=== PATIENT | female | born 1960 | race Caucasian/White ===

== ENCOUNTER 2017-03-04 08:40 | Emergency (ER) | payer BC ==
--- NOTE | 2017-03-04 08:51 | EDM.PDOC ---
ED HPI GI/ABDOMINAL - General Chief Complaint: Gastrointestinal Problem Stated Complaint: cold [id number] Time Seen by Provider: 03/04/17 08:50 Source of Information: Reports: Patient, Old records, RN, RN notes reviewed History Limitations: Reports: No limitations - History of Present Illness INITIAL COMMENTS - FREE TEXT/NARRATIVE: Arrives from home by POV with c/o persistent nausea, vomiting, diarrhea, and headache. Pt states she got sick around the 12 of February and was seen in clinic 02/15 and was Dx'd with a sinus infection and Tx'd with a shot of Rocephin and a Z-Sylvester. She wasn't feeling any better on the 02/17 and was leaving for 5 [place] in the [place], so she returned to clinic and tested positive for strep throat, and was treated with a second Z-Sylvester. While in the [facility] [place] she and most of her traveling republic[place] developed diarrhea. She hasn't felt well since returning home from the trip. Admits to sensations of fever and chills, but has not had a fever measured by thermometer. Denies sore throat, or abdominal pain. Denies bloody stool, dark or black stool, or melena. Symptom Onset Date: 02/12/17 Timing/Duration: Reports: Waxing/waning Location: generalized Quality: Reports: cramping Severity: moderate Improves with: Reports: other (nothing) Worsens with: Reports: other (eating or drinking) Context: Reports: sick contact, out of country travel, other (recent illness) Associated Symptoms (-Female): Reports: denies other symptoms Treatments [employer]: Reports: Other medication(s) - Related Data Allergies/ADRs: Allergies Allergy/AdvReac Type Severity Reaction Status Date / Time No Known Allergies Allergy Verified 03/04/17 08:56 Home Meds: Home Meds Pantoprazole Sodium 40 mg PO DAILY 06/09/14 [History] Multivitamin [Multivitamins] 1 each PO DAILY 03/10/15 [History] Venlafaxine HCl [Venlafaxine ER] 75 mg PO ASDIRECTED 09/18/15 [History] Acetaminophen [Tylenol Extra Strength] 2 tab PO Q4H 03/04/17 [History] Past Medical History Cardiovascular History: Reports: Blood clots/VTE/DVT Psychiatric History: Reports: Addiction (alcohol abuse) Hematologic History: Reports: Anemia Oncologic (Cancer) History: Reports: Breast - Past Surgical History Oncologic Surgical History: Reports: Mastectomy Social & Family History - Family History Family Medical History: Noncontributory - Tobacco Use Smoking Status *Q: Never Smoker Second Hand Smoke Exposure: No - Alcohol Use Alcohol Use History: Yes Days Per Week of Alcohol Use: 7 Number of Drinks Per Day: 4 Total Drinks Per Week: 28 - Recreational Drug Use Recreational Drug Use: No - Living Situation & Occupation Living situation: Reports: (), alone Occupation: employed ED ROS GENERAL - Review of Systems Review Of Systems: ROS reveals no pertinent complaints other than HPI. ED EXAM, GI/ABD - Physical Exam Exam: See Below Exam Limited By: No limitations General Appearance: alert, WD/WN, no apparent distress Eyes: bilateral: normal appearance, EOMI Nose: normal inspection Throat/Mouth: Normal inspection, Normal lips, Normal teeth, Normal gums, Normal oropharynx, Normal voice, No airway compromise Head: atraumatic, normocephalic Neck: normal inspection, supple, non-tender, full range of motion. No: lymphadenopathy (L), lymphadenopathy (R) Respiratory/Chest: no respiratory distress, lungs clear, normal breath sounds, no accessory muscle use, chest non-tender Cardiovascular: normal peripheral pulses, regular rate, rhythm, no edema, no gallop, no JVD, no murmur, no rub, tachycardia GI/Abdominal: soft, non tender, no distention, no abnormal bruit, hyperactive bowel sounds. No: guarding, rebound, rigidity (Female) Exam: Deferred Rectal (Female) Exam: Deferred Back Exam: normal inspection, full range of motion. No: CVA tenderness (L), CVA tenderness (R) Extremities: normal inspection, normal range of motion, non-tender, normal capillary refill, no pedal edema Neurological: alert, oriented, CN II-XII intact, normal cognition, normal gait, no motor/sensory deficits Psychiatric: normal affect, normal mood Skin Exam: Warm, Dry, Intact, Normal color, No rash Course - Vital Signs Last Recorded V/S: Last Vital Signs Temp 36.2 C 03/04/17 11:36 Pulse 96 03/04/17 11:36 Resp 18 03/04/17 11:36 BP 105/51 L 03/04/17 11:36 Pulse Ox 94 L 03/04/17 11:36 - Orders/Labs/Meds Orders: Active Orders 24 hr Category Date Time Status Peripheral IV Care [RC] . DIRECTED Care 03/04/17 09:01 Active CULTURE BLOOD [BC] Stat Lab 03/04/17 09:15 Received CULTURE BLOOD [BC] Stat Lab 03/04/17 09:15 Results CULTURE STREP A CONFIRMATION [] Stat Lab 03/04/17 09:36 Results STREP SCRN A RAPID W CULT CONF [RM] Stat Lab 03/04/17 09:36 Results UA W/MICROSCOPIC [URIN] Stat Lab 03/04/17 11:29 Results Sodium Chloride 0.9% [Saline Flush] Med 03/04/17 09:00 Active 10 ml FLUSH ASDIRECTED PRN Blood Culture x2 Reflex Set [OM.PC] Stat Oth 03/04/17 09:09 Ordered Peripheral IV Insertion Adult [OM.PC] Stat Oth 03/04/17 09:00 Ordered Medication Orders Sodium Chloride (Saline Flush) 10 ml FLUSH ASDIRECTED PRN PRN Reason: Keep Vein Open Last Admin: 03/04/17 09:10 Dose: 10 ml Labs: Laboratory Tests 03/04/17 03/04/17 03/04/17 Range/Units 09:15 09:15 11:29 WBC 3.6 L (5.0-10.0) 10^3/uL RBC 4.46 (4.2-5.4) 10^6/uL Hgb 10.0 L (12.0-16.0) g/dL Hct 32.2 L (37.0-47.0) % MCV 72.2 L (80-100) fL MCH 22.4 L (27.0-34.0) pg MCHC 31.1 L (33.0-35.0) g/dL Plt Count 96 L (150-450) 10^3/uL Neut % (Auto) 68.2 (42.2-75.2) % Lymph % (Auto) 15.5 L (20.5-50.1) % [place] % (Auto) 14.7 H (2-8) % Eos % (Auto) 0.8 L (1.0-3.0) % Baso % (Auto) 0.8 (0.0-1.0) % Sodium 137 (135-145) mmol/L Potassium 3.5 L (3.6-5.0) mmol/L Chloride 100 L (101-111) mmol/L Carbon Dioxide 24.0 (21.0-31.0) mmol/L Anion Gap 16.5 BUN 7 (7-18) mg/dL Creatinine 0.6 (0.6-1.3) mg/dL Est Cr Clr Drug Dosing TNP Estimated GFR (MDRD) > 60 BUN/Creatinine Ratio 11.66 Glucose 113 H (74-105) mg/dL Calcium 8.9 (8.4-10.2) mg/dl Total Bilirubin 1.2 H (0.2-1.0) mg/dL AST 62 H (10-42) IU/L ALT 38 (10-60) IU/L Alkaline Phosphatase 85 (42-121) IU/L Total Protein 6.8 (6.7-8.2) g/dl Albumin 3.7 (3.2-5.5) g/dl Globulin 3.1 Albumin/Globulin Ratio 1.19 Amylase 129 H (28-100) U/L Lipase 112 H (22-51) U/L Urine Color Dark yellow (YELLOW) Urine Appearance Cloudy (CLEAR) Urine pH 7.0 (5.0-9.0) Ur Specific [place] 1.020 (1.005-1.030) Urine Protein 30 H (NEGATIVE) Urine Glucose (UA) Negative (NEGATIVE) Urine Ketones 15 H (NEGATIVE) Urine Occult Blood Trace-intact H (NEGATIVE) Urine Nitrite Negative (NEGATIVE) Urine Bilirubin Moderate H (NEGATIVE) Urine Urobilinogen 1.0 (0.2-1.0) mg/dL Ur Leukocyte Esterase Small H (NEGATIVE) Pt unable to produce a stool specimen for culture during the ER stay. A stool collection container and lab order was sent home with pt. Meds: Medications Generic Name Dose Route Start Last Admin Trade Name Freq PRN Reason Stop Dose Admin Sodium Chloride 10 ml 03/04/17 09:00 03/04/17 09:10 Saline Flush FLUSH 10 ml ASDIRECTED PRN Administration Keep Vein Open Discontinued Medications Generic Name Dose Route Start Last Admin Trade Name Freq PRN Reason Stop Dose Admin Sodium Chloride 1,000 mls @ 999 mls/hr 03/04/17 09:00 03/04/17 09:11 Normal Saline IV 03/04/17 10:00 999 mls/hr .BOLUS ONE Administration Sodium Chloride 1,000 mls @ 999 mls/hr 03/04/17 10:17 03/04/17 10:19 Normal Saline IV 03/04/17 11:17 999 mls/hr .BOLUS ONE Administration Ketorolac Tromethamine 30 mg 03/04/17 10:47 03/04/17 11:23 Toradol IVPUSH 03/04/17 10:48 30 mg ONETIME ONE Administration Ondansetron HCl 4 mg 03/04/17 09:00 03/04/17 09:09 Zofran IV 03/04/17 09:01 4 mg ONETIME ONE Administration Ondansetron HCl 4 mg 03/04/17 10:47 03/04/17 11:21 Zofran IV 03/04/17 10:48 4 mg ONETIME ONE Administration - Re-Assessments/Exams Free Text/Narrative Re-Assessment/Exam: 03/04/17 11:20 I explained the exam findings, results of all diagnostic tests, working diagnosis, and any potential or additionally considered diagnoses, treatment/ disposition plan, self/home care instructions, rational for the diagnosis/ treatment plan/disposition plan, anticipated course of illness, and follow up instructions to the pt and/or pts family or guardian. The pt and/or pts family or guardian acknowledges understanding of the above explanation(s), and of the signs and symptoms which should prompt the return of the pt to the ER should those or any other concerning symptoms develop. Departure - Departure Time of Disposition: 11:20 Disposition: Home, Self-Care 01 Condition: fair Clinical Impression: Gastroenteritis presumed infectious, Pancytopenia Instructions: Diarrhea, Adult, Viral Gastroenteritis, Adult, [id number] Forms: ED Department Discharge Additional Instructions: Clear liquid diet until nausea & vomiting improve, then advance to soft bland diet as tolerated. Rx: Zofran 4mg Follow up for recheck with your doctor next week for recheck, and for review of your lab results (Complete Blood Count with pancytopenia). Return to ER if worse at any time. - My Orders Last 24 Hours: My Active Orders 03/04/17 09:00 Sodium Chloride 0.9% [Saline Flush] 10 ml FLUSH ASDIRECTED PRN Peripheral IV Insertion Adult [OM.PC] Stat 03/04/17 09:01 Peripheral IV Care [RC] . DIRECTED 03/04/17 09:09 Blood Culture x2 Reflex Set [OM.PC] Stat 03/04/17 09:15 CULTURE BLOOD [BC] Stat CULTURE BLOOD [BC] Stat 03/04/17 09:36 CULTURE STREP A CONFIRMATION [RM] Stat STREP SCRN A RAPID W CULT CONF [RM] Stat 03/04/17 11:29 UA W/MICROSCOPIC [URIN] Stat - Assessment/Plan Last 24 Hours: My Active Orders 03/04/17 09:00 Sodium Chloride 0.9% [Saline Flush] 10 ml FLUSH ASDIRECTED PRN Peripheral IV Insertion Adult [OM.PC] Stat 03/04/17 09:01 Peripheral IV Care [RC] . DIRECTED 03/04/17 09:09 Blood Culture x2 Reflex Set [OM.PC] Stat 03/04/17 09:15 CULTURE BLOOD [BC] Stat CULTURE BLOOD [BC] Stat 03/04/17 09:36 CULTURE STREP A CONFIRMATION [RM] Stat STREP SCRN A RAPID W CULT CONF [RM] Stat 03/04/17 11:29 UA W/MICROSCOPIC [URIN] Stat
[2017-03-04] MEDS ORDERED: Ondansetron 4 MG/2 ML SDV IV ONE ×2 (09:00→10:47)
[2017-03-04] MEDS ORDERED: Sodium Chloride 0.9% 1,000 ML IV ONE ×2 (09:00→10:17)
[2017-03-04] MEDS ORDERED: Sodium Chloride 0.9% 10 ML Syringe FLUSH PRN (09:00)
[2017-03-04 09:46] LABS: CHLORIDE,CL 100 mmol/L (101-111); SODIUM,NA 137 mmol/L (135-145)
[2017-03-04] MEDS ORDERED: Ketorolac 30 MG/ML SDV IVPUSH ONE (10:47)
[2017-03-04 11:37] VITALS: BP 105/51
== END 2017-03-04 11:55 | disposition home or self-care (01) ==
LOC: DL.ED 08:40
DX: K52.9 Noninfective gastroenteritis and colitis, unspecified (principal); D61.818 Other pancytopenia; Z86.718 Personal history of other venous thrombosis and embolism; D64.9 Anemia, unspecified; Z85.3 Personal history of malignant neoplasm of breast; F10.10 Alcohol abuse, uncomplicated
CPT/HCPCS: 36415; 80053; 81001; 82150; 82272; 83690; 85025; 87040; 87045; 87081; 87430; 87493; 87899; J1885; J2405; J7030; J7050; 87046; 96365; 96366; 96375; 96376; 99283

== ENCOUNTER 2017-03-11 19:47 | Inpatient (IN) | payer BC ==
--- NOTE | 2017-03-11 20:05 | EDM.PDOC ---
ED HISTORY OF PRESENT ILLNESS - General Chief Complaint: Respiratory Problem Stated Complaint: PROBLEMS BREATHING Time Seen by Provider: 03/11/17 20:03 Source of Information: Reports: Patient History Limitations: Reports: No limitations - History of Present Illness INITIAL COMMENTS - FREE TEXT/NARRATIVE: progressive SOB since , began while walking. no CP, but left shoulder area in the back hurts. - Related Data Allergies/ADRs: Allergies Allergy/AdvReac Type Severity Reaction Status Date / Time No Known Allergies Allergy Verified 03/11/17 19:52 Home Meds: Home Meds Pantoprazole Sodium 40 mg PO DAILY 06/09/14 [History] Multivitamin [Multivitamins] 1 each PO DAILY 03/10/15 [History] Acetaminophen [Tylenol Extra Strength] 2 tab PO Q4H PRN 03/04/17 [History] Past Medical History HEENT History: Reports: Impaired vision Cardiovascular History: Reports: Blood clots/VTE/DVT Respiratory History: Reports: None Gastrointestinal History: Reports: Other (see below) Other Gastrointestinal History: hx ulcers Genitourinary History: Reports: None 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 (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) Other OB/BYN History: hyserectomy Musculoskeletal History: Reports: None Neurological History: Reports: None Psychiatric History: Reports: Addiction, Depression Endocrine/Metabolic History: Reports: None Hematologic History: Reports: Anemia Immunologic History: Reports: None Oncologic (Cancer) History: Reports: Breast Dermatologic History: Reports: None - Infectious Disease History Infectious Disease History: Reports: None - Past Surgical History Head Surgeries/Procedures: Reports: None HEENT Surgical History: Reports: Other (see below) Other HEENT Surgeries/Procedures: nose surgery GI Surgical History: Reports: Bariatric procedure Oncologic Surgical History: Reports: Mastectomy Social & Family History - Family History Family Medical History: Noncontributory - Tobacco Use Smoking Status *Q: Never Smoker Second Hand Smoke Exposure: No - Caffeine Use Caffeine Use: Reports: Coffee, Soda - Alcohol Use Days Per Week of Alcohol Use: 7 Number of Drinks Per Day: 4 Total Drinks Per Week: 28 - Recreational Drug Use Recreational Drug Use: No - Living Situation & Occupation Living situation: Reports: (), alone Occupation: employed ED ROS GENERAL - Review of Systems Review Of Systems: ROS reveals no pertinent complaints other than HPI. ED EXAM, GENERAL - Physical Exam Exam: See Below Exam Limited By: No limitations General Appearance: alert, WD/WN, no apparent distress, anxious Ears: hearing grossly normal Throat/Mouth: Normal voice, No airway compromise Head: atraumatic Neck: non-tender, full range of motion Respiratory/Chest: no respiratory distress, lungs clear, normal breath sounds, no accessory muscle use Cardiovascular: regular rate, rhythm GI/Abdominal: soft, non tender Back Exam: muscle spasm, other (left rhomboid region) Extremities: pedal edema, other (bilat 2+, non tender) Neurological: alert, oriented, normal cognition, normal gait, no motor/sensory deficits Psychiatric: anxious Skin Exam: Warm, Dry Lymphatic: no adenopathy Course - Vital Signs Last Recorded V/S: Last Vital Signs Temp 36.2 C 03/11/17 19:49 Pulse 89 03/11/17 19:49 Resp 18 03/11/17 19:49 BP 151/76 H 03/11/17 19:49 Pulse Ox 97 03/11/17 19:49 - Orders/Labs/Meds Orders: Active Orders 24 hr Category Date Time Status EKG Documentation Completion [RC] STAT Care 03/11/17 20:02 Active CBC WITH AUTO DIFF [HEME] Stat Lab 03/11/17 20:10 Results MANUAL DIFFERENTIAL QA/NC [HEME] Stat Lab 03/11/17 20:10 Results Acetaminophen [Tylenol] Med 03/11/17 20:56 Once 325 mg PO NOW ONE Labs: Laboratory Tests 03/11/17 03/11/17 Range/Units 20:10 20:10 WBC 3.0 L (5.0-10.0) 10^3/uL RBC 3.80 L (4.2-5.4) 10^6/uL Hgb 8.5 L (12.0-16.0) g/dL Hct 28.7 L (37.0-47.0) % MCV 75.5 L (80-100) fL MCH 22.4 L (27.0-34.0) pg MCHC 29.6 L (33.0-35.0) g/dL Plt Count 210 (150-450) 10^3/uL Neut % (Auto) 56.8 (42.2-75.2) % Lymph % (Auto) 23.4 (20.5-50.1) % [place] % (Auto) 17.2 H (2-8) % Eos % (Auto) 1.3 (1.0-3.0) % Baso % (Auto) 1.3 H (0.0-1.0) % Add Manual Diff Yes Sodium 141 (135-145) mmol/L Potassium 3.6 (3.6-5.0) mmol/L Chloride 107 (101-111) mmol/L Carbon Dioxide 24.0 (21.0-31.0) mmol/L Anion Gap 13.6 BUN 8 (7-18) mg/dL Creatinine 0.6 (0.6-1.3) mg/dL Est Cr Clr Drug Dosing TNP Estimated GFR (MDRD) > 60 BUN/Creatinine Ratio 13.33 Glucose 89 (74-105) mg/dL Calcium 8.8 (8.4-10.2) mg/dl Total Bilirubin 0.5 (0.2-1.0) mg/dL AST 84 H (10-42) IU/L ALT 73 H (10-60) IU/L Alkaline Phosphatase 78 (42-121) IU/L Troponin I < 0.02 (0.00-0.02) ng/ml B-Natriuretic Peptide 451 H (0-100) pg/ml Total Protein 6.6 L (6.7-8.2) g/dl Albumin 3.8 (3.2-5.5) g/dl Globulin 2.8 Albumin/Globulin Ratio 1.36 Meds: Medications Discontinued Medications Generic Name Dose Route Start Last Admin Trade Name Freq PRN Reason Stop Dose Admin Acetaminophen 325 mg 03/11/17 20:56 Tylenol PO 03/11/17 20:57 NOW ONE - Re-Assessments/Exams Free Text/Narrative Re-Assessment/Exam: 03/11/17 20:39 results discussed with Pt who states had w/u in [place] 2 years ago for blood problem and had breast cancer with chemo few years back, had no problem till returning from vacation, was here a week ago and eval' denies tarry stools for bleeding anywhere. 03/11/17 20:[address] Hicks who kindly admitted Pt to observation. Departure - Departure Time of Disposition: 20:59 Disposition: Refer to Observation Condition: good Clinical Impression: Shortness of breath Forms: ED Department Discharge - My Orders Last 24 Hours: My Active Orders 03/11/17 20:02 EKG Documentation Completion [RC] STAT 03/11/17 20:10 CBC WITH AUTO DIFF [HEME] Stat MANUAL DIFFERENTIAL QA/NC [HEME] Stat 03/11/17 20:56 Acetaminophen [Tylenol] 325 mg PO NOW ONE - Assessment/Plan Last 24 Hours: My Active Orders 03/11/17 20:02 EKG Documentation Completion [RC] STAT 03/11/17 20:10 CBC WITH AUTO DIFF [HEME] Stat MANUAL DIFFERENTIAL QA/NC [HEME] Stat 03/11/17 20:56 Acetaminophen [Tylenol] 325 mg PO NOW ONE
[2017-03-11 20:36] LABS: CHLORIDE,CL 107 mmol/L (101-111); SODIUM,NA 141 mmol/L (135-145)
[2017-03-11] MEDS ORDERED: Acetaminophen 325 MG Tab PO ONE (20:56)
[2017-03-11] MEDS ORDERED: Zolpidem 5 MG Tab PO PRN (22:03)
[2017-03-11] MEDS ORDERED: Ondansetron 4 MG Tab.DIS PO PRN (22:03)
[2017-03-11] MEDS ORDERED: Docusate Sodium 100 MG Cap PO PRN (22:03)
[2017-03-11] MEDS ORDERED: Sodium Chloride 0.9% 10 ML Syringe FLUSH PRN (22:03)
[2017-03-11] MEDS ORDERED: Ondansetron 4 MG/2 ML SDV IVPUSH PRN (22:03)
--- NOTE | 2017-03-11 22:13 | PCM.HP ---
H&P History of Present Illness - General Date of Service: 03/11/17 Admit Problem/Dx: Admission Diagnosis/Problem Admission Diagnosis/Problem Dyspnea Source of Information: Patient - History of Present Illness Initial Comments - Free Text/Narative: the patient presented with shortness of breath to the emergency room She has a personal history of DVT and pulmonary embolism, has a family history of blood clots in the brother and the mother The patient has a history of anemia, has been evaluated extensively. She was told to take iron but she has been poorly tolerating that because of nausea. She has a history of gastric bypass surgery but not taking a multivitamin supplement. The patient has recently traveled to the [facility]. shortly after this time the patient had nausea vomiting and diarrhea. This has improved. About 4 days prior to this admission she noticed increasing shortness of breath , especially with activity. No chest pain associated with this. She also noted bilateral but especially left lower extremity swelling. She has no fever, no cough. No black or bloody stool, not vomiting and he blood-appearing material. Upper Back Pain Score (Numeric/FACES): 5 - Related Data Allergies/Adverse Reactions: Allergies Allergy/AdvReac Type Severity Reaction Status Date / Time No Known Allergies Allergy Verified 03/11/17 19:52 Home Medications: Home Meds Pantoprazole Sodium 40 mg PO DAILY 06/09/14 [History] Multivitamin [Multivitamins] 1 each PO DAILY 03/10/15 [History] Acetaminophen [Tylenol Extra Strength] 2 tab PO Q4H PRN 03/04/17 [History] Past Medical History HEENT History: Reports: Impaired vision Cardiovascular History: Reports: Blood clots/VTE/DVT Respiratory History: Reports: None Gastrointestinal History: Reports: Other (see below) Other Gastrointestinal History: hx ulcers, gastric bypass Genitourinary History: Reports: None [employer] ASSOCIATE History: Reports: Other (see below) Other OB/BYN History: hysterectomy Musculoskeletal History: Reports: None Neurological History: Reports: None Psychiatric History: Reports: Addiction, Depression Endocrine/Metabolic History: Reports: None Hematologic History: Reports: Anemia, Iron deficiency Immunologic History: Reports: None Oncologic (Cancer) History: Reports: Breast Dermatologic History: Reports: None - Infectious Disease History Infectious Disease History: Reports: None - Past Surgical History Head Surgeries/Procedures: Reports: None HEENT Surgical History: Reports: Other (see below) Other HEENT Surgeries/Procedures: nose surgery GI Surgical History: Reports: Bariatric procedure Female Surgical History: Reports: Mastectomy Oncologic Surgical History: Reports: Mastectomy Social & Family History - Family History Hematologic: Reports: Other (see below) (DVT (mother, brother)) - Tobacco Use Smoking Status *Q: Never Smoker Second Hand Smoke Exposure: No - Caffeine Use Caffeine Use: Reports: Coffee, Soda - Alcohol Use Days Per Week of Alcohol Use: 1 Number of Drinks Per Day: 0 Total Drinks Per Week: 0 - Recreational Drug Use Recreational Drug Use: No - Living Situation & Occupation Living situation: Reports: (), alone Occupation: employed H&P Review of Systems - Review of Systems: Review Of Systems: See Below General: Denies: fever Pulmonary: Reports: Shortness of Breath. Denies: Wheezing, Pleuritic Chest Pain , Hemoptysis Cardiovascular: Reports: dyspnea on exertion, edema. Denies: chest pain, palpitations, syncope Gastrointestinal: Denies: Abdominal pain Psychiatric: Denies: confusion Hematologic/Lymphatic: Reports: anemia Exam - Exam Exam: See Below - Vital Signs Vital Signs: Last Vital Signs Temp 36.2 C 03/11/17 19:49 Pulse 89 03/11/17 19:49 Resp 18 03/11/17 19:49 BP 151/76 H 03/11/17 19:49 Pulse Ox 97 03/11/17 19:49 Weight: 75.75 kg - Exam Quality Assessment: No: supplemental oxygen General: alert, oriented HEENT: EOMI Neck: supple, trachea midline Lungs: Clear to auscultation, Normal respiratory effort Cardiovascular: regular rate, regular rhythm Abdomen: normal bowel sounds, soft Back Exam: normal inspection Extremities: edema (b/l LE) Skin: warm, dry Neuro Extensive - Mental Status: alert, oriented x3, normal mood/affect Psychiatric: alert, normal affect, anxious - Patient Data Result Diagrams: 03/11/17 20:10 03/11/17 20:10 Imaging Impressions last 24 hrs: CXR: per my reading: no CHF *Q Meaningful Use (ADM) - VTE *Q VTE Criteria *Q: - Stroke *Q Stroke Criteria *Q: - AMI *Q AMI Criteria *Q: - Problem List (1) Anemia SNOMED Code(s): 095911327 ICD Code: D64.9 - ANEMIA, UNSPECIFIED Status: Acute Current Visit: Yes (2) Shortness of breath SNOMED Code(s): 320660359 ICD Code: R06.02 - SHORTNESS OF BREATH Status: Acute Current Visit: Yes Problem List Initiated/Reviewed/Updated: Yes Orders Last 24hrs: Active Orders 24 hr Category Date Time Status Patient Status [ADT] Routine ADT 03/11/17 22:03 Ordered Antiembolic Devices [RC] PER UNIT ROUTINE Care 03/11/17 22:05 Ordered Oxygen Therapy [RC] PRN Care 03/11/17 22:03 Ordered Peripheral IV Care [RC] . DIRECTED Care 03/11/17 22:05 Ordered Up With Assistance [RC] ASDIRECTED Care 03/11/17 22:03 Ordered VTE/DVT Education [RC] PER UNIT ROUTINE Care 03/11/17 22:03 Ordered Vital Signs [RC] Q4H Care 03/11/17 22:03 Ordered Regular Diet [DIET] Diet 03/11/17 Breakfast Ordered Chest PE [Ang Chest] [CT] Routine Exams 03/11/17 21:43 Ordered Venous Doppler Lwr Ext Bi [US] Routine Exams 03/11/17 21:56 Ordered B-TYPE NATRIURETIC PEPTIDE,BNP [CHEM] AM Lab 03/13/17 05:11 Ordered BASIC METABOLIC PANEL,BMP [CHEM] AM Lab 03/12/17 05:15 Ordered CBC WITH AUTO DIFF [HEME] AM Lab 03/12/17 05:15 Ordered FOLATE [REF] AM Lab 03/12/17 05:11 Ordered IRON [REF] AM Lab 03/12/17 05:11 Ordered TROPONIN I [CHEM] AM Lab 03/12/17 05:11 Ordered VITAMIN B12 [REF] AM Lab 03/12/17 05:11 Ordered Acetaminophen [Tylenol] Med 03/11/17 22:03 Ordered 650 mg PO Q4H PRN Docusate Sodium [Colace] Med 03/11/17 22:03 Ordered 100 mg PO BID PRN Enoxaparin [Lovenox] Med 03/11/17 22:00 Active 80 mg SUBCUT Q12HR Furosemide [Lasix] Med 03/11/17 22:00 Active 20 mg IVPUSH DAILY Multivitamins,Therapeutic [Thera] Med 03/12/17 09:00 Active 1 each PO DAILY Ondansetron [Zofran ODT] Med 03/11/17 22:03 Ordered 4 mg PO Q6H PRN Ondansetron [Zofran] Med 03/11/17 22:03 Ordered 4 mg IVPUSH Q6H PRN Pantoprazole [ProTONIX] Med 03/12/17 06:00 Active 40 mg PO ACBREAKFAST Potassium Chloride [Klor-Con 10] Med 03/11/17 22:00 Active 20 meq PO WITHBREAKFAST Sodium Chloride 0.9% [Saline Flush] Med 03/11/17 22:03 Ordered 10 ml FLUSH ASDIRECTED PRN Zolpidem [Ambien] Med 03/11/17 22:03 Ordered 5 mg PO BEDTIME PRN Antiembolic Hose [OM.PC] Per Unit Routine Oth 03/11/17 22:04 Ordered Peripheral IV Insertion Adult [OM.PC] Routine Oth 03/11/17 22:03 Ordered Saline Lock Insert [OM.PC] Routine Oth 03/11/17 22:03 Ordered Resuscitation Status Routine Resus Stat 03/11/17 22:03 Ordered Medication Orders Acetaminophen (Tylenol) 650 mg PO Q4H PRN PRN Reason: Pain (Mild 1-3)/fever Docusate Sodium (Colace) 100 mg PO BID PRN PRN Reason: Constipation Enoxaparin Sodium (Lovenox) 80 mg SUBCUT Q12HR MICHAEL Furosemide (Lasix) 20 mg IVPUSH DAILY MICHAEL Multivitamins (Thera) 1 each PO DAILY MICHAEL Ondansetron HCl (Zofran Odt) 4 mg PO Q6H PRN PRN Reason: nausea, able to take PO Ondansetron HCl (Zofran) 4 mg IVPUSH Q6H PRN PRN Reason: Nausea/Vomiting Pantoprazole Sodium (Protonix) 40 mg PO ACBREAKFAST MICHAEL Potassium Chloride (Klor-Con 10) 20 meq PO WITHBREAKFAST MICHAEL Sodium Chloride (Saline Flush) 10 ml FLUSH ASDIRECTED PRN PRN Reason: Keep Vein Open Zolpidem Tartrate (Ambien) 5 mg PO BEDTIME PRN PRN Reason: Sleep Assessment/Plan Comment:: Shortness of breath The patient has a personal history of DVT and pulmonary embolism, recent long distance flight, history of breast cancer, presence of lower extremity edema. All of this make the patient high risk for depressants of pulmonary embolism. We'll start 1 mg per kilogram twice a day weight-based Lovenox empirically We will obtain CT chest rule out pulmonary embolism Obtain lower extremity ultrasound to rule out DVT Other differential diagnosis might include acute CHF With the presence of lower extremity edema, elevated BNP Need echocardiogram for further catheterization - this can be obtained as outpatient For now we'll start Lasix and potassium Follow swelling and Symptoms No apparent pneumonia, or infectious symptoms Doubt cardiac ischemia as the cause is, but we'll recheck troponin in the morning Acute on chronic anemia The patient says she has a history of iron deficiency anemia but has been poorly tolerating oral iron supplement I do not think the patient requires blood transfusion at this time We'll check iron B12 folate levels Recheck hemoglobin in the morning Will start iron supplement subsequently DVT prophylaxis will be with full dose anticoagulation with Lovenox d/w dr. Fiore
[2017-03-11] MEDS ORDERED: Iopamidol 755 Mg/ML 100 ML Bottle IVPUSH ONE (22:22)
[2017-03-11] MEDS: Enoxaparin 80 MG/0.8 ML Syringe SUBCUT SCH (22:47)
[2017-03-11] MEDS: Potassium Chloride 10 MEQ Tab.ER PO SCH (22:48)
[2017-03-11] MEDS: Furosemide 20 MG/2 ML VIAL IVPUSH SCH (23:15)
[2017-03-12] MEDS: Acetaminophen 325 MG Tab PO PRN ×2 (03:58→12:37)
[2017-03-12] MEDS: diphenhydrAMINE 12.5 MG/5 ML Liquid 5 ML UD Cup PO PRN ×2 (05:09→20:03)
[2017-03-12] MEDS: Pantoprazole 40 MG Tab.CR PO SCH (06:15)
[2017-03-12 06:43] LABS: CHLORIDE,CL 102 mmol/L (101-111); SODIUM,NA 136 mmol/L (135-145)
[2017-03-12] MEDS: Potassium Chloride 10 MEQ Tab.ER PO SCH (08:31)
[2017-03-12] MEDS: Furosemide 20 MG/2 ML VIAL IVPUSH SCH (08:31)
[2017-03-12] MEDS: Multivitamins,Therapeutic Tab PO SCH (08:32)
[2017-03-12] MEDS: Enoxaparin 80 MG/0.8 ML Syringe SUBCUT SCH ×2 (08:32→21:03)
[2017-03-12] MEDS ORDERED: Potassium Chloride 10 MEQ Tab.ER PO ONE (09:53)
--- NOTE | 2017-03-12 10:08 | PCM.PN ---
- General Info Date of Service: 03/12/17 Admission Dx/Problem (Free Text): Admission Diagnosis/Problem Admission Diagnosis/Problem Dyspnea Subjective Update: overnight remained stable SOB started days prior to admission, still present, moderate, not associated with CP worse with activity leg swelling is better - Review of Systems General: Denies: Fever, Weakness Pulmonary: Reports: shortness of breath. Denies: cough Cardiovascular: Denies: Chest Pain Gastrointestinal: Denies: Abdominal pain Neurological: Denies: Confusion, Dizziness - Patient Data Vitals - most recent: Last Vital Signs Temp 36.6 C 03/12/17 02:19 Pulse 89 03/12/17 02:19 Resp 16 03/12/17 02:19 BP 103/47 L 03/12/17 02:19 Pulse Ox 95 03/12/17 02:19 Weight - most recent: 75.75 kg I&O - last 24 hours: Intake & Output 03/11/17 03/12/17 03/12/17 22:59 06:59 14:59 Intake Total 1000 Output Total 2300 Balance -1300 Lab Results last 24 hrs: Laboratory Results - last 24 hr 03/12/17 03/12/17 Range/Units 06:12 06:12 WBC 2.9 L (5.0-10.0) 10^3/uL RBC 3.68 L (4.2-5.4) 10^6/uL Hgb 8.2 L (12.0-16.0) g/dL Hct 27.2 L (37.0-47.0) % MCV 73.9 L (80-100) fL MCH 22.3 L (27.0-34.0) pg MCHC 30.1 L (33.0-35.0) g/dL Plt Count 192 (150-450) 10^3/uL Neut % (Auto) 42.7 (42.2-75.2) % Lymph % (Auto) 33.7 (20.5-50.1) % [place] % (Auto) 20.4 H (2-8) % Eos % (Auto) 1.1 (1.0-3.0) % Baso % (Auto) 2.1 H (0.0-1.0) % Sodium 136 (135-145) mmol/L Potassium 3.3 L (3.6-5.0) mmol/L Chloride 102 (101-111) mmol/L Carbon Dioxide 25.0 (21.0-31.0) mmol/L Anion Gap 12.3 BUN 6 L (7-18) mg/dL Creatinine 0.6 (0.6-1.3) mg/dL Est Cr Clr Drug Dosing 81.82 mL/min Estimated GFR (MDRD) > 60 Glucose 93 (74-105) mg/dL Calcium 8.5 (8.4-10.2) mg/dl Troponin I < 0.02 (0.00-0.02) ng/ml Med Orders - Current: Current Medications Acetaminophen (Tylenol) 650 mg PO Q4H PRN PRN Reason: Pain (Mild 1-3)/fever Last Admin: 03/12/17 03:58 Dose: 650 mg Diphenhydramine HCl (Benadryl) 25 mg PO QID PRN PRN Reason: Itching Last Admin: 03/12/17 05:09 Dose: 25 mg Docusate Sodium (Colace) 100 mg PO BID PRN PRN Reason: Constipation Enoxaparin Sodium (Lovenox) 80 mg SUBCUT Q12HR [facility] Last Admin: 03/12/17 08:32 Dose: 80 mg Multivitamins (Thera) 1 each PO DAILY [facility] Last Admin: 03/12/17 08:32 Dose: 1 each Ondansetron HCl (Zofran Odt) 4 mg PO Q6H PRN PRN Reason: nausea, able to take PO Ondansetron HCl (Zofran) 4 mg IVPUSH Q6H PRN PRN Reason: Nausea/Vomiting Pantoprazole Sodium (Protonix) 40 mg PO ACBREAKFAST [facility] Last Admin: 03/12/17 06:15 Dose: 40 mg Potassium Chloride (Klor-Con 10) 40 meq PO ONETIME ONE Stop: 03/12/17 09:54 Sodium Chloride (Saline Flush) 10 ml FLUSH ASDIRECTED PRN PRN Reason: Keep Vein Open Last Admin: 03/12/17 08:32 Dose: 10 ml Warfarin Sodium (Pharmacy To Dose - Warfarin) 1 dose .XX ASDIRECTED [facility] Zolpidem Tartrate (Ambien) 5 mg PO BEDTIME PRN PRN Reason: Sleep Discontinued Medications Acetaminophen (Tylenol) 325 mg PO NOW ONE Stop: 03/11/17 20:57 Last Admin: 03/11/17 22:48 Dose: 325 mg Furosemide (Lasix) 20 mg IVPUSH DAILY [facility] Last Admin: 03/12/17 08:31 Dose: 20 mg Iopamidol (Isovue-370 (76%)) 100 ml IVPUSH ONETIME ONE Stop: 03/11/17 22:23 Last Admin: 03/11/17 22:45 Dose: 100 ml Potassium Chloride (Klor-Con 10) 20 meq PO WITHBREAKFAST [facility] Last Admin: 03/12/17 08:31 Dose: 20 meq - Exam Quality Assessment: No: supplemental oxygen General: alert, oriented HEENT: Other (upper lip with cold sore) Neck: supple Lungs: Clear to auscultation, Normal respiratory effort Cardiovascular: Regular Rate, Regular Rhythm Abdomen: bowel sounds present, soft, no tenderness, no distension Back Exam: normal inspection, full range of motion Extremities: no edema Skin: warm, dry, intact Psy/Mental Status: alert, normal affect, normal mood - Problem List & Annotations (1) Anemia SNOMED Code(s): 476508096 Code(s): D64.9 - ANEMIA, UNSPECIFIED Status: Acute Current Visit: Yes Qualifiers: Anemia type: iron deficiency (2) Shortness of breath SNOMED Code(s): 682952720 Code(s): R06.02 - SHORTNESS OF BREATH Status: Acute Current Visit: Yes (3) Pulmonary embolism SNOMED Code(s): 84484906, 81374137 Code(s): I26.99 - OTHER PULMONARY EMBOLISM WITHOUT ACUTE COR PULMONALE Status: Acute Current Visit: Yes Qualifiers: Pulmonary embolism type: saddle Chronicity: acute Acute cor pulmonale presence: with acute cor pulmonale Qualified Code(s): I26.02 - Saddle embolus of pulmonary artery with acute cor pulmonale - Problem List Review Problem List Initiated/Reviewed/Updated: Yes - My Orders Last 24 Hours: My Active Orders 03/12/17 04:52 diphenhydrAMINE [Benadryl] 25 mg PO QID PRN 03/12/17 09:52 Communication Order [RC] 08,20 03/12/17 09:53 Potassium Chloride [Klor-Con 10] 40 meq PO ONETIME ONE 03/12/17 09:57 Communication Order [RC] ROUTINE 03/12/17 10:00 Warfarin Pharmacy to Dose [Pharmacy to Dose - Warfarin] 1 dose .XX ASDIRECTED 03/13/17 05:15 BASIC METABOLIC PANEL,BMP [CHEM] AM CBC WITH AUTO DIFF [HEME] AM 03/14/17 05:11 INR,PT,PROTHROMBIN TIME [COAG] AM 03/15/17 05:11 INR,PT,PROTHROMBIN TIME [COAG] AM 03/16/17 05:11 INR,PT,PROTHROMBIN TIME [COAG] AM 03/17/17 05:11 INR,PT,PROTHROMBIN TIME [COAG] AM - Plan Plan:: 1. Shortness of breath due to acute pulmonary embolism The patient has a personal history of DVT and pulmonary embolism, recent long distance flight, history of breast cancer, presence of lower extremity edema. CT Chest showed b/l PE Started weight-based Lovenox Obtain lower extremity ultrasound to rule out DVT discussed coumadin and newer anticoagulants eg/ xarelto, eliquis pt. would like to use coumadin - she used that before along with lovenox bridging teach lovenox start coumadin follow INR daily and adjust Coumadin for target INR of 2-3 we discussed to postpone her elective breast surgery 2. Acute on chronic anemia with a history of iron deficiency anemia she has been poorly tolerating oral iron supplement I do not think the patient requires blood transfusion at this time We'll check iron B12 folate levels and supplement them as needed Recheck hemoglobin in the morning 3. hypokalemia We'll replace this and recheck in the morning
--- NOTE | 2017-03-12 10:45 | US ---
CLINICAL HISTORY: 57-year-old female with remote history of surgery and "PE with DVT" complaining no w of shortness of breath. Interpretation: Abnormal. Some intraluminal echogenic thrombus and abnormal (noncompressible) popliteal veins bilaterally with only "trickle" flow demonstrated with augmentation. No sign of intraluminal echogenic thrombus and normal compressibility deep veins of both groins and thighs with satisfactory augmentation and venous waveform in the femoral veins of both lower extremi ties. CONCLUSION: Deep vein thrombosis (DVT) both popliteal veins.
[2017-03-13] MEDS: Pantoprazole 40 MG Tab.CR PO SCH (05:37)
[2017-03-13 06:59] LABS: CHLORIDE,CL 108 mmol/L (101-111); SODIUM,NA 137 mmol/L (135-145)
[2017-03-13] MEDS: Multivitamins,Therapeutic Tab PO SCH (09:38)
[2017-03-13] MEDS: Enoxaparin 80 MG/0.8 ML Syringe SUBCUT SCH (09:39)
--- NOTE | 2017-03-13 10:46 | PCM.DCSUM1 ---
Discharge Summary - Hospital Course Free Text/Narrative:: The patient has a personal history of DVT and pulmonary embolism, recent long distance flight, history of breast cancer, presented with of lower extremity edema and SOB 1. Shortness of breath due to acute pulmonary embolism CT Chest showed b/l PE lower extremity ultrasound showed b/l popliteal DVT Started weight-based Lovenox and coumadin remained hemodynamically stable will discharge with coumadin and Lovenox bridging will follow up as out pt with INR on Sunday then adjust coumadin and decide if Lovenox can be stopped use compression stocking we discussed to postpone her elective breast surgery 2. Acute on chronic anemia with a history of iron deficiency anemia she has been poorly tolerating oral iron supplement in the past iron level was low B12 and folate levels were good follow as out pt - Discharge Data Discharge Date: 03/13/17 Discharge Disposition: Home, Self-Care 01 Condition: Good - Discharge Diagnosis/Problem(s) (1) Anemia SNOMED Code(s): 825795356 ICD Code: D64.9 - ANEMIA, UNSPECIFIED Status: Acute Current Visit: Yes Qualifiers: Anemia type: iron deficiency (2) Shortness of breath SNOMED Code(s): 713961516 ICD Code: R06.02 - SHORTNESS OF BREATH Status: Acute Current Visit: Yes (3) Pulmonary embolism SNOMED Code(s): 86668662, 06257369 ICD Code: I26.99 - OTHER PULMONARY EMBOLISM WITHOUT ACUTE COR PULMONALE Status: Acute Current Visit: Yes Qualifiers: Pulmonary embolism type: saddle Chronicity: acute Acute cor pulmonale presence: with acute cor pulmonale Qualified Code(s): I26.02 - Saddle embolus of pulmonary artery with acute cor pulmonale - Patient Instructions Diet: Heart Healthy Diet Activity: As Tolerated - Discharge Plan Prescriptions/Med Rec: Enoxaparin [Lovenox] 80 mg SUBCUT Q12HR #6 syringe Ferrous Sulfate [Iron] 325 mg PO DAILY #30 capsule.er Warfarin Sodium 5 mg PO DAILY #30 tablet Zolpidem [Ambien] 5 mg PO BEDTIME PRN #10 tablet PRN Reason: Sleep Home Medications: Home Meds Pantoprazole Sodium 40 mg PO DAILY 06/09/14 [History] Acetaminophen [Tylenol Extra Strength] 2 tab PO Q4H PRN 03/04/17 [History] Enoxaparin [Lovenox] 80 mg SUBCUT Q12HR #6 syringe 03/13/17 [Rx] Ferrous Sulfate [Iron] 325 mg PO DAILY #30 capsule.er 03/13/17 [Rx] Warfarin Sodium 5 mg PO DAILY #30 tablet 03/13/17 [Rx] Zolpidem [Ambien] 5 mg PO BEDTIME PRN #10 tablet 03/13/17 [Rx] Other Amb Orders: Antiembolic Hose [OM.PC] Location: Determined By Patient Referrals: PCP,Unobtain [Primary Care Provider] - (Alesia Lerma on Sunday to check INR, adjust coumadin and lovenox) - Discharge Summary/Plan Comment DC Time >30 min.: No - General Info Date of Service: 03/13/17 Admission Dx/Problem (Free Text: Admission Diagnosis/Problem Admission Diagnosis/Problem Dyspnea Subjective Update: overnight remained stable SOB started days prior to admission, still present, mild, not associated with CP worse with activity but able to ambulate leg swelling is gone feeling well - Review of Systems General: Denies: Fever Pulmonary: Reports: shortness of breath. Denies: pleuritic chest pain, cough Cardiovascular: Denies: Chest Pain Gastrointestinal: Denies: Abdominal pain Genitourinary: Denies: dysuria Neurological: Denies: Confusion - Patient Data Vitals - Most Recent: Last Vital Signs Temp 36.7 C 03/13/17 07:00 Pulse 80 03/13/17 07:00 Resp 20 03/13/17 07:00 BP 94/57 L 03/13/17 07:00 Pulse Ox 99 03/13/17 07:00 Weight - Most Recent: 75.75 kg I&O - Last 24 hours: Intake & Output 03/12/17 03/13/17 03/13/17 22:59 06:59 14:59 Intake Total 1390 900 Output Total 1150 1800 Balance 240 -900 Lab Results - Last 24 hrs: Laboratory Results - last 24 hr 03/12/17 03/12/17 03/12/17 Range/Units 06:12 06:12 06:12 WBC (5.0-10.0) 10^3/uL RBC (4.2-5.4) 10^6/uL Hgb (12.0-16.0) g/dL Hct (37.0-47.0) % MCV (80-100) fL MCH (27.0-34.0) pg MCHC (33.0-35.0) g/dL Plt Count (150-450) 10^3/uL Neut % (Auto) (42.2-75.2) % Lymph % (Auto) (20.5-50.1) % [place] % (Auto) (2-8) % Eos % (Auto) (1.0-3.0) % Baso % (Auto) (0.0-1.0) % PT (9.0-12.0) SEC INR (0.9-1.2) Sodium (135-145) mmol/L Potassium (3.6-5.0) mmol/L Chloride (101-111) mmol/L Carbon Dioxide (21.0-31.0) mmol/L Anion Gap BUN (7-18) mg/dL Creatinine (0.6-1.3) mg/dL Est Cr Clr Drug Dosing mL/min Estimated GFR (MDRD) Glucose (74-105) mg/dL Calcium (8.4-10.2) mg/dl Iron 6 L (40-150) ug/dL Vitamin B12 444 (180-914) pg/mL Folate 19.0 ng/mL 03/12/17 03/13/17 03/13/17 Range/Units 06:12 06:20 06:20 WBC 3.6 L (5.0-10.0) 10^3/uL RBC 4.16 L (4.2-5.4) 10^6/uL Hgb 9.3 L (12.0-16.0) g/dL Hct 31.2 L (37.0-47.0) % MCV 75.0 L (80-100) fL MCH 22.4 L (27.0-34.0) pg MCHC 29.8 L (33.0-35.0) g/dL Plt Count 249 (150-450) 10^3/uL Neut % (Auto) 48.6 (42.2-75.2) % Lymph % (Auto) 30.6 (20.5-50.1) % [place] % (Auto) 18.3 H (2-8) % Eos % (Auto) 1.1 (1.0-3.0) % Baso % (Auto) 1.4 H (0.0-1.0) % PT 11.1 (9.0-12.0) SEC INR 1.1 (0.9-1.2) Sodium 137 (135-145) mmol/L Potassium 3.9 (3.6-5.0) mmol/L Chloride 108 (101-111) mmol/L Carbon Dioxide 26.0 (21.0-31.0) mmol/L Anion Gap 6.9 BUN 5 L (7-18) mg/dL Creatinine 0.5 L (0.6-1.3) mg/dL Est Cr Clr Drug Dosing 98.18 mL/min Estimated GFR (MDRD) > 60 Glucose 100 (74-105) mg/dL Calcium 8.7 (8.4-10.2) mg/dl Iron (40-150) ug/dL Vitamin B12 (180-914) pg/mL Folate ng/mL Med Orders - Current: Current Medications Acetaminophen (Tylenol) 650 mg PO Q4H PRN PRN Reason: Pain (Mild 1-3)/fever Last Admin: 03/12/17 12:37 Dose: 650 mg Diphenhydramine HCl (Benadryl) 25 mg PO QID PRN PRN Reason: Itching Last Admin: 03/12/17 20:03 Dose: 25 mg Docusate Sodium (Colace) 100 mg PO BID PRN PRN Reason: Constipation Enoxaparin Sodium (Lovenox) 80 mg SUBCUT Q12HR [facility] Last Admin: 03/13/17 09:39 Dose: 80 mg Multivitamins (Thera) 1 each PO DAILY [facility] Last Admin: 03/13/17 09:38 Dose: 1 each Ondansetron HCl (Zofran Odt) 4 mg PO Q6H PRN PRN Reason: nausea, able to take PO Ondansetron HCl (Zofran) 4 mg IVPUSH Q6H PRN PRN Reason: Nausea/Vomiting Pantoprazole Sodium (Protonix) 40 mg PO ACBREAKFAST [facility] Last Admin: 03/13/17 05:37 Dose: 40 mg Sodium Chloride (Saline Flush) 10 ml FLUSH ASDIRECTED PRN PRN Reason: Keep Vein Open Last Admin: 03/12/17 08:32 Dose: 10 ml Warfarin Sodium (Pharmacy To Dose - Warfarin) 1 dose .XX ASDIRECTED [facility] Zolpidem Tartrate (Ambien) 5 mg PO BEDTIME PRN PRN Reason: Sleep Last Admin: 03/12/17 21:44 Dose: 5 mg Discontinued Medications Acetaminophen (Tylenol) 325 mg PO NOW ONE Stop: 03/11/17 20:57 Last Admin: 03/11/17 22:48 Dose: 325 mg Furosemide (Lasix) 20 mg IVPUSH DAILY [facility] Last Admin: 03/12/17 08:31 Dose: 20 mg Iopamidol (Isovue-370 (76%)) 100 ml IVPUSH ONETIME ONE Stop: 03/11/17 22:23 Last Admin: 03/11/17 22:45 Dose: 100 ml Potassium Chloride (Klor-Con 10) 20 meq PO WITHBREAKFAST [facility] Last Admin: 03/12/17 08:31 Dose: 20 meq Potassium Chloride (Klor-Con 10) 40 meq PO ONETIME ONE Stop: 03/12/17 09:54 Last Admin: 03/12/17 10:53 Dose: 40 meq - Exam Quality Assessment: Denies: supplemental oxygen General: Reports: alert, oriented Neck: Reports: supple Lungs: Reports: Clear to auscultation, Normal respiratory effort Cardiovascular: Reports: Regular Rate, Regular Rhythm Abdomen: Reports: bowel sounds present, soft, no tenderness, no distension Extremities: Reports: no edema, normal pulses Neurological: Reports: no new focal deficit Psy/Mental Status: Reports: alert, normal affect, normal mood *Q Meaningful Use (DIS) - VTE *Q VTE Criteria *Q: - Stroke *Q Stroke Criteria *Q: - AMI *Q AMI Criteria *Q:
[2017-03-13 12:12] VITALS: BP 114/50
--- NOTE | 2017-03-13 13:25 | EKG ---
03/11/2017- APOLLO VAIL - EKG per my reading shows sinus rhythm at a rate of 69. [facility] /[id number]
[2017-03-13] MEDS ORDERED: Warfarin 2.5 MG Tab PO ONE (14:00)
== END 2017-03-13 13:00 | disposition home or self-care (01) | DRG 134 ==
LOC: DL.ED 19:47 → UNDOADMOB 21:15 → DL.MS 21:15 → OBSVTOIN 03-12 00:23
PROVIDERS: ADMIT Internal Medicine; ATTEND Internal Medicine
DX: I26.99 Other pulmonary embolism without acute cor pulmonale (principal); Z86.718 Personal history of other venous thrombosis and embolism; Z79.01 Long term (current) use of anticoagulants; Z85.3 Personal history of malignant neoplasm of breast; D50.9 Iron deficiency anemia, unspecified; E87.6 Hypokalemia
CPT/HCPCS: 36415; 71020; 71260; 80048; 80053; 82607; 82746; 83540; 83880; 84484; 85025; 85610; 93005; 93970; 96372; 99285; A9270-GY; G0378; J1650; J1940; J7050; Q9967

== ENCOUNTER 2017-04-14 13:33 | Emergency (ER) | payer BC ==
[2017-04-14] MEDS ORDERED: Sodium Chloride 0.9% 10 ML Syringe FLUSH PRN (13:50)
[2017-04-14] MEDS ORDERED: Ondansetron 4 MG/2 ML SDV IV ONE (13:51)
[2017-04-14] MEDS ORDERED: diphenhydrAMINE 50 MG/ML SDV IVPUSH ONE (13:51)
[2017-04-14] MEDS ORDERED: Sodium Chloride 0.9% 1,000 ML IV STA (13:59)
[2017-04-14] MEDS ORDERED: LORazepam 2 MG/ML Syringe IVPUSH ONE ×2 (14:00→17:09)
--- NOTE | 2017-04-14 14:10 | EDM.PDOC ---
{null, ED HPI GENERAL MEDICAL PROBLEM - General Chief Complaint: Respiratory Problem Stated Complaint: WEAK, SOB, POST BLOOD CLOTS 03/11 Time Seen by Provider: 04/14/17 13:52 Source of Information: Reports: Patient History Limitations: Reports: No Limitations - History of Present Illness INITIAL COMMENTS - FREE TEXT/NARRATIVE: patient comes emergency Department today with complaints of shortness of breath. This started all of a sudden this morning. She is unable to catch her breath. She denies any fever or chills. Does complain of a congested cough. She denies any pain in her chest. No production with her cough. She was discharged approximately one month ago after being diagnosed with a bilateral DVT as well as pulmonary embolism. She was placed on warfarin and her last INR 2 days ago was 2.5 she reports. She was fine up until this morning without complaints. She denies any abdominal pain. She does complain of some nausea without vomiting. No hematuria dysuria or urinary frequency. No flank pain. She does complain of some numbness and tingling to her lower extremities although this is been going on for quite some time. - Related Data Allergies Allergy/AdvReac Type Severity Reaction Status Date / Time No Known Allergies Allergy Verified 03/11/17 19:52 Home Meds: Home Meds Pantoprazole Sodium 40 mg PO DAILY 06/09/14 [History] Acetaminophen [Tylenol Extra Strength] 2 tab PO Q4H PRN 03/04/17 [History] Enoxaparin [Lovenox] 80 mg SUBCUT Q12HR #6 syringe 03/13/17 [Rx] Ferrous Sulfate [Iron] 325 mg PO DAILY #30 capsule.er 03/13/17 [Rx] Warfarin Sodium 5 mg PO DAILY #30 tablet 03/13/17 [Rx] Zolpidem [Ambien] 5 mg PO BEDTIME PRN #10 tablet 03/13/17 [Rx] Past Medical History HEENT History: Reports: Impaired Vision Cardiovascular History: Reports: Blood Clots/VTE/DVT Respiratory History: Reports: None Gastrointestinal History: Reports: Other (See Below) Other Gastrointestinal History: hx ulcers, gastric bypass Genitourinary History: Reports: None 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: 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 (See Below) Other OB/BYN History: hysterectomy Musculoskeletal History: Reports: None Neurological History: Reports: None Psychiatric History: Reports: Addiction, Depression Endocrine/Metabolic History: Reports: None Hematologic History: Reports: Anemia, Iron Deficiency Immunologic History: Reports: None Oncologic (Cancer) History: Reports: Breast Dermatologic History: Reports: None - Infectious Disease History Infectious Disease History: Reports: None - Past Surgical History HEENT Surgical History: Reports: Other (See Below) GI Surgical History: Reports: Bariatric Procedure Social & Family History - Family History Family Medical History: Noncontributory Hematologic: Reports: Other (See Below) - Tobacco Use Smoking Status *Q: Never Smoker Second Hand Smoke Exposure: No - Caffeine Use Caffeine Use: Reports: Coffee, Soda - Alcohol Use Days Per Week of Alcohol Use: 1 Number of Drinks Per Day: 0 Total Drinks Per Week: 0 - Recreational Drug Use Recreational Drug Use: No - Living Situation & Occupation Living situation: Reports: , Alone Occupation: Employed ED ROS GENERAL - Review of Systems Review Of Systems: See Below Constitutional: Reports: No Symptoms HEENT: Reports: No Symptoms Endocrine: Reports: No Symptoms : Reports: No Symptoms Skin: Reports: No Symptoms Neurological: Reports: No Symptoms Psychiatric: Reports: Anxiety Immunologic: Reports: No Symptoms ED EXAM, GENERAL - Physical Exam Exam: See Below Exam Limited By: No Limitations General Appearance: Alert, WD/WN, No Apparent Distress Ears: Normal External Exam, Normal Canal, Normal TMs Nose: Normal Inspection, Normal Mucosa, No Blood Throat/Mouth: Normal Inspection, Normal Lips, Normal Oropharynx Head: Atraumatic, Normocephalic Neck: Normal Inspection, Supple, Non-Tender, Full Range of Motion Respiratory/Chest: No Respiratory Distress, Lungs Clear, Normal Breath Sounds, No Accessory Muscle Use, Chest Non-Tender Cardiovascular: Normal Peripheral Pulses, Regular Rate, Rhythm, No Gallop, No JVD, No Murmur Peripheral Pulses: 2+: Radial (L), Radial (R), Posterior Tibial (L), Posterior Tibial (R), Dorsalis Pedis (L), Dorsalis Pedis (R) GI/Abdominal: Normal Bowel Sounds, Soft, Non-Tender, No Organomegaly, No Abnormal Bruit, No Mass (Female) Exam: Deferred Rectal (Female) Exam: Deferred Back Exam: Normal Inspection, Full Range of Motion. No: CVA Tenderness (L), CVA Tenderness (R) Extremities: Normal Inspection, Normal Range of Motion, Non-Tender, No Pedal Edema, Normal Capillary Refill Neurological: Alert, Oriented, CN II-XII Intact, Normal Cognition, No Motor/ Sensory Deficits Psychiatric: Anxious Skin Exam: Dry, Intact, No Rash, Pallor Lymphatic: No Adenopathy EKG INTERPRETATION EKG Date: 04/14/17 Time: 13:40 Rhythm: NSR Rate (beats/min): 77 [place]: normal P-wave: present QRS: normal ST-T: normal QT: normal Comparison: no change Course - Vital Signs Last Recorded V/S: Last Vital Signs Temp 36.1 C 04/14/17 15:59 Pulse 110 H 04/14/17 15:59 Resp 24 H 04/14/17 15:59 BP 99/56 L 04/14/17 15:59 Pulse Ox 98 04/14/17 15:03 Vital Signs 04/14/17 04/14/17 04/14/17 14:13 15:03 15:59 Temperature [ 35.5 C 36.1 C Temporal] Pulse, 87 81 110 H Peripheral [ Pulse Oximetry] Respiratory 21 H 24 H Rate Blood Pressure 131/115 H 99/56 L [Right Upper Arm] O2 Sat by Pulse 93 L Oximetry O2 Sat by Pulse 98 Oximetry [Room Air] - Orders/Labs/Meds Orders: Active Orders 24 hr Category Date Time Status EKG 12 Lead [EKG Documentation Completion] [RC] URGENT Care 04/14/17 13:50 Active Peripheral IV Care [RC] . DIRECTED Care 04/14/17 13:50 Active RT Aerosol Therapy [RC] ASDIRECTED Care 04/14/17 15:03 Active Peripheral IV Insertion Adult [OM.PC] Stat Oth 04/14/17 13:50 Ordered Labs: Laboratory Tests 04/14/17 04/14/17 04/14/17 Range/Units 13:48 13:48 13:48 WBC 2.9 L (5.0-10.0) 10^3/uL RBC 3.99 L (4.2-5.4) 10^6/uL Hgb 8.6 L (12.0-16.0) g/dL Hct 28.4 L (37.0-47.0) % MCV 71.2 L (80-100) fL MCH 21.6 L (27.0-34.0) pg MCHC 30.3 L (33.0-35.0) g/dL Plt Count 130 L (150-450) 10^3/uL Neut % (Auto) 63.0 (42.2-75.2) % Lymph % (Auto) 25.5 (20.5-50.1) % [place] % (Auto) 9.4 H (2-8) % Eos % (Auto) 0.7 L (1.0-3.0) % Baso % (Auto) 1.4 H (0.0-1.0) % PT 38.7 H (9.0-12.0) SEC INR 3.8 H (0.9-1.2) Sodium 142 (135-145) mmol/L Potassium 3.4 L (3.6-5.0) mmol/L Chloride 105 (101-111) mmol/L Carbon Dioxide 21.0 (21.0-31.0) mmol/L Anion Gap 19.4 BUN 5 L (7-18) mg/dL Creatinine 0.5 L (0.6-1.3) mg/dL Est Cr Clr Drug Dosing TNP Estimated GFR (MDRD) > 60 BUN/Creatinine Ratio 10.00 Glucose 90 (74-105) mg/dL Calcium 8.9 (8.4-10.2) mg/dl Total Bilirubin 1.0 (0.2-1.0) mg/dL AST 193 H (10-42) IU/L ALT 59 (10-60) IU/L Alkaline Phosphatase 95 (42-121) IU/L Troponin I < 0.02 (0.00-0.02) ng/ml B-Natriuretic Peptide 19 (0-100) pg/ml Total Protein 7.0 (6.7-8.2) g/dl Albumin 3.8 (3.2-5.5) g/dl Globulin 3.2 Albumin/Globulin Ratio 1.19 Ethyl Alcohol 35 mg/dL Meds: Medications Discontinued Medications Generic Name Dose Route Start Last Admin Trade Name Freq PRN Reason Stop Dose Admin Albuterol 2.5 mg 04/14/17 15:03 04/14/17 15:09 Proventil Neb Soln NEB 04/14/17 15:04 2.5 mg ONETIME ONE Administration Diphenhydramine HCl 25 mg 04/14/17 13:51 04/14/17 14:03 Benadryl IVPUSH 05/20/17 13:52 25 mg ONETIME ONE Administration Sodium Chloride 1,000 mls @ 250 mls/hr 04/14/17 13:59 04/14/17 14:05 Normal Saline IV 04/14/17 17:58 250 mls/hr NOW STA Administration Sodium Chloride 1,000 mls @ 999 mls/hr 04/14/17 15:18 04/14/17 15:53 Normal Saline IV 04/14/17 16:18 Not Given .BOLUS ONE Sodium Chloride 1,000 mls @ 999 mls/hr 04/14/17 16:59 04/14/17 17:13 Normal Saline IV 04/14/17 17:59 999 mls/hr .BOLUS ONE Administration Iopamidol 100 ml 04/14/17 15:53 04/14/17 15:54 Isovue-370 (76%) IVPUSH 04/14/17 15:54 100 ml ONETIME ONE Administration Lorazepam 1 mg 04/14/17 14:00 04/14/17 14:05 Ativan IVPUSH 04/14/17 14:01 1 mg ONETIME ONE Administration Lorazepam 1 mg 04/14/17 17:09 04/14/17 17:13 Ativan IVPUSH 04/14/17 17:10 1 mg ONETIME ONE Administration Ondansetron HCl 4 mg 04/14/17 13:51 04/14/17 14:03 Zofran IV 04/14/17 13:52 4 mg ONETIME ONE Administration Sodium Chloride 10 ml 04/14/17 13:50 Saline Flush FLUSH ASDIRECTED PRN Keep Vein Open - Re-Assessments/Exams Free Text/Narrative Re-Assessment/Exam: 04/14/17 IV normal saline 1 L wide open for IV hydration. Benadryl 25 mg IV push. Zofran 4 mg IV push. Ativan 1 mg IV push. The patient did have some improvement of her shortness of breath as well as shaking tremors and anxiety. Her nausea was resolved. Her chest x-ray was unremarkable without any acute findings per radiology and her laboratory evaluation as well as negative. Her son is at the bedside in a verbal disagreement with her over her rather large amount of alcohol intake. She does relate to me that she has only drank once in the last 6 months although the son is here draped multiple times more than that. She still continues to have shortness of breath which was the same symptoms that she had when she was diagnosed with a pulmonary embolus one month ago. To ensure that she does not have worsening pulmonary embolism although she is hypertherapeutic on her Coumadin I think that a CT scan of her chest would be most appropriate at this time. I also wonder if some of her shortness of breath and anxiety is not due to alcohol withdrawal or healing over. She did not disagree with that assumption. CT scan of the chest per radiology no new pulmonary embolism. No aortic aneurysm no aortic dissection. The patient continues to be mildly tachycardic and anxious. Following a liter of normal saline as a second liter as well as one more milligram of Ativan her shortness of breath was completely resolved. I talked to her at length about the importance of not consuming any alcohol during the usage of her Coumadin. This can lead to some very serious side effects. There is no evidence of any pathology that is acute at this time for her shortness of breath and I think that this is most likely due to alcohol withdrawal and anxiety. She does have quite a bit of social stress at this time with her sister who is terminally ill with cancer. Discharge instructions as below her explained to the patient she was comfortable with this plan and her questions were answered. Departure - Departure Time of Disposition: 18:17 Disposition: Home, Self-Care 01 Clinical Impression: Shortness of breath, Anxiety Alcohol withdrawal Qualifiers: Complication of substance-induced condition: with unspecified complication Qualified Code(s): F10.239 - Alcohol dependence with withdrawal, unspecified - Discharge Information Instructions: Panic Attacks, [id number], Shortness of Breath, [id number], Pulmonary Embolism Referrals: PCP,None [Primary Care Provider] - Forms: ED Department Discharge Additional Instructions: Ativan 1 tab three times aday as needed for anxiety and SOB. Hold coumadin tomorrow start back on normal dose on sunday. Have your INR checked with primary care provider on sunday. NO ALCOHOL WHILE TAKING COUMADIN. NONE AT ALL. Return to the ED if new or worsening symptoms. Recheck with primary care provider on sunday. - My Orders Last 24 Hours: My Active Orders 04/14/17 13:50 EKG 12 Lead [EKG Documentation Completion] [RC] URGENT Peripheral IV Care [RC] . DIRECTED Peripheral IV Insertion Adult [OM.PC] Stat 04/14/17 15:03 RT Aerosol Therapy [RC] ASDIRECTED - Assessment/Plan Last 24 Hours: My Active Orders 04/14/17 13:50 EKG 12 Lead [EKG Documentation Completion] [RC] URGENT Peripheral IV Care [RC] . DIRECTED Peripheral IV Insertion Adult [OM.PC] Stat 04/14/17 15:03 RT Aerosol Therapy [RC] ASDIRECTED Assessment:: Shortness of breath, anxiety vs alcohol withdrawal hangover? Anxiety. HX of PE, no new today. Coumadin therapy. Hypertherapeutic coumadin level. Plan: Ativan 1 tab three times aday as needed for anxiety and SOB. Hold coumadin tomorrow start back on normal dose on sunday. Have your INR checked with primary care provider on sunday. NO ALCOHOL WHILE TAKING COUMADIN. NONE AT ALL. Return to the ED if new or worsening symptoms. Recheck with primary care provider on sunday. }
[2017-04-14 14:25] LABS: CHLORIDE,CL 105 mmol/L (101-111); SODIUM,NA 142 mmol/L (135-145)
[2017-04-14] MEDS ORDERED: Albuterol 0.083% 2.5 MG/3 ML Neb Soln NEB ONE (15:03)
[2017-04-14] MEDS ORDERED: Sodium Chloride 0.9% 1,000 ML IV ONE ×2 (15:18→16:59)
[2017-04-14] MEDS ORDERED: Iopamidol 755 Mg/ML 100 ML Bottle IVPUSH ONE (15:53)
[2017-04-14 16:00] VITALS: BP 99/56
--- NOTE | 2017-04-17 13:51 | EKG ---
{null, 04/14/2017- APOLLO VAIL - A 12-lead EKG shows normal sinus rhythm. Noted to have PVCs on this EKG. No significant ST elevation or ST depression noted on this 12-lead EKG. T-wave inversions noted on lead V1 and V2. [facility] /[id number] }
== END 2017-04-14 18:35 | disposition home or self-care (01) ==
LOC: DL.ED 13:33
DX: F10.239 Alcohol dependence with withdrawal, unspecified (principal); F41.9 Anxiety disorder, unspecified; F32.9 Major depressive disorder, single episode, unspecified; D64.9 Anemia, unspecified; Z79.899 Other long term (current) drug therapy; Z90.710 Acquired absence of both cervix and uterus; Z98.84 Bariatric surgery status
CPT/HCPCS: 36415; 71020; 71260; 80053; 83880; 84484; 85025; 85610; 93005; 94640; 96365; 96366; 96375; 99285; G0480; J1200; J2060; J2405; J7030; J7620; Q9967

== ENCOUNTER 2018-07-09 06:18 | Emergency (ER) | payer SELFPAY ==
[2018-07-09 06:36] VITALS: BP 114/73
[2018-07-09] MEDS ORDERED: Ondansetron 4 MG/2 ML SDV IV ONE (06:46)
[2018-07-09] MEDS ORDERED: Famotidine 20 MG/2 ML SDV IVPUSH ONE (06:46)
[2018-07-09] MEDS ORDERED: Acetaminophen 325 MG Tab PO ONE (06:46)
[2018-07-09 07:00] LABS: ANION GAP 14.8; CHLORIDE,CL 98 mmol/L (101-111); SODIUM,NA 137 mmol/L (135-145)
[2018-07-09] MEDS ORDERED: Iopamidol 755 Mg/ML 100 ML Bottle IVPUSH ONE (07:20)
[2018-07-09] MEDS ORDERED: Potassium Chloride 10 MEQ in Premix Bag 1 BAG IV ONE (07:50)
--- NOTE | 2018-07-09 07:51 | EDM.PDOC ---
<Diandra Eng Amadeo - Last Filed: 07/09/18 07:59> ED HPI GENERAL MEDICAL PROBLEM - General Chief Complaint: Chest Pain Stated Complaint: CHEST PAIN Time Seen by Provider: 07/09/18 06:30 Source of Information: Reports: Patient History Limitations: Reports: No Limitations - History of Present Illness INITIAL COMMENTS - FREE TEXT/NARRATIVE: ED with c/o chest pain, noting pain right upper back in shoulder blade area, radiation to right arm, occasional cough, no fever, nausea no emesis starting yesterday Hxs of PE in past and does feel some similar, Also in past 5 days resumed Lexapro, has 3 doses then nausea Headache Pain Score (Numeric/FACES): 3 - Related Data Allergies Allergy/AdvReac Type Severity Reaction Status Date / Time No Known Allergies Allergy Verified 07/09/18 06:33 Home Meds: Home Meds Pantoprazole Sodium 40 mg PO DAILY 06/09/14 [History] Acetaminophen [Tylenol Extra Strength] 2 tab PO Q4H PRN 03/04/17 [History] Zolpidem [Ambien] 5 mg PO BEDTIME PRN #10 tablet 03/13/17 [Rx] Apixaban [Eliquis] 1 tab PO DAILY 07/09/18 [History] Escitalopram [Lexapro] 20 mg PO DAILY 07/09/18 [History] Folic Acid 1 mg PO DAILY 07/09/18 [History] Hydrocodone/Acetaminophen [Hydrocodon-Acetaminophen 5-325] 0.5 each PO ASDIRECTED PRN 07/09/18 [History] Multivitamin [Multivitamins] 1 each PO DAILY 07/09/18 [History] Past Medical History HEENT History: Reports: Impaired Vision Cardiovascular History: Reports: Blood Clots/VTE/DVT Respiratory History: Reports: PE Gastrointestinal History: Reports: Other (See Below) Other Gastrointestinal History: hx ulcers, gastric bypass Genitourinary History: Reports: None 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 (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 Below) 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 STRATEGIC PLANNING DIRECTOR History: hysterectomy Musculoskeletal History: Reports: None Neurological History: Reports: None Psychiatric History: Reports: Addiction, Depression Endocrine/Metabolic History: Reports: None Hematologic History: Reports: Anemia, Iron Deficiency Immunologic History: Reports: None Oncologic (Cancer) History: Reports: Breast Dermatologic History: Reports: None - Infectious Disease History Infectious Disease History: Reports: None - Past Surgical History Head Surgeries/Procedures: Reports: None GI Surgical History: Reports: Bariatric Procedure Social & Family History - Family History Family Medical History: Noncontributory Hematologic: Reports: Other (See Below) - Tobacco Use Smoking Status *Q: Never Smoker - Caffeine Use Caffeine Use: Reports: Coffee, Soda - Recreational Drug Use Recreational Drug Use: No - Living Situation & Occupation Living situation: Reports: , Alone Occupation: Employed ED ROS GENERAL - Review of Systems Review Of Systems: ROS reveals no pertinent complaints other than HPI. ED EXAM, GENERAL - Physical Exam Exam: See Below Exam Limited By: No Limitations General Appearance: Alert, No Apparent Distress, Anxious Eye Exam: Bilateral Eye: EOMI Ears: Normal External Exam Ear Exam: Bilateral Ear: TM normal Nose: Normal Inspection Throat/Mouth: Normal Inspection, Normal Oropharynx, Normal Voice, No Airway Compromise Head: Atraumatic, Normocephalic Neck: Normal Inspection, Supple, Full Range of Motion Respiratory/Chest: No Respiratory Distress, Lungs Clear, Normal Breath Sounds Cardiovascular: Normal Peripheral Pulses, Regular Rate, Rhythm, No Edema GI/Abdominal: Normal Bowel Sounds Extremities: Normal Range of Motion Neurological: Alert, Oriented, Normal Cognition Skin Exam: Warm, Dry, Intact, Normal Color, Wound/Incision (shallow ulcers bilateral lower shins) Course - Vital Signs Last Recorded V/S: Last Vital Signs Temp 36.4 C 07/09/18 06:33 Pulse 64 07/09/18 06:33 Resp 16 07/09/18 06:33 BP 114/73 07/09/18 06:33 Pulse Ox 99 07/09/18 06:33 - Orders/Labs/Meds Orders: Active Orders 24 hr Category Date Time Status EKG 12 Lead [EKG Documentation Completion] [RC] URGENT Care 07/09/18 06:40 Active UA W/MICROSCOPIC [URIN] Stat Lab 07/09/18 06:36 Ordered Labs: Laboratory Tests 07/09/18 07/09/18 07/09/18 Range/Units 06:30 06:30 06:30 WBC 4.7 L (5.0-10.0) 10^3/uL RBC 4.82 (4.2-5.4) 10^6/uL Hgb 15.3 D (12.0-16.0) g/dL Hct 44.9 (37.0-47.0) % MCV 93.2 D (80-100) fL MCH 31.7 (27.0-34.0) pg MCHC 34.1 (33.0-35.0) g/dL Plt Count 61 L (150-450) 10^3/uL Neut % (Auto) 59.7 (42.2-75.2) % Lymph % (Auto) 27.0 (20.5-50.1) % [place] % (Auto) 12.2 H (2-8) % Eos % (Auto) 0.9 L (1.0-3.0) % Baso % (Auto) 0.2 (0.0-1.0) % PT (9.0-12.0) SEC INR (0.9-1.2) D-Dimer, Quantitative 982 H (0-400) ng/mL Sodium 137 (135-145) mmol/L Potassium 2.8 L (3.6-5.0) mmol/L Chloride 98 L (101-111) mmol/L Carbon Dioxide 27.0 (21.0-31.0) mmol/L Anion Gap 14.8 BUN 7 (7-18) mg/dL Creatinine 0.6 (0.6-1.3) mg/dL Est Cr Clr Drug Dosing 80.83 mL/min Estimated GFR (MDRD) > 60 BUN/Creatinine Ratio 11.66 Glucose 108 H (74-105) mg/dL Calcium 8.9 (8.4-10.2) mg/dl Total Bilirubin 1.8 H (0.2-1.0) mg/dL AST 49 H (10-42) IU/L ALT 21 (10-60) IU/L Alkaline Phosphatase 96 (42-121) IU/L Troponin I < 0.02 (0.00-0.02) ng/ml Total Protein 6.7 (6.7-8.2) g/dl Albumin 3.6 (3.2-5.5) g/dl Globulin 3.1 Albumin/Globulin Ratio 1.16 Amylase 127 H (28-100) U/L Lipase 151 H (22-51) U/L Ethyl Alcohol < 5 mg/dL 07/09/18 Range/Units 06:30 WBC (5.0-10.0) 10^3/uL RBC (4.2-5.4) 10^6/uL Hgb (12.0-16.0) g/dL Hct (37.0-47.0) % MCV (80-100) fL MCH (27.0-34.0) pg MCHC (33.0-35.0) g/dL Plt Count (150-450) 10^3/uL Neut % (Auto) (42.2-75.2) % Lymph % (Auto) (20.5-50.1) % [place] % (Auto) (2-8) % Eos % (Auto) (1.0-3.0) % Baso % (Auto) (0.0-1.0) % PT 10.4 D (9.0-12.0) SEC INR 1.0 (0.9-1.2) D-Dimer, Quantitative (0-400) ng/mL Sodium (135-145) mmol/L Potassium (3.6-5.0) mmol/L Chloride (101-111) mmol/L Carbon Dioxide (21.0-31.0) mmol/L Anion Gap BUN (7-18) mg/dL Creatinine (0.6-1.3) mg/dL Est Cr Clr Drug Dosing mL/min Estimated GFR (MDRD) BUN/Creatinine Ratio Glucose (74-105) mg/dL Calcium (8.4-10.2) mg/dl Total Bilirubin (0.2-1.0) mg/dL AST (10-42) IU/L ALT (10-60) IU/L Alkaline Phosphatase (42-121) IU/L Troponin I (0.00-0.02) ng/ml Total Protein (6.7-8.2) g/dl Albumin (3.2-5.5) g/dl Globulin Albumin/Globulin Ratio Amylase (28-100) U/L Lipase (22-51) U/L Ethyl Alcohol mg/dL Meds: Medications Discontinued Medications Generic Name Dose Route Start Last Admin Trade Name Freq PRN Reason Stop Dose Admin Acetaminophen 650 mg 07/09/18 06:46 07/09/18 06:51 Tylenol PO 07/09/18 06:47 650 mg NOW ONE Administration Hydrocodone Bitart/Acetaminophen 1 tab 07/09/18 09:31 07/09/18 09:36 [place] 325-10 Mg PO 07/09/18 09:32 1 tab ONETIME ONE Administration Famotidine 20 mg 07/09/18 06:46 07/09/18 06:52 Pepcid IVPUSH 07/09/18 06:47 20 mg ONETIME ONE Administration Potassium Chloride 10 meq/ 100 mls @ 100 mls/hr 07/09/18 07:50 07/09/18 07:58 Premix IV 07/09/18 08:49 100 mls/hr ONETIME ONE Administration Iopamidol 100 ml 07/09/18 07:20 07/09/18 07:39 Isovue-370 (76%) IVPUSH 07/09/18 07:21 59 ml ONETIME ONE Administration Ondansetron HCl 4 mg 07/09/18 06:46 07/09/18 06:52 Zofran IV 07/09/18 06:47 4 mg ONETIME ONE Administration Departure - Departure Disposition: Home, Self-Care 01 Clinical Impression: Gall bladder disease, Hypokalemia Instructions: Hypokalemia, Cholelithiasis, Jyiz-it-Cylm, Gallbladder Eating Plan, Potassium Content of Foods Forms: ED Department Discharge Care Plan Goals: The patient was advised of the examination, lab and CT results during the visit. The patient was given IV Potassium while in the ED and an oral dose of [place] while in the ED. The patient was discharged with a script for [place] (10) #18 to take 1 by mouth every 6 hours as needed for pain. The patient was encouraged to follow-up with her primary care provider for further evaluation ( gallbladder ultrasound) and treatment. If the patient has any additional symptoms or concerns, the patient should visit her primary care facility or return to the emergency department. <Bon Giron M - Last Filed: 07/09/18 09:47> Course - Re-Assessments/Exams Free Text/Narrative Re-Assessment/Exam: 07/09/18 09:[address] was further reviewed by Dr. Tomlin (Radiologist). Dr. Tomlin reported that the patient does have a diseased gallbladder that would be better assessed with an ultrasound. Departure - Departure Time of Disposition: 09:39 Condition: Fair
--- NOTE | 2018-07-09 09:26 | CT ---
Addendum: Diseased gallbladder i.e. Gallbladder distended RUQ with 2 separate collections of calcific ation (stones?) identified respectively in the fundus and at the neck of the gallbladder. Ultrasound recommended. No biliary duct dilatation.
[2018-07-09] MEDS ORDERED: Acetaminophen/HYDROcodone 325-10 MG Tab PO ONE (09:31)
--- NOTE | 2018-07-10 12:49 | EKG ---
07/09/2018- APOLLO VAIL - FINDINGS: A 12-lead EKG shows normal sinus rhythm with sinus bradycardia with heart rate of 58. No significant ST elevation or ST depression noted on this 12- lead EKG. [facility] /[id number]
== END 2018-07-09 09:49 | disposition home or self-care (01) ==
LOC: DL.ED 06:18
DX: K82.9 Disease of gallbladder, unspecified (principal); E87.6 Hypokalemia; Z79.899 Other long term (current) drug therapy
CPT/HCPCS: 36415; 71260; 80053; 82150; 83690; 84484; 85025; 85379; 85610; 93005; 93010; 96365; 96375; 99283; 99285; A9270; G0480; J2405; J3480; J3490; Q9967

== ENCOUNTER 2018-07-22 05:46 | Day surgery (SDC) | payer MEDICAID ==
[2018-07-22] MEDS ORDERED: fentaNYL 100 MCG/2 ML SDV IV ONE ×3 (05:47→06:58)
[2018-07-22] MEDS ORDERED: Midazolam 1 MG/ML 2 ML SDV IV ONE ×4 (05:47→07:00)
[2018-07-22] MEDS ORDERED: Sodium Chloride 0.9% 10 ML Syringe FLUSH PRN (06:00)
[2018-07-22] MEDS: Dextrose 5%-0.45% NaCl 1,000 ML IV SCH ×2 (06:25→07:48)
[2018-07-22] MEDS ORDERED: fentaNYL 100 MCG/2 ML SDV ONE (06:35)
[2018-07-22] MEDS ORDERED: Midazolam 1 MG/ML 2 ML SDV ONE (06:35)
[2018-07-22] MEDS ORDERED: Sodium Chloride 0.9% 250 ML IV SCH (07:00)
--- NOTE | 2018-07-22 08:57 | OR ---
DATE: 07/22/2018 PROCEDURES: Esophagogastroduodenoscopy, multiple pinch biopsies, brush biopsy for cytology. INSTRUMENT USED: GIF-H180 Olympus video panendoscope. PREMEDICATIONS: No oral topical anesthesia used. Fentanyl 100 mcg intravenous, Versed 2 mg intravenous. Nasal O2 cannula. The procedure was done under pulse oximetry, BP recording, and conveyor monitor. INDICATION: The patient with previous gastric bypass surgery, on PPI, with persistent upper abdominal pain unexplained. DESCRIPTION OF PROCEDURE: Esophagogastroduodenoscopy is performed for detection of any active erosive lesions. Malignancy also under consideration. H. pylori status to be determined. Endoscopic hemostasis therapy if needed. The scope was passed with ease. Adequate visualization of the esophagus was made from proximal to distal areas. No upper esophageal lesions identified. No distal esophageal stricture. No uphill or downhill esophageal varices. No Amberly-Alejandro tear. No evidence of erosive esophagitis by Martelle criteria. No esophageal polyp or tumor mass identified. Z-line was seen at around 40 cm distal to the oral verge, configuration consistent with grade 1 by ZAP classification. No proximal gastric varices noted. Gastric fundus examination with retroflexion showed no polypoid lesions. Gastric stump showed no ulcer, malignant mass, or vascular ectasia. At the anastomotic site, more than 1-cm sized benign-appearing ulcer was noted without bleeding from it. Photographs were taken. Numerous pinch biopsies, 4 in number, were taken from different areas of the ulcer. [place] biopsy was taken for cytology. Visualized loops of the small bowel were unremarkable. Multiple pinch biopsies were taken from the distal and proximal gastric mucosa and sent for PyloriTek test for H. pylori and histopathology. Photographs were taken of the gastric fundus as well as distal esophagus. No bleeding was noted from any of the visualized areas at the completion of examination. IMPRESSION: Anastomotic ulcer. The patient tolerated the procedure well. [facility] /[id number]
[2018-07-22 09:59] VITALS: BP 102/77
== END 2018-07-22 09:15 | disposition home or self-care (01) ==
LOC: DL.ENDO 05:46
PROVIDERS: ATTEND Internal Medicine Gastroenterology
DX: K29.50 Unspecified chronic gastritis without bleeding (principal); K25.9 Gastric ulcer, unspecified as acute or chronic, without hemorrhage or perforation; Z98.84 Bariatric surgery status; K52.89 Other specified noninfective gastroenteritis and colitis; F41.1 Generalized anxiety disorder; F32.9 Major depressive disorder, single episode, unspecified
CPT/HCPCS: 43239; 87077; J2250; J3010; J7042; J7050

== ENCOUNTER 2018-12-20 03:26 | Inpatient (IN) | payer MEDICAID ==
[2018-12-20] MEDS ORDERED: Ondansetron 4 MG/2 ML SDV IV ONE (03:39)
[2018-12-20] MEDS ORDERED: MVI, Adult with Vitamin K 10 ML, Folic Acid 1 MG, Thiamine 100 MG in Lactated Ringers 1... IV ONE ×4 (03:46)
--- NOTE | 2018-12-20 03:54 | EDM.PDOCBH ---
ED HPI GENERAL MEDICAL PROBLEM - General Chief Complaint: Drug or Alcohol Abuse Stated Complaint: INTOXICATED, SHAKING [id number] Time Seen by Provider: 12/20/18 03:50 Source of Information: Reports: Patient History Limitations: Reports: No Limitations - History of Present Illness INITIAL COMMENTS - FREE TEXT/NARRATIVE: states been drinking 3 days and stopped 2 days ago, started shaking tonight. has been sober for 14 months. Headache Pain Score (Numeric/FACES): 7 - Related Data Allergies Allergy/AdvReac Type Severity Reaction Status Date / Time No Known Allergies Allergy Verified 10/08/18 08:24 Home Meds: Home Meds Pantoprazole Sodium 40 mg PO BID 06/09/14 [History] Acetaminophen [Tylenol Extra Strength] 500 - 1,000 mg PO Q4H PRN 03/04/17 [ History] Apixaban [Eliquis] 5 mg PO DAILY 07/09/18 [History] Escitalopram [Lexapro] 20 mg PO DAILY 07/09/18 [History] Folic Acid 1 mg PO DAILY 07/09/18 [History] Hydrocodone/Acetaminophen [Hydrocodon-Acetaminophen 5-325] 0.5 each PO Q6H PRN 07/09/18 [History] Potassium Chloride 10 meq PO DAILY 10/08/18 [History] Past Medical History HEENT History: Reports: Impaired Vision, Sinusitis Cardiovascular History: Reports: Blood Clots/VTE/DVT Respiratory History: Reports: PE Gastrointestinal History: Reports: PUD, Other (See Below) Other Gastrointestinal History: hx ulcers, gastric bypass Genitourinary History: Reports: None DESIGNER/WRITER History: Reports: Other (See Below) Other DESIGNER/WRITER History: hysterectomy Musculoskeletal History: Reports: Gout Neurological History: Reports: None Psychiatric History: Reports: Addiction, Anxiety, Depression Endocrine/Metabolic History: Reports: None, Osteopenia Hematologic History: Reports: Anemia, Iron Deficiency Immunologic History: Reports: None Oncologic (Cancer) History: Reports: Breast Dermatologic History: Reports: None Other Dermatologic History: OPEN AREAS TO BOTH LOWER LEGS FOR A YEAR OR MORE. 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 - Infectious Disease History Infectious Disease History: Reports: None - Past Surgical History Head Surgeries/Procedures: Reports: None Cardiovascular Surgical History: Reports: None Respiratory Surgical History: Reports: None GI Surgical History: Reports: Bariatric Procedure, Colonoscopy, EGD Female Surgical History: Reports: Section, Hysterectomy, Mastectomy , Salpingo-Oophorectomy Oncologic Surgical History: Reports: Mastectomy Social & Family History - Family History Family Medical History: Noncontributory Cardiac: Reports: Afib Hematologic: Reports: Other (See Below) Oncologic: Reports: Pancreatic - Tobacco Use Smoking Status *Q: Never Smoker Second Hand Smoke Exposure: No - Caffeine Use Caffeine Use: Reports: Soda Other Caffeine Use: 2 cans daily - Recreational Drug Use Recreational Drug Use: No - Living Situation & Occupation Living situation: Reports: , Alone Occupation: Employed ED ROS GENERAL - Review of Systems Review Of Systems: ROS reveals no pertinent complaints other than HPI. ED EXAM, BEHAVIORAL HEALTH - Physical Exam Exam: See Below Exam Limited By: No Limitations General Appearance: Alert, WD/WN, Anxious, Mild Distress, Moderate Distress, Other (tearfull) Eye Exam: Bilateral Eye: PERRL (pupils ER @ 4mm) Ears: Hearing Grossly Normal Throat/Mouth: Normal Voice, No Airway Compromise Head: Atraumatic Neck: Non-Tender, Full Range of Motion Respiratory/Chest: No Respiratory Distress Cardiovascular: Regular Rate, Rhythm GI/Abdominal: Soft, Non-Tender Neurological: Alert, Normal Cognition, No Motor/Sensory Deficits, Oriented x 3, Other (gait limited to intoxication) Psychiatric: Alert, Tearful, Agitated Skin Exam: Warm, Dry, Normal color COURSE, BEHAVIORAL HEALTH COMP - Course Vital Signs: Last Vital Signs Temp 36.6 C 12/20/18 03:29 Pulse 86 12/20/18 03:29 Resp 18 12/20/18 03:29 BP 139/74 12/20/18 03:29 Pulse Ox 100 12/20/18 03:29 Orders, Labs, Meds: Laboratory Tests 12/20/18 12/20/18 12/20/18 Range/Units 03:35 03:35 03:35 WBC 5.8 (5.0-10.0) 10^3/uL RBC 4.51 (4.2-5.4) 10^6/uL Hgb 14.6 (12.0-16.0) g/dL Hct 41.9 (37.0-47.0) % MCV 92.9 D (80-100) fL MCH 32.4 (27.0-34.0) pg MCHC 34.8 (33.0-35.0) g/dL Plt Count 86 L D (150-450) 10^3/uL Neut % (Auto) 62.3 (42.2-75.2) % Lymph % (Auto) 23.0 (20.5-50.1) % Ashe % (Auto) 14.3 H (2-8) % Eos % (Auto) 0.2 L (1.0-3.0) % Baso % (Auto) 0.2 (0.0-1.0) % PT 9.2 (9.0-12.0) SEC INR 0.9 (0.9-1.2) Sodium 136 (135-145) mmol/L Potassium 3.5 L (3.6-5.0) mmol/L Chloride 95 L (101-111) mmol/L Carbon Dioxide 15.0 L D (21.0-31.0) mmol/L Anion Gap 29.5 BUN 7 (7-18) mg/dL Creatinine 0.8 (0.6-1.3) mg/dL Est Cr Clr Drug Dosing 60.62 mL/min Estimated GFR (MDRD) > 60 BUN/Creatinine Ratio 8.75 Glucose 156 H (74-105) mg/dL Calcium 8.5 (8.4-10.2) mg/dl Total Bilirubin 2.6 H (0.2-1.0) mg/dL AST 211 H (10-42) IU/L ALT 124 H (10-60) IU/L Alkaline Phosphatase 96 (42-121) IU/L Total Protein 7.1 (6.7-8.2) g/dl Albumin 4.1 (3.2-5.5) g/dl Globulin 3.0 Albumin/Globulin Ratio 1.37 Amylase (28-100) U/L Lipase (22-51) U/L Ethyl Alcohol < 5 mg/dL 12/20/18 Range/Units 03:35 WBC (5.0-10.0) 10^3/uL RBC (4.2-5.4) 10^6/uL Hgb (12.0-16.0) g/dL Hct (37.0-47.0) % MCV (80-100) fL MCH (27.0-34.0) pg MCHC (33.0-35.0) g/dL Plt Count (150-450) 10^3/uL Neut % (Auto) (42.2-75.2) % Lymph % (Auto) (20.5-50.1) % Ashe % (Auto) (2-8) % Eos % (Auto) (1.0-3.0) % Baso % (Auto) (0.0-1.0) % PT (9.0-12.0) SEC INR (0.9-1.2) Sodium (135-145) mmol/L Potassium (3.6-5.0) mmol/L Chloride (101-111) mmol/L Carbon Dioxide (21.0-31.0) mmol/L Anion Gap BUN (7-18) mg/dL Creatinine (0.6-1.3) mg/dL Est Cr Clr Drug Dosing mL/min Estimated GFR (MDRD) BUN/Creatinine Ratio Glucose (74-105) mg/dL Calcium (8.4-10.2) mg/dl Total Bilirubin (0.2-1.0) mg/dL AST (10-42) IU/L ALT (10-60) IU/L Alkaline Phosphatase (42-121) IU/L Total Protein (6.7-8.2) g/dl Albumin (3.2-5.5) g/dl Globulin Albumin/Globulin Ratio Amylase 306 H (28-100) U/L Lipase > 400 H (22-51) U/L Ethyl Alcohol mg/dL Medications Discontinued Medications Generic Name Dose Route Start Last Admin Trade Name Freq PRN Reason Stop Dose Admin Multivitamins/Minerals 10 ml/ 1,011.2 mls @ 999 mls/hr 12/20/18 03:46 03:54 Folic Acid 1 mg/ Thiamine HCl IV 12/20/18 04:46 999 mls/hr 100 mg/ Lactated Ringer's ONETIME ONE Administration Lorazepam Confirm 12/20/18 04:54 12/20/18 04:59 Ativan Administered 12/20/18 04:55 Not Given Dose 1 mg .ROUTE .STK-MED ONE Ondansetron HCl 4 mg 12/20/18 03:39 12/20/18 03:46 Zofran IV 12/20/18 03:40 4 mg ONETIME ONE Administration Re-Assessment/Re-Exam: re-exam; pt sleeping soundly arousable no distress, results discussed. case discussed with Dr Mace who kindly admitted pt to observation Departure - Departure Time of Disposition: 04:54 Disposition: Home, Self-Care 01 Condition: Fair Clinical Impression: Alcohol abuse - Discharge Information Instructions: Alcohol Intoxication, [id number] Forms: ED Department Discharge Additional Instructions: 1) avoid alcohol 2) see clinic tomorrow for follow up meds for alcohol rx given; librium 25mg bid prn x 6
[2018-12-20 04:08] LABS: ANION GAP 29.5; CHLORIDE,CL 95 mmol/L (101-111); SODIUM,NA 136 mmol/L (135-145)
[2018-12-20] MEDS: LORazepam 1 MG Tab ONE ×2 (04:59→05:19)
[2018-12-20] MEDS ORDERED: LORazepam 2 MG/ML Syringe IVPUSH ONE (05:11)
[2018-12-20] MEDS ORDERED: Sodium Bicarbonate 650 MG Tab PO ONE (05:12)
[2018-12-20] MEDS ORDERED: Sodium Chloride 0.9% 1,000 ML IV ONE (05:12)
[2018-12-20] MEDS ORDERED: LORazepam 1 MG Tab PO ONE (07:25)
[2018-12-20] MEDS ORDERED: Bisacodyl 5 MG Tab PO PRN (07:41)
[2018-12-20] MEDS ORDERED: Polyethylene Glycol 3350 Powder 17 GM Packet PO PRN (07:41)
[2018-12-20] MEDS ORDERED: Ondansetron 4 MG/2 ML SDV IVPUSH PRN (07:41)
[2018-12-20] MEDS ORDERED: Docusate Sodium 100 MG Cap PO PRN (07:41)
[2018-12-20] MEDS ORDERED: Magnesium Hydroxide 400 MG/5 ML Susp 30 ML Cup PO PRN (07:41)
[2018-12-20] MEDS ORDERED: Ondansetron 4 MG Tab.DIS PO PRN (07:41)
[2018-12-20] MEDS ORDERED: Promethazine 25 MG Tab PO PRN (07:41)
[2018-12-20] MEDS: Acetaminophen 325 MG Tab PO PRN ×2 (08:04→16:20)
--- NOTE | 2018-12-20 08:04 | PCM.HP ---
H&P History of Present Illness - General Date of Service: 12/20/18 Admit Problem/Dx: Admission Diagnosis/Problem Admission Diagnosis/Problem Alcohol withdrawal syndrome Source of Information: Patient History Limitations: Reports: No Limitations, Other - History of Present Illness Initial Comments - Free Text/Narative: Quita Vyas is a 58 y.o female with medical history significant for depression, breast cancer, alcohol abuse s/p inpatient rehabilitations in the past, DVT on chronic anticoagulation with Eliquis, chronic venous insufficiency, and hiatal hernia who came to the ED with complaints of weakness and shakes. She reports that she went into a "funk" and was drinking about 18 beers daily for three days after 14 months of sobriety. She reports that her last drink was on Sunday. States she stayed in bed all day yesterday because she was too weak. She reports 6/10, sharp, constant mid-abdominal pain that radiates to the back. Started yesterday. She reports shakes, numbness of her hands and feet, and about 4 epidoses of diarrhea for the past three days. Last bowel movement was this morning. She reports drenching sweats and chills but did not check her temperature. She has nausea but no emesis. Also reports shortness of breath. She denies chest pain, melena, hematochezia, dysuria, hematuria, polyuria, edema , cough, or an any other symptoms. Headache Pain Score (Numeric/FACES): 7 - Related Data Allergies/Adverse Reactions: Allergies Allergy/AdvReac Type Severity Reaction Status Date / Time No Known Allergies Allergy Verified 10/08/18 08:24 Home Medications: Home Meds Pantoprazole Sodium 40 mg PO DAILY 06/09/14 [History] Apixaban [Eliquis] 5 mg PO DAILY 07/09/18 [History] Folic Acid 1 mg PO DAILY 07/09/18 [History] DULoxetine [Cymbalta] 30 mg PO DAILY 12/20/18 [History] Past Medical History HEENT History: Reports: Impaired Vision, Sinusitis Cardiovascular History: Reports: Blood Clots/VTE/DVT Respiratory History: Reports: PE Gastrointestinal History: Reports: PUD, Other (See Below) Other Gastrointestinal History: hx ulcers, gastric bypass Genitourinary History: Reports: None E LEARNING MANAGER History: Reports: Other (See Below) Other OB/BYN History: hysterectomy Musculoskeletal History: Reports: Gout Neurological History: Reports: None Psychiatric History: Reports: Addiction, Anxiety, Depression Endocrine/Metabolic History: Reports: None, Osteopenia Hematologic History: Reports: Anemia, Iron Deficiency Immunologic History: Reports: None Oncologic (Cancer) History: Reports: Breast Dermatologic History: Reports: None Other Dermatologic History: OPEN AREAS TO BOTH LOWER LEGS FOR A YEAR OR MORE. 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 - Infectious Disease History Infectious Disease History: Reports: Chicken Pox, Measles - Past Surgical History Head Surgeries/Procedures: Reports: None Other HEENT Surgeries/Procedures: EAGLE rigth ear Cardiovascular Surgical History: Reports: None Respiratory Surgical History: Reports: None GI Surgical History: Reports: Appendectomy, Bariatric Procedure, Colonoscopy, EGD Female Surgical History: Reports: Section, Hysterectomy, Mastectomy , Salpingo-Oophorectomy Oncologic Surgical History: Reports: Mastectomy Social & Family History - Family History Family Medical History: Noncontributory Cardiac: Reports: Afib Hematologic: Reports: Other (See Below) Oncologic: Reports: Pancreatic - Tobacco Use Smoking Status *Q: Never Smoker Second Hand Smoke Exposure: No - Caffeine Use Caffeine Use: Reports: Soda Other Caffeine Use: 2 cans daily - Alcohol Use Number of Drinks Per Day: 18 Date of Last Drink: 12/18/18 Time of Last Drink: 04:00 - Recreational Drug Use Recreational Drug Use: No - Living Situation & Occupation Living situation: Reports: , Alone Occupation: Employed H&P Review of Systems - Review of Systems: Review Of Systems: ROS reveals no pertinent complaints other than HPI. Exam - Exam Exam: See Below - Vital Signs Vital Signs: Last Vital Signs Temp 99.3 F 12/20/18 05:45 Pulse 150 H 12/20/18 05:45 Resp 20 12/20/18 05:45 BP 142/125 H 12/20/18 05:45 Pulse Ox 95 12/20/18 05:45 Weight: 153 lb 1.6 oz - Exam Physical Exam Comments:: General: Alert and oriented to place, time and person, appears anxious Head: atraumatic and normocephalic. Eyes: PERRLA, EOMI, anicteric, Ear, Nose and Throat: No gross abnormality found Neck: Supple Respiratory/Chest: CTAB, no wheezes, crackles, rales, or rhonci; Good air entry bilaterally. No increased work of breathing CVS: Tachycardic, RR, no murmur, rub, or gallop, peripheral pulses palpable. Gastrointestinal/Abd: Soft, non-distended, non-tender. Normal bowel sounds. Skin: No acute rashes noted, mottled skin Neuro: Grossly non-focal. No cranial nerve abnormality. Moves all extremities. tremulous Psych: Alert and oriented to place time and person. Depressed mood, flat affect , fair mood. Musculoskeletal: No abnormality noted. Ext: No edema, healed ulcer in medial right ankle and lateral left ankle, healing 2cm superficial scab below the right patella; no tenderness, no size differences, - Patient Data Lab Results Last 24 hrs: Laboratory Results - last 24 hr 12/20/18 12/20/18 12/20/18 Range/Units 03:35 03:35 03:35 WBC 5.8 (5.0-10.0) 10^3/uL RBC 4.51 (4.2-5.4) 10^6/uL Hgb 14.6 (12.0-16.0) g/dL Hct 41.9 (37.0-47.0) % MCV 92.9 D (80-100) fL MCH 32.4 (27.0-34.0) pg MCHC 34.8 (33.0-35.0) g/dL Plt Count 86 L D (150-450) 10^3/uL Neut % (Auto) 62.3 (42.2-75.2) % Lymph % (Auto) 23.0 (20.5-50.1) % Mora % (Auto) 14.3 H (2-8) % Eos % (Auto) 0.2 L (1.0-3.0) % Baso % (Auto) 0.2 (0.0-1.0) % PT 9.2 (9.0-12.0) SEC INR 0.9 (0.9-1.2) Sodium 136 (135-145) mmol/L Potassium 3.5 L (3.6-5.0) mmol/L Chloride 95 L (101-111) mmol/L Carbon Dioxide 15.0 L D (21.0-31.0) mmol/L Anion Gap 29.5 BUN 7 (7-18) mg/dL Creatinine 0.8 (0.6-1.3) mg/dL Est Cr Clr Drug Dosing 60.62 mL/min Estimated GFR (MDRD) > 60 BUN/Creatinine Ratio 8.75 Glucose 156 H (74-105) mg/dL Calcium 8.5 (8.4-10.2) mg/dl Total Bilirubin 2.6 H (0.2-1.0) mg/dL AST 211 H (10-42) IU/L ALT 124 H (10-60) IU/L Alkaline Phosphatase 96 (42-121) IU/L Total Protein 7.1 (6.7-8.2) g/dl Albumin 4.1 (3.2-5.5) g/dl Globulin 3.0 Albumin/Globulin Ratio 1.37 Amylase (28-100) U/L Lipase (22-51) U/L Ethyl Alcohol < 5 mg/dL 12/20/18 Range/Units 03:35 WBC (5.0-10.0) 10^3/uL RBC (4.2-5.4) 10^6/uL Hgb (12.0-16.0) g/dL Hct (37.0-47.0) % MCV (80-100) fL MCH (27.0-34.0) pg MCHC (33.0-35.0) g/dL Plt Count (150-450) 10^3/uL Neut % (Auto) (42.2-75.2) % Lymph % (Auto) (20.5-50.1) % Mora % (Auto) (2-8) % Eos % (Auto) (1.0-3.0) % Baso % (Auto) (0.0-1.0) % PT (9.0-12.0) SEC INR (0.9-1.2) Sodium (135-145) mmol/L Potassium (3.6-5.0) mmol/L Chloride (101-111) mmol/L Carbon Dioxide (21.0-31.0) mmol/L Anion Gap BUN (7-18) mg/dL Creatinine (0.6-1.3) mg/dL Est Cr Clr Drug Dosing mL/min Estimated GFR (MDRD) BUN/Creatinine Ratio Glucose (74-105) mg/dL Calcium (8.4-10.2) mg/dl Total Bilirubin (0.2-1.0) mg/dL AST (10-42) IU/L ALT (10-60) IU/L Alkaline Phosphatase (42-121) IU/L Total Protein (6.7-8.2) g/dl Albumin (3.2-5.5) g/dl Globulin Albumin/Globulin Ratio Amylase 306 H (28-100) U/L Lipase > 400 H (22-51) U/L Ethyl Alcohol mg/dL Result Diagrams: 12/20/18 03:35 12/20/18 12:45 - Problem List (1) Hypophosphatemia SNOMED Code(s): 2104804 ICD Code: E83.39 - OTHER DISORDERS OF PHOSPHORUS METABOLISM Status: Acute Current Visit: Yes (2) Hypomagnesemia SNOMED Code(s): 567486368 ICD Code: E83.42 - HYPOMAGNESEMIA Status: Acute Priority: Medium Current Visit: Yes (3) Alcoholic hepatitis SNOMED Code(s): 288848890 ICD Code: K70.10 - ALCOHOLIC HEPATITIS WITHOUT ASCITES Status: Acute Priority: High Current Visit: Yes Qualifiers: Ascites presence: without ascites Qualified Code(s): K70.10 - Alcoholic hepatitis without ascites (4) Acute pancreatitis SNOMED Code(s): 804152203 ICD Code: K85.90 - ACUTE PANCREATITIS WITHOUT NECROSIS OR INFECTION, UNSP Status: Acute Priority: High Current Visit: Yes (5) Thrombocytopenia SNOMED Code(s): 628791709 ICD Code: D69.6 - THROMBOCYTOPENIA, UNSPECIFIED Status: Acute Priority: Medium Current Visit: Yes (6) Alcohol abuse SNOMED Code(s): 48655035 ICD Code: F10.10 - ALCOHOL ABUSE, UNCOMPLICATED Status: Acute Current Visit: No (7) Alcohol withdrawal SNOMED Code(s): 004706465 ICD Code: F10.239 - ALCOHOL DEPENDENCE WITH WITHDRAWAL, UNSPECIFIED Status : Acute Priority: High Current Visit: No Qualifiers: Complication of substance-induced condition: with unspecified complication Qualified Code(s): F10.239 - Alcohol dependence with withdrawal, unspecified (8) Hypokalemia SNOMED Code(s): 68091373 ICD Code: E87.6 - HYPOKALEMIA Status: Acute Priority: Medium Current Visit: No Problem List Initiated/Reviewed/Updated: Yes Orders Last 24hrs: Active Orders 24 hr Category Date Time Status Patient Status [ADT] Routine ADT 12/20/18 07:41 Ordered Height and Weight [RC] UPON Care 12/20/18 07:41 Ordered Intake and Output [RC] QSHIFT Care 12/20/18 07:42 Ordered Oxygen Therapy [RC] PRN Care 12/20/18 07:41 Ordered Up With Assistance [RC] ASDIRECTED Care 12/20/18 07:41 Ordered VTE/DVT Education [RC] PER UNIT ROUTINE Care 12/20/18 07:41 Ordered Vital Signs [RC] Q4H Care 12/20/18 07:41 Ordered Regular Diet [DIET] Diet 12/20/18 Breakfast Ordered Acetaminophen [Tylenol] Med 12/20/18 07:41 Ordered 650 mg PO Q6H PRN Bisacodyl [Dulcolax] Med 12/20/18 07:41 Ordered 5 mg PO DAILY PRN Docusate Sodium [Colace] Med 12/20/18 07:41 Ordered 100 mg PO BID PRN Docusate Sodium/Sennosides [Senna Plus] Med 12/20/18 07:41 Ordered 1 tab PO BEDTIME PRN Magnesium Hydroxide [Milk of Magnesia] Med 12/20/18 07:41 Ordered 30 ml PO Q12H PRN Ondansetron [Zofran ODT] Med 12/20/18 07:41 Ordered 4 mg PO Q4H PRN Ondansetron [Zofran] Med 12/20/18 07:41 Ordered 4 mg IVPUSH Q4H PRN Polyethylene Glycol 3350 [MiraLAX] Med 12/20/18 07:41 Ordered 17 gm PO DAILY PRN Promethazine [Phenergan] Med 12/20/18 07:41 Ordered 25 mg PO Q6H PRN Resuscitation Status Routine Resus Stat 12/20/18 07:41 Ordered Medication Orders Acetaminophen (Tylenol) 650 mg PO Q6H PRN PRN Reason: Pain Bisacodyl (Dulcolax) 5 mg PO DAILY PRN PRN Reason: Constipation Docusate Sodium (Colace) 100 mg PO BID PRN PRN Reason: Constipation Magnesium Hydroxide (Milk Of Magnesia) 30 ml PO Q12H PRN PRN Reason: Constipation Ondansetron HCl (Zofran) 4 mg IVPUSH Q4H PRN PRN Reason: Nausea/Vomiting Ondansetron HCl (Zofran Odt) 4 mg PO Q4H PRN PRN Reason: nausea, able to take PO Polyethylene Glycol (Miralax) 17 gm PO DAILY PRN PRN Reason: Constipation Promethazine HCl (Phenergan) 25 mg PO Q6H PRN PRN Reason: nausea, able to take PO Senna/Docusate Sodium (Senna Plus) 1 tab PO BEDTIME PRN PRN Reason: Constipation Assessment/Plan Comment:: Acute pancreatitis: She reports 05/05, sharp, constant mid-abdominal pain that radiates to the back. Started yesterday. Lipase of 400 and amylase of 306. - Likely due to binge drinking. - Monitor CBC and renal function - IV fluids - Pain management with IV fentanyl or po oxycodone. - Anti-emetic protocol - Bowel regimen if opiates are initiated for pain # Alcohol abuse/Withdrawal: patient reports drinking 18 beers daily for three days prior to day of presentation. She has shakes, anxiety, and diaphoresis. - CIWA protocol with ativan - Thiamine and MVI. - Alcohol cessation counseling provided. # Hypokalemia + Hypomagnesemia + hypophosphatemia: concern for possible prolonged alcohol intake than patient reports. ?Refeeding syndrome. - Replete with IV and PO options. - Monitor electrolytes and replete as indicated. # Thrombocytopenia: Platelet of 86 on presentation. - SCD for DVT prophylaxis. - Patient is on Apixaban, I will restart and monitor platelet due to increased risk of bleeding with thrombocytopenia. - If platelet drops any further, will hold Apixaban. # Alcoholic hepatitis: AST almost 2x the ALT level. Normal Alk phos. - Monitor LFTs. - Alcohol cessation counseling provided. Code status: Full DVT PPx: Apixaban
[2018-12-20] MEDS: Lactated Ringers 1,000 ML IV SCH ×4 (08:27→22:42)
[2018-12-20] MEDS ORDERED: Nicotine 21 MG/24 Hr Patch TRDERM SCH (09:00)
[2018-12-20] MEDS ORDERED: Pantoprazole 40 MG Tab.CR PO SCH (12:45)
[2018-12-20 13:27] LABS: ANION GAP 14.4; CHLORIDE,CL 101 mmol/L (101-111); SODIUM,NA 137 mmol/L (135-145)
[2018-12-20] MEDS: Folic Acid 1 MG Tab PO SCH (13:30)
[2018-12-20] MEDS: DULoxetine 30 MG Cap PO SCH (13:30)
[2018-12-20] MEDS: Pantoprazole 40 MG Vial IVPUSH SCH (13:31)
[2018-12-20] MEDS ORDERED: Potassium Chloride 10 MEQ Tab.ER PO ONE (14:00)
[2018-12-20] MEDS: APIXABAN 5 MG PO SCH (14:12)
[2018-12-20] MEDS ORDERED: Magnesium Sulfate/Water 2 GM in Premix Bag 1 BAG IV ONE (15:00)
[2018-12-20] MEDS: Phosphorus #1 250 MG Tab PO SCH ×2 (15:01→21:04)
[2018-12-21] MEDS: Lactated Ringers 1,000 ML IV SCH ×2 (02:40→06:29)
[2018-12-21] MEDS: APIXABAN 5 MG PO SCH (09:51)
[2018-12-21] MEDS: DULoxetine 30 MG Cap PO SCH (09:51)
[2018-12-21] MEDS: Folic Acid 1 MG Tab PO SCH (09:51)
[2018-12-21] MEDS: Acetaminophen 325 MG Tab PO PRN ×2 (09:52→16:24)
[2018-12-21] MEDS: Pantoprazole 40 MG Vial IVPUSH SCH (09:52)
[2018-12-21 10:12] LABS: ANION GAP 13.1; CHLORIDE,CL 102 mmol/L (101-111); SODIUM,NA 135 mmol/L (135-145)
[2018-12-21] MEDS: Phosphorus #1 250 MG Tab PO SCH (10:23)
[2018-12-21] MEDS ORDERED: diphenhydrAMINE 25 MG Tab PO PRN (10:49)
[2018-12-21] MEDS ORDERED: Magnesium Sulfate/Water 2 GM in Premix Bag 1 BAG IV ONE (10:53)
[2018-12-21] MEDS ORDERED: Lactated Ringers 1,000 ML IV SCH (11:00)
[2018-12-21] MEDS ORDERED: [UNRECOGNIZED DRUG - OTHER] PO SCH (12:30)
--- NOTE | 2018-12-21 12:47 | PCM.PN ---
- General Info Date of Service: 12/21/18 Admission Dx/Problem (Free Text): Admission Diagnosis/Problem Admission Diagnosis/Problem Alcohol withdrawal syndrome Subjective Update: Today, patient reports feeling weak and that she fell to her knees while ambulating yesterday. Per nursing staff, she was a 2 person assist. She was weak so held onto her and she slowly went down on her knees. There was no head trauma. She reports that her weakness started about a weak ago. However, this afternoon, she reports that weakness started slowly about 2 weeks ago in her legs and has been progressively worsening. She reports tingling in her arms. Also reports headache. She reports her diarrhea has persisted since admission. - Patient Data Vitals - Most Recent: Last Vital Signs Temp 97.8 F 12/21/18 11:24 Pulse 78 12/21/18 11:24 Resp 20 12/21/18 11:24 BP 120/78 12/21/18 11:24 Pulse Ox 97 12/21/18 11:24 Weight - Most Recent: 153 lb 1.6 oz I&O - Last 24 Hours: Intake & Output 12/20/18 12/21/18 12/21/18 22:59 06:59 14:59 Intake Total 2876 1946 1200 Output Total 500 500 Balance 2376 1446 1200 Lab Results Last 24 Hours: Laboratory Results - last 24 hr 12/20/18 12/21/18 12/21/18 Range/Units 12:45 09:35 09:35 WBC 3.5 L (5.0-10.0) 10^3/uL RBC 3.86 L (4.2-5.4) 10^6/uL Hgb 12.4 D (12.0-16.0) g/dL Hct 35.8 L (37.0-47.0) % MCV 92.7 (80-100) fL MCH 32.1 (27.0-34.0) pg MCHC 34.6 (33.0-35.0) g/dL Plt Count 64 L (150-450) 10^3/uL Sodium 137 135 (135-145) mmol/L Potassium 3.4 L 3.1 L (3.6-5.0) mmol/L Chloride 101 102 (101-111) mmol/L Carbon Dioxide 25.0 D 23.0 (21.0-31.0) mmol/L Anion Gap 14.4 13.1 BUN 6 L 3 L (7-18) mg/dL Creatinine 0.5 L 0.5 L (0.6-1.3) mg/dL Est Cr Clr Drug Dosing 97.00 97.00 mL/min Estimated GFR (MDRD) > 60 > 60 BUN/Creatinine Ratio 6.00 Glucose 95 106 H (74-105) mg/dL Calcium 8.1 L 8.2 L (8.4-10.2) mg/dl Phosphorus 1.7 L 1.9 L (2.5-4.6) mg/dL Magnesium 1.6 L 1.5 L (1.8-2.5) mg/dL Total Bilirubin 1.5 H (0.2-1.0) mg/dL AST 106 H (10-42) IU/L ALT 77 H (10-60) IU/L Alkaline Phosphatase 71 (42-121) IU/L Total Protein 5.5 L (6.7-8.2) g/dl Albumin 3.2 (3.2-5.5) g/dl Globulin 2.3 Albumin/Globulin Ratio 1.39 Med Orders - Current: Current Medications Acetaminophen (Tylenol) 650 mg PO Q6H PRN PRN Reason: Pain Last Admin: 12/21/18 09:52 Dose: 650 mg Bisacodyl (Dulcolax) 5 mg PO DAILY PRN PRN Reason: Constipation Diphenhydramine HCl (Benadryl) 25 mg PO BEDTIME PRN PRN Reason: Sleep Docusate Sodium (Colace) 100 mg PO BID PRN PRN Reason: Constipation Duloxetine HCl (Cymbalta) 30 mg PO DAILY [facility] Last Admin: 12/21/18 09:51 Dose: 30 mg Folic Acid (Folic Acid) 1 mg PO DAILY [facility] Last Admin: 12/21/18 09:51 Dose: 1 mg Lactated Ringer's (Ringers, Lactated) 1,000 mls @ 125 mls/hr IV ASDIRECTED [facility] Last Admin: 12/21/18 11:07 Dose: 125 mls/hr Magnesium Sulfate 2 gm/ Premix 50 mls @ 25 mls/hr IV ONETIME ONE Stop: 12/21/18 12:52 Last Admin: 12/21/18 12:33 Dose: 25 mls/hr Magnesium Hydroxide (Milk Of Magnesia) 30 ml PO Q12H PRN PRN Reason: Constipation Melatonin (Melatonin) 9 mg PO BEDTIME ONE Stop: 12/21/18 21:01 Apixaban [Eliquis] 5 (Mg) 0 mg PO DAILY [facility] Last Admin: 12/21/18 09:51 Dose: 5 mg Diosmiplex [ Vasculera] 630mg Tab Own Med 630 mg PO DAILY [facility] Last Admin: 12/21/18 12:30 Dose: 630 mg Ondansetron HCl (Zofran) 4 mg IVPUSH Q4H PRN PRN Reason: Nausea/Vomiting Ondansetron HCl (Zofran Odt) 4 mg PO Q4H PRN PRN Reason: nausea, able to take PO Pantoprazole Sodium (Protonix Iv) 40 mg IVPUSH DAILY [facility] Last Admin: 12/21/18 09:52 Dose: 40 mg Polyethylene Glycol (Miralax) 17 gm PO DAILY PRN PRN Reason: Constipation Potassium Chloride (Klor-Con 10) 40 meq PO BIDMEALS [facility] Promethazine HCl (Phenergan) 25 mg PO Q6H PRN PRN Reason: nausea, able to take PO Senna/Docusate Sodium (Senna Plus) 1 tab PO BEDTIME PRN PRN Reason: Constipation Sodium Phosphate (Neutra-Phos) 500 mg PO BID [facility] Stop: 12/21/18 21:01 Last Admin: 12/21/18 10:23 Dose: 500 mg Discontinued Medications Multivitamins/Minerals 10 ml/Folic Acid 1 mg/ Thiamine HCl 100 mg/ Lactated Ringer's 1,011.2 mls @ 999 mls/hr IV ONETIME ONE Stop: 12/20/18 04:46 Last Admin: 12/20/18 03:54 Dose: 999 mls/hr Sodium Chloride (Normal Saline) 1,000 mls @ 999 mls/hr IV .BOLUS ONE Stop: 12/20/18 06:12 Last Infusion: 12/20/18 06:27 Dose: Infused Lactated Ringer's (Ringers, Lactated) 1,000 mls @ 250 mls/hr IV ASDIRECTED [facility] Last Infusion: 12/21/18 11:05 Dose: Infused Magnesium Sulfate 2 gm/ Premix 50 mls @ 25 mls/hr IV ONETIME ONE Stop: 12/20/18 16:59 Last Infusion: 12/20/18 17:16 Dose: Infused Lorazepam (Ativan) Confirm Administered Dose 1 mg .ROUTE .STK-MED ONE Stop: 12/20/18 04:55 Last Admin: 12/20/18 05:19 Dose: Not Given Lorazepam (Ativan) 2 mg IVPUSH ONETIME ONE Stop: 12/20/18 05:12 Last Admin: 12/20/18 05:20 Dose: 2 mg Lorazepam (Ativan) 1 mg PO ONETIME ONE Stop: 12/20/18 07:26 Last Admin: 12/20/18 08:04 Dose: 1 mg Nicotine (Habitrol) 21 mg TRDERM DAILY [facility] Ondansetron HCl (Zofran) 4 mg IV ONETIME ONE Stop: 12/20/18 03:40 Last Admin: 12/20/18 03:46 Dose: 4 mg Pantoprazole Sodium (Protonix) 40 mg PO DAILY [facility] Last Admin: 12/20/18 13:05 Dose: Not Given Potassium Chloride (Klor-Con 10) 40 meq PO ONETIME ONE Stop: 12/20/18 14:01 Last Admin: 12/20/18 13:30 Dose: 40 meq Sodium Bicarbonate (Sodium Bicarbonate) 650 mg PO ONETIME ONE Stop: 12/20/18 05:13 Last Admin: 12/20/18 05:20 Dose: 650 mg - Problem List & Annotations (1) Hypophosphatemia SNOMED Code(s): 4849768 Code(s): E83.39 - OTHER DISORDERS OF PHOSPHORUS METABOLISM Status: Acute Priority: Medium Current Visit: Yes (2) Hypomagnesemia SNOMED Code(s): 495754507 Code(s): E83.42 - HYPOMAGNESEMIA Status: Acute Priority: Medium Current Visit: Yes (3) Alcoholic hepatitis SNOMED Code(s): 161089667 Code(s): K70.10 - ALCOHOLIC HEPATITIS WITHOUT ASCITES Status: Acute Priority: High Current Visit: Yes Qualifiers: Ascites presence: without ascites Qualified Code(s): K70.10 - Alcoholic hepatitis without ascites (4) Acute pancreatitis SNOMED Code(s): 693644782 Code(s): K85.90 - ACUTE PANCREATITIS WITHOUT NECROSIS OR INFECTION, UNSP Status: Acute Priority: High Current Visit: Yes (5) Thrombocytopenia SNOMED Code(s): 621539289 Code(s): D69.6 - THROMBOCYTOPENIA, UNSPECIFIED Status: Acute Priority: Medium Current Visit: Yes (6) Alcohol abuse SNOMED Code(s): 21169039 Code(s): F10.10 - ALCOHOL ABUSE, UNCOMPLICATED Status: Acute Current Visit: No (7) Alcohol withdrawal SNOMED Code(s): 000771118 Code(s): F10.239 - ALCOHOL DEPENDENCE WITH WITHDRAWAL, UNSPECIFIED Status: Acute Priority: High Current Visit: No Qualifiers: Complication of substance-induced condition: with unspecified complication Qualified Code(s): F10.239 - Alcohol dependence with withdrawal, unspecified (8) Hypokalemia SNOMED Code(s): 25092002 Code(s): E87.6 - HYPOKALEMIA Status: Acute Priority: Medium Current Visit: No - My Orders Last 24 Hours: My Active Orders 12/20/18 13:02 Patient Status [ADT] Routine 12/20/18 14:00 Apixaban [Eliquis] 0 mg PO DAILY DULoxetine [Cymbalta] 30 mg PO DAILY Folic Acid 1 mg PO DAILY Pantoprazole [ProTONIX IV] 40 mg IVPUSH DAILY 12/20/18 15:00 Phosphorus #1 [Neutra-Phos] 500 mg PO BID 12/21/18 10:13 C DIFFICILE TOXIN BY PCR [MREF] Urgent OVA & PARASITES BY IMMUNOASSAY [MREF] Routine STOOL CULTURE/SHIGA TOXIN [MREF] Routine 12/21/18 10:49 diphenhydrAMINE [Benadryl] 25 mg PO BEDTIME PRN 12/21/18 10:53 Magnesium Sulfate/Water [Magnesium Sulfate 2 GM in Water 50 ML] 2 gm Premix Bag 1 bag IV ONETIME 12/21/18 11:00 Lactated Ringers [Ringers, Lactated] 1,000 ml IV ASDIRECTED 12/21/18 12:30 Diosmin Complex No.1 [Vasculera] 630 mg PO DAILY 12/21/18 12:34 Ready for Discharge [RC] PER UNIT ROUTINE 12/21/18 18:00 Potassium Chloride [Klor-Con 10] 40 meq PO BIDMEALS 12/21/18 21:00 Melatonin 9 mg PO BEDTIME ONE 12/21/18 Lunch Clear Liquid Diet [DIET] - Plan Plan:: Acute pancreatitis: She reports 05/05, sharp, constant mid-abdominal pain that radiates to the back. Started yesterday. Lipase of 400 and amylase of 306. - Likely due to binge drinking. - Monitor CBC and renal function - IV fluids - Pain management with IV fentanyl or po oxycodone. - Anti-emetic protocol - Bowel regimen if opiates are initiated for pain # Alcohol abuse/Withdrawal: patient reports drinking 18 beers daily for three days prior to day of presentation. She has shakes, anxiety, and diaphoresis. - CIWA protocol with ativan - Thiamine and MVI. - Alcohol cessation counseling provided. # Hypokalemia + Hypomagnesemia + hypophosphatemia: concern for possible prolonged alcohol intake than patient reports. ?Refeeding syndrome. - Replete with IV and PO options. - Monitor electrolytes and replete as indicated. # Thrombocytopenia: Platelet of 86 on presentation. - SCD for DVT prophylaxis. - Patient is on Apixaban, I will restart and monitor platelet due to increased risk of bleeding with thrombocytopenia. - If platelet drops any further, will hold Apixaban. # Alcoholic hepatitis: AST almost 2x the ALT level. Normal Alk phos. - Monitor LFTs. - Alcohol cessation counseling provided. Code status: Full DVT PPx: Apixaban
--- NOTE | 2018-12-21 12:55 | PCM.DCSUM1 ---
Discharge Summary - Hospital Course Free Text/Narrative:: Patient presented with complaints of abdominal pain that started after three days of binge drinking. Had been drinking 18 beers daily for three days. She reported 14 months of sobriety prior to that. She was started on CIWA protocol. She was noted to have lipase of 400 (ULN is 51). She was started on IVF. Meza not required any opiates. Today, patient reports feeling weak and that she fell to her knees while ambulating yesterday. Per nursing staff, she was a 2 person assist. She was weak so held onto her and she slowly went down on her knees. There was no head trauma. She reports that her weakness started about a weak ago. However, this afternoon, she reports that weakness started slowly about 2 weeks ago in her legs and has been progressively worsening. She reports tingling in her arms. Also reports headache. She reports her diarrhea has persisted since admission. C diff ordered but this is a send out lab and so should be re-ordered if patient is still having diarrhea. Her magnesium, phos, and potassium were low on presentation and these have been replaced with both IV and PO options available here. Her platelets dropped from 87 on presentation to 64 today, but likely hemodilutional. She has lost multiple family members within the past few months. Suspect her profound weakness may be due to conversion disorder and or a psychiatric component with nutritional deficits. GBS is on the differential but low suspicion. She is being transferred for higher level of care. HPI Initial Comments: Quita Vyas is a 58 y.o female with medical history significant for depression, breast cancer, alcohol abuse s/p inpatient rehabilitations in the past, DVT on chronic anticoagulation with Eliquis, chronic venous insufficiency, and hiatal hernia who came to the ED with complaints of weakness and shakes. She reports that she went into a "funk" and was drinking about 18 beers daily for three days after 14 months of sobriety. She reports that her last drink was on Sunday. States she stayed in bed all day yesterday because she was too weak. She reports 6/10, sharp, constant mid-abdominal pain that radiates to the back. Started yesterday. She reports shakes, numbness of her hands and feet, and about 4 episodes of diarrhea daily for the past three days. Last bowel movement was this morning. She reports drenching sweats and chills but did not check her temperature. She has nausea but no emesis. Also reports shortness of breath. She denies chest pain, melena, hematochezia, dysuria, hematuria, polyuria, edema , cough, or an any other symptoms. Diagnosis: Stroke: No - Discharge Data Discharge Date: 12/21/18 Discharge Disposition: DC/Tfer to Acute Hospital 02 Condition: Fair - Discharge Diagnosis/Problem(s) (1) Hypophosphatemia SNOMED Code(s): 2792501 ICD Code: E83.39 - OTHER DISORDERS OF PHOSPHORUS METABOLISM Status: Acute Priority: Medium Current Visit: Yes (2) Hypomagnesemia SNOMED Code(s): 297933042 ICD Code: E83.42 - HYPOMAGNESEMIA Status: Acute Priority: Medium Current Visit: Yes (3) Alcoholic hepatitis SNOMED Code(s): 950486026 ICD Code: K70.10 - ALCOHOLIC HEPATITIS WITHOUT ASCITES Status: Acute Priority: High Current Visit: Yes Qualifiers: Ascites presence: without ascites Qualified Code(s): K70.10 - Alcoholic hepatitis without ascites (4) Acute pancreatitis SNOMED Code(s): 204795024 ICD Code: K85.90 - ACUTE PANCREATITIS WITHOUT NECROSIS OR INFECTION, UNSP Status: Acute Priority: High Current Visit: Yes (5) Thrombocytopenia SNOMED Code(s): 714753743 ICD Code: D69.6 - THROMBOCYTOPENIA, UNSPECIFIED Status: Acute Priority: Medium Current Visit: Yes (6) Alcohol abuse SNOMED Code(s): 93695460 ICD Code: F10.10 - ALCOHOL ABUSE, UNCOMPLICATED Status: Acute Current Visit: No (7) Alcohol withdrawal SNOMED Code(s): 363637171 ICD Code: F10.239 - ALCOHOL DEPENDENCE WITH WITHDRAWAL, UNSPECIFIED Status : Acute Priority: High Current Visit: No Qualifiers: Complication of substance-induced condition: with unspecified complication Qualified Code(s): F10.239 - Alcohol dependence with withdrawal, unspecified (8) Hypokalemia SNOMED Code(s): 67302881 ICD Code: E87.6 - HYPOKALEMIA Status: Acute Priority: Medium Current Visit: No - Patient Instructions Diet: Clear Liquid Diet Activity: Non Weight Bearing Driving: Do Not Drive - Discharge Plan Home Medications: Home Meds Pantoprazole Sodium 40 mg PO DAILY 06/09/14 [History] Apixaban [Eliquis] 5 mg PO DAILY 07/09/18 [History] Folic Acid 1 mg PO DAILY 07/09/18 [History] DULoxetine [Cymbalta] 30 mg PO DAILY 12/20/18 [History] Diosmin Complex No.1 [Vasculera] 630 mg PO DAILY 12/20/18 [History] Oxygen Therapy Mode: Room Air Patient Handouts: Alcohol Intoxication, [id number] Referrals: PCP,None [Primary Care Provider] - - Discharge Summary/Plan Comment DC Time >30 min.: Yes - General Info Date of Service: 12/21/18 Admission Dx/Problem (Free Text: Admission Diagnosis/Problem Admission Diagnosis/Problem Alcohol withdrawal syndrome Subjective Update: bob, patient reports feeling weak and that she fell to her knees while ambulating yesterday. Per nursing staff, she was a 2 person assist. She was weak so held onto her and she slowly went down on her knees. There was no head trauma. She reports that her weakness started about a weak ago. However, this afternoon, she reports that weakness started slowly about 2 weeks ago in her legs and has been progressively worsening. She reports tingling in her arms. Also reports headache. She reports her diarrhea has persisted since admission. - Review of Systems General: Reports: Weakness HEENT: Reports: No Symptoms Pulmonary: Reports: No Symptoms Cardiovascular: Reports: No Symptoms Gastrointestinal: Reports: Abdominal Pain, Diarrhea Musculoskeletal: Reports: No Symptoms Skin: Reports: No Symptoms Neurological: Reports: Paresthesia Psychiatric: Reports: Anxiety - Patient Data Vitals - Most Recent: Last Vital Signs Temp 97.8 F 12/21/18 11:24 Pulse 78 12/21/18 11:24 Resp 20 12/21/18 11:24 BP 120/78 12/21/18 11:24 Pulse Ox 97 12/21/18 11:24 Weight - Most Recent: 153 lb 1.6 oz I&O - Last 24 hours: Intake & Output 12/20/18 12/21/18 12/21/18 22:59 06:59 14:59 Intake Total 2876 1946 1200 Output Total 500 500 Balance 2376 1446 1200 Lab Results - Last 24 hrs: Laboratory Results - last 24 hr 12/20/18 12/21/18 12/21/18 Range/Units 12:45 09:35 09:35 WBC 3.5 L (5.0-10.0) 10^3/uL RBC 3.86 L (4.2-5.4) 10^6/uL Hgb 12.4 D (12.0-16.0) g/dL Hct 35.8 L (37.0-47.0) % MCV 92.7 (80-100) fL MCH 32.1 (27.0-34.0) pg MCHC 34.6 (33.0-35.0) g/dL Plt Count 64 L (150-450) 10^3/uL Sodium 137 135 (135-145) mmol/L Potassium 3.4 L 3.1 L (3.6-5.0) mmol/L Chloride 101 102 (101-111) mmol/L Carbon Dioxide 25.0 D 23.0 (21.0-31.0) mmol/L Anion Gap 14.4 13.1 BUN 6 L 3 L (7-18) mg/dL Creatinine 0.5 L 0.5 L (0.6-1.3) mg/dL Est Cr Clr Drug Dosing 97.00 97.00 mL/min Estimated GFR (MDRD) > 60 > 60 BUN/Creatinine Ratio 6.00 Glucose 95 106 H (74-105) mg/dL Calcium 8.1 L 8.2 L (8.4-10.2) mg/dl Phosphorus 1.7 L 1.9 L (2.5-4.6) mg/dL Magnesium 1.6 L 1.5 L (1.8-2.5) mg/dL Total Bilirubin 1.5 H (0.2-1.0) mg/dL AST 106 H (10-42) IU/L ALT 77 H (10-60) IU/L Alkaline Phosphatase 71 (42-121) IU/L Total Protein 5.5 L (6.7-8.2) g/dl Albumin 3.2 (3.2-5.5) g/dl Globulin 2.3 Albumin/Globulin Ratio 1.39 Med Orders - Current: Current Medications Acetaminophen (Tylenol) 650 mg PO Q6H PRN PRN Reason: Pain Last Admin: 12/21/18 09:52 Dose: 650 mg Bisacodyl (Dulcolax) 5 mg PO DAILY PRN PRN Reason: Constipation Diphenhydramine HCl (Benadryl) 25 mg PO BEDTIME PRN PRN Reason: Sleep Docusate Sodium (Colace) 100 mg PO BID PRN PRN Reason: Constipation Duloxetine HCl (Cymbalta) 30 mg PO DAILY [facility] Last Admin: 12/21/18 09:51 Dose: 30 mg Folic Acid (Folic Acid) 1 mg PO DAILY [facility] Last Admin: 12/21/18 09:51 Dose: 1 mg Lactated Ringer's (Ringers, Lactated) 1,000 mls @ 125 mls/hr IV ASDIRECTED [facility] Last Admin: 12/21/18 11:07 Dose: 125 mls/hr Magnesium Sulfate 2 gm/ Premix 50 mls @ 25 mls/hr IV ONETIME ONE Stop: 12/21/18 12:52 Last Admin: 12/21/18 12:33 Dose: 25 mls/hr Magnesium Hydroxide (Milk Of Magnesia) 30 ml PO Q12H PRN PRN Reason: Constipation Melatonin (Melatonin) 9 mg PO BEDTIME ONE Stop: 12/21/18 21:01 Apixaban [Eliquis] 5 (Mg) 0 mg PO DAILY [facility] Last Admin: 12/21/18 09:51 Dose: 5 mg Diosmiplex [ Vasculera] 630mg Tab Own Med 630 mg PO DAILY [facility] Last Admin: 12/21/18 12:30 Dose: 630 mg Ondansetron HCl (Zofran) 4 mg IVPUSH Q4H PRN PRN Reason: Nausea/Vomiting Ondansetron HCl (Zofran Odt) 4 mg PO Q4H PRN PRN Reason: nausea, able to take PO Pantoprazole Sodium (Protonix Iv) 40 mg IVPUSH DAILY [facility] Last Admin: 12/21/18 09:52 Dose: 40 mg Polyethylene Glycol (Miralax) 17 gm PO DAILY PRN PRN Reason: Constipation Potassium Chloride (Klor-Con 10) 40 meq PO BIDMEALS [facility] Promethazine HCl (Phenergan) 25 mg PO Q6H PRN PRN Reason: nausea, able to take PO Senna/Docusate Sodium (Senna Plus) 1 tab PO BEDTIME PRN PRN Reason: Constipation Sodium Phosphate (Neutra-Phos) 500 mg PO BID [facility] Stop: 12/21/18 21:01 Last Admin: 12/21/18 10:23 Dose: 500 mg Discontinued Medications Multivitamins/Minerals 10 ml/Folic Acid 1 mg/ Thiamine HCl 100 mg/ Lactated Ringer's 1,011.2 mls @ 999 mls/hr IV ONETIME ONE Stop: 12/20/18 04:46 Last Admin: 12/20/18 03:54 Dose: 999 mls/hr Sodium Chloride (Normal Saline) 1,000 mls @ 999 mls/hr IV .BOLUS ONE Stop: 12/20/18 06:12 Last Infusion: 12/20/18 06:27 Dose: Infused Lactated Ringer's (Ringers, Lactated) 1,000 mls @ 250 mls/hr IV ASDIRECTED [facility] Last Infusion: 12/21/18 11:05 Dose: Infused Magnesium Sulfate 2 gm/ Premix 50 mls @ 25 mls/hr IV ONETIME ONE Stop: 12/20/18 16:59 Last Infusion: 12/20/18 17:16 Dose: Infused Lorazepam (Ativan) Confirm Administered Dose 1 mg .ROUTE .STK-MED ONE Stop: 12/20/18 04:55 Last Admin: 12/20/18 05:19 Dose: Not Given Lorazepam (Ativan) 2 mg IVPUSH ONETIME ONE Stop: 12/20/18 05:12 Last Admin: 12/20/18 05:20 Dose: 2 mg Lorazepam (Ativan) 1 mg PO ONETIME ONE Stop: 12/20/18 07:26 Last Admin: 12/20/18 08:04 Dose: 1 mg Nicotine (Habitrol) 21 mg TRDERM DAILY [facility] Ondansetron HCl (Zofran) 4 mg IV ONETIME ONE Stop: 12/20/18 03:40 Last Admin: 12/20/18 03:46 Dose: 4 mg Pantoprazole Sodium (Protonix) 40 mg PO DAILY [facility] Last Admin: 12/20/18 13:05 Dose: Not Given Potassium Chloride (Klor-Con 10) 40 meq PO ONETIME ONE Stop: 12/20/18 14:01 Last Admin: 12/20/18 13:30 Dose: 40 meq Sodium Bicarbonate (Sodium Bicarbonate) 650 mg PO ONETIME ONE Stop: 12/20/18 05:13 Last Admin: 12/20/18 05:20 Dose: 650 mg - Exam General: Reports: Alert, Oriented HEENT: Reports: Pupils Equal, Mucous Membr. Moist/[place] Neck: Reports: Supple Lungs: Reports: Clear to Auscultation, Normal Respiratory Effort Cardiovascular: Reports: Regular Rate, Regular Rhythm GI/Abdominal Exam: Normal Bowel Sounds, Soft, No Distention, Tender Extremities: Normal Inspection, Non-Tender, No Pedal Edema Skin: Reports: Warm, Dry, Intact Neurological: Reports: No New Focal Deficit, Other (Gait exam deferred because patient reports she is scared she will fall. ) Psy/Mental Status: Reports: Alert, Normal Affect, Anxious
[2018-12-21 17:03] VITALS: BP 121/67
[2018-12-21] MEDS ORDERED: Potassium Chloride 10 MEQ Tab.ER PO SCH (18:00)
[2018-12-21] MEDS ORDERED: Melatonin 3 MG Tab PO ONE (21:00)
== END 2018-12-21 17:10 | DRG 896 ==
LOC: DL.ED 03:26 → UNDOADMOB 05:30 → DL.MS 05:30 → OBSVTOIN 13:02
PROVIDERS: ADMIT Internal Medicine; ATTEND Internal Medicine
DX: F10.239 Alcohol dependence with withdrawal, unspecified (principal); K85.20 Alcohol induced acute pancreatitis without necrosis or infection; F32.9 Major depressive disorder, single episode, unspecified; I87.2 Venous insufficiency (chronic) (peripheral); K44.9 Diaphragmatic hernia without obstruction or gangrene; H54.7 Unspecified visual loss; E83.39 Other disorders of phosphorus metabolism; K70.10 Alcoholic hepatitis without ascites; M10.9 Gout, unspecified; F41.9 Anxiety disorder, unspecified; F44.9 Dissociative and conversion disorder, unspecified; E87.6 Hypokalemia; D69.6 Thrombocytopenia, unspecified; E83.42 Hypomagnesemia; R51 Headache; M85.80 Other specified disorders of bone density and structure, unspecified site; D64.9 Anemia, unspecified; H91.91 Unspecified hearing loss, right ear; Z85.3 Personal history of malignant neoplasm of breast; Z86.718 Personal history of other venous thrombosis and embolism; Z79.01 Long term (current) use of anticoagulants; Z79.899 Other long term (current) drug therapy; Z86.711 Personal history of pulmonary embolism; Z98.84 Bariatric surgery status
CPT/HCPCS: 36415; 80048; 80053; 82150; 83690; 83735; 84100; 85025; 85027; 85610; 96365; 96375; 99285; A9270-GY; C9113; G0480; J2060; J2405; J3411; J3475; J3490; J7030; J7120

== ENCOUNTER 2019-05-10 18:45 | Emergency (ER) | payer MEDICAID ==
[2019-05-10] MEDS ORDERED: Ondansetron 4 MG/2 ML SDV IV ONE (18:50)
[2019-05-10] MEDS ORDERED: MVI, Adult with Vitamin K 10 ML, Folic Acid 1 MG, Thiamine 100 MG in Lactated Ringers 1... IV ONE ×4 (18:50)
--- NOTE | 2019-05-10 18:55 | EDM.PDOC ---
ED HPI GENERAL MEDICAL PROBLEM - General Chief Complaint: General Stated Complaint: UNKNOWN Time Seen by Provider: 05/10/19 18:51 Source of Information: Reports: Patient History Limitations: Reports: No Limitations - History of Present Illness INITIAL COMMENTS - FREE TEXT/NARRATIVE: states been drinking past 3 days, hadn't done this since last november. nausea no V/D some epig discomfort. Headache Pain Score (Numeric/FACES): 4 - Related Data Allergies Allergy/AdvReac Type Severity Reaction Status Date / Time No Known Allergies Allergy Verified 05/10/19 18:54 Home Meds: Home Meds Pantoprazole Sodium 40 mg PO DAILY 06/09/14 [History] Apixaban [Eliquis] 5 mg PO DAILY 07/09/18 [History] Folic Acid 1 mg PO DAILY 07/09/18 [History] DULoxetine [Cymbalta] 30 mg PO DAILY 12/20/18 [History] Diosmin Complex No.1 [Vasculera] 630 mg PO DAILY 12/20/18 [History] Past Medical History HEENT History: Reports: Impaired Vision, Sinusitis Cardiovascular History: Reports: Blood Clots/VTE/DVT Respiratory History: Reports: PE Gastrointestinal History: Reports: PUD, Other (See Below) Other Gastrointestinal History: hx ulcers, gastric bypass Genitourinary History: Reports: None TOBACCO HANGER History: Reports: Other (See Below) Other TOBACCO HANGER History: hysterectomy Musculoskeletal History: Reports: Gout Neurological History: Reports: None Psychiatric History: Reports: Addiction, Anxiety, Depression Endocrine/Metabolic History: Reports: None, Osteopenia Hematologic History: Reports: Anemia, Iron Deficiency Immunologic History: Reports: None Oncologic (Cancer) History: Reports: Breast Dermatologic History: Reports: None Other Dermatologic History: OPEN AREAS TO BOTH LOWER LEGS FOR A YEAR OR MORE. 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 - Infectious Disease History Infectious Disease History: Reports: None - Past Surgical History Head Surgeries/Procedures: Reports: None Cardiovascular Surgical History: Reports: None Respiratory Surgical History: Reports: None GI Surgical History: Reports: Bariatric Procedure, Colonoscopy, EGD Female Surgical History: Reports: Section, Hysterectomy, Mastectomy , Salpingo-Oophorectomy Oncologic Surgical History: Reports: Mastectomy Social & Family History - Family History Family Medical History: Noncontributory Cardiac: Reports: Afib Hematologic: Reports: Other (See Below) Oncologic: Reports: Pancreatic - Caffeine Use Caffeine Use: Reports: Soda Other Caffeine Use: 2 cans daily - Living Situation & Occupation Living situation: Reports: , Alone Occupation: Employed ED ROS GENERAL - Review of Systems Review Of Systems: ROS reveals no pertinent complaints other than HPI. ED EXAM, GENERAL - Physical Exam Exam: See Below Exam Limited By: No Limitations General Appearance: Alert, WD/WN, Mild Distress, Other (distraught) Eye Exam: Bilateral Eye: PERRL (pupils ER @ 4mm) Ears: Hearing Grossly Normal Throat/Mouth: Normal Voice, No Airway Compromise Head: Atraumatic Neck: Non-Tender, Full Range of Motion Respiratory/Chest: No Respiratory Distress Cardiovascular: Regular Rate, Rhythm GI/Abdominal: Soft, Tender, Other (epiG discomfort). No: Distended, Guarding, Rigid, Rebound Neurological: Alert, Oriented, Normal Cognition, Normal Gait, No Motor/Sensory Deficits Psychiatric: Tearful Skin Exam: Warm, Dry, Normal Color Lymphatic: No Adenopathy Course - Vital Signs Last Recorded V/S: Last Vital Signs Temp 37.0 C 05/10/19 21:28 Pulse 78 05/10/19 21:28 Resp 16 05/10/19 21:28 BP 124/68 05/10/19 21:28 Pulse Ox 98 05/10/19 21:28 - Orders/Labs/Meds Labs: Laboratory Tests 05/10/19 05/10/19 Range/Units 18:55 18:55 WBC 5.5 (5.0-10.0) 10^3/uL RBC 4.90 (4.2-5.4) 10^6/uL Hgb 14.5 D (12.0-16.0) g/dL Hct 41.8 (37.0-47.0) % MCV 85.3 D (80-100) fL MCH 29.6 (27.0-34.0) pg MCHC 34.7 (33.0-35.0) g/dL Plt Count 90 L (150-450) 10^3/uL Neut % (Auto) 82.9 H (42.2-75.2) % Lymph % (Auto) 10.2 L (20.5-50.1) % [place] % (Auto) 6.2 (2-8) % Eos % (Auto) 0.2 L (1.0-3.0) % Baso % (Auto) 0.5 (0.0-1.0) % Sodium 137 (135-145) mmol/L Potassium 3.7 (3.6-5.0) mmol/L Chloride 104 (101-111) mmol/L Carbon Dioxide 21.0 (21.0-31.0) mmol/L Anion Gap 15.7 BUN 8 (7-18) mg/dL Creatinine 0.5 L (0.6-1.3) mg/dL Est Cr Clr Drug Dosing 95.82 mL/min Estimated GFR (MDRD) > 60 BUN/Creatinine Ratio 16.00 Glucose 131 H (74-105) mg/dL Calcium 7.9 L (8.4-10.2) mg/dl Total Bilirubin 2.9 H (0.2-1.0) mg/dL AST 98 H (10-42) IU/L ALT 51 (10-60) IU/L Alkaline Phosphatase 90 (42-121) IU/L Total Protein 6.1 L (6.7-8.2) g/dl Albumin 3.7 (3.2-5.5) g/dl Globulin 2.4 Albumin/Globulin Ratio 1.54 Amylase 69 (28-100) U/L Lipase 52 H (22-51) U/L Ethyl Alcohol < 5 mg/dL Meds: Medications Discontinued Medications Generic Name Dose Route Start Last Admin Trade Name Freq PRN Reason Stop Dose Admin Multivitamins/Minerals 10 ml/ 1,011.2 mls @ 999 mls/hr 05/10/19 18:50 19:01 Folic Acid 1 mg/ Thiamine HCl IV 05/10/19 19:50 999 mls/hr 100 mg/ Lactated Ringer's ONETIME ONE Administration Ketorolac Tromethamine 30 mg 05/10/19 21:22 05/10/19 21:26 Toradol IVPUSH 05/10/19 21:23 30 mg ONETIME ONE Administration Lorazepam 1 mg 05/10/19 19:33 05/10/19 19:56 Ativan IVPUSH 05/10/19 19:34 1 mg ONETIME ONE Administration Meclizine HCl 12.5 mg 05/10/19 20:52 05/10/19 20:56 Antivert PO 05/10/19 20:53 12.5 mg ONETIME ONE Administration Ondansetron HCl 4 mg 05/10/19 18:50 05/10/19 19:01 Zofran IV 05/10/19 18:51 4 mg ONETIME ONE Administration - Re-Assessments/Exams Free Text/Narrative Re-Assessment/Exam: 05/10/19 21:57 re-exam; s/p IV fluids + Rx = much better now. states wants to see [facility] sunday for treatment Departure - Departure Time of Disposition: 21:59 Disposition: Home, Self-Care 01 Condition: Good Clinical Impression: Reaction, situational, acute, to stress - Discharge Information Forms: ED Department Discharge Additional Instructions: 1) rest 2) don't drink alcohol 3) see Human Services Sunday 4) recheck if there is any change or concern
[2019-05-10 19:22] LABS: ANION GAP 15.7; CHLORIDE,CL 104 mmol/L (101-111); SODIUM,NA 137 mmol/L (135-145)
[2019-05-10] MEDS ORDERED: LORazepam 2 MG/ML Syringe IVPUSH ONE (19:33)
[2019-05-10] MEDS ORDERED: Meclizine 12.5 MG Tab PO ONE (20:52)
[2019-05-10] MEDS ORDERED: Ketorolac 30 MG/ML SDV IVPUSH ONE (21:22)
[2019-05-10 21:29] VITALS: BP 124/68
== END 2019-05-10 22:16 | disposition home or self-care (01) ==
LOC: DL.ED 18:45
DX: F43.0 Acute stress reaction (principal); M10.9 Gout, unspecified; F41.9 Anxiety disorder, unspecified; F32.9 Major depressive disorder, single episode, unspecified; Z98.84 Bariatric surgery status; Z90.710 Acquired absence of both cervix and uterus; Z86.2 Personal history of diseases of the blood and blood-forming organs and certain disorders involving the immune mechanism; Z79.899 Other long term (current) drug therapy; Z86.718 Personal history of other venous thrombosis and embolism
CPT/HCPCS: 36415; 70450; 80053; 82150; 83690; 85025; 96365; 96366; 96375; 99284; A9270; G0480; J1885; J2060; J2405; J3411; J7120; J3490

== ENCOUNTER 2019-09-03 12:50 | Emergency (ER) | payer MEDICAID, OTHER ==
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
[2019-09-03] MEDS ORDERED: Sodium Chloride 0.9% 10 ML Syringe FLUSH PRN (13:01)
[2019-09-03 13:45] LABS: CHLORIDE,CL 100 mmol/L (101-111); SODIUM,NA 134 mmol/L (135-145)
[2019-09-03] MEDS ORDERED: Potassium Chloride 10 MEQ Tab.ER PO ONE (13:54)
[2019-09-03] MEDS ORDERED: Lidocaine 1% 30 ML SDV ONE (13:54)
[2019-09-03] MEDS ORDERED: Potassium Chloride 10 MEQ in Premix Bag 1 BAG IV ONE (13:54)
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
[2019-09-03] MEDS ORDERED: Magnesium Sulfate/Water 4 GM in Premix Bag 1 BAG IV ONE (13:58)
--- NOTE | 2019-09-03 14:18 | CR ---
EXAMINATION: Chest 1V Frontal SEX: Female AGE: 59 years CLINICAL HISTORY: 59-year-old female emergency department. (Syncope) INTERPRETATION: Upright AP portable chest. External laboratory monitor leads. No acute new cardiopulmonary abnormality since PA film 14 Apr 2017. Less than optimal inspiratory effort crowds and accentuates the lung markings. No new signs of heart failure, lung mass or focal lobar pneumonia. No infiltrate/atelectasis. No pneumothorax or free subdiaphragmatic air. CONCLUSION: Negative exam.
[2019-09-03 14:33] VITALS: BP 144/79; PULSE 98
== END 2019-09-03 15:23 ==
LOC: DL.ED 12:50
DX: R55 Syncope and collapse (principal); F41.9 Anxiety disorder, unspecified; F32.9 Major depressive disorder, single episode, unspecified; Z79.899 Other long term (current) drug therapy; Z79.01 Long term (current) use of anticoagulants
CPT/HCPCS: 36415; 70450; 71045; 80053; 82962; 83735; 84443; 84484; 85025; 85610; 85730; 93005; 96365; 96375; 99285-25; A9270-GY; G0480; J2001; J3475; J3480

== ENCOUNTER 2019-09-16 18:54 | Emergency (ER) | payer OTHER ==
[2019-09-16 19:31] LABS: ANION GAP 11.2; CHLORIDE,CL 106 mmol/L (101-111); SODIUM,NA 141 mmol/L (135-145)
--- NOTE | 2019-09-16 19:34 | EDM.PDOC ---
ED HPI GENERAL MEDICAL PROBLEM - General Chief Complaint: Neurological Problem Stated Complaint: AMBULANCE/SEIZURES Time Seen by Provider: 09/16/19 18:54 Source of Information: Reports: Patient, EMS, EMS Notes Reviewed, Family, RN, RN Notes Reviewed History Limitations: Reports: No Limitations - History of Present Illness INITIAL COMMENTS - FREE TEXT/NARRATIVE: Pt to ER per [facility] as a trauma code. Patient was with her at [facility] getting groceries when she had an episode and fell to the floor hitting her head. Unsure if there was seizure like activity. Patient appeared to be post- ictal following incident as reported by bystanders. Patient on Eloquis for history of blood clots. Pt alert and oriented upon arrival to the ER. Patient has hx of alcoholism, states she has not drank alcohol for 6-8 weeks. Pt and family states she had a similar incident about 2 weeks ago and was transferred to [place]. Patient states she was told she was having syncopal episodes due to stress. Patient denies chest pain, palpitations, recent illness, SOB. Patient c/o headache rated 10/10. No spine board or C collar upon arrival to the ER. GCS upon arrival: 15 GCS at 1 hour: 15 Onset: Today, Sudden Treatments MANDATE RETAIL SERVICE MERCHANDISER: Reports: Other (see below) Other Treatments MANDATE RETAIL SERVICE MERCHANDISER: Pressure to head lac. - Related Data Allergies Allergy/AdvReac Type Severity Reaction Status Date / Time No Known Allergies Allergy Verified 09/03/19 13:11 Home Meds: Home Meds Pantoprazole Sodium 40 mg PO BID 06/09/14 [History] Apixaban [Eliquis] 5 mg PO DAILY 07/09/18 [History] Folic Acid 1 mg PO DAILY 07/09/18 [History] DULoxetine [Cymbalta] 30 mg PO DAILY 12/20/18 [History] busPIRone [Buspar] 10 mg PO BID 09/16/19 [History] hydrOXYzine HCl [hydrOXYzine] 25 mg PO TID PRN 09/16/19 [History] traZODone HCl [Trazodone HCl] 50 mg PO BEDTIME 09/16/19 [History] Past Medical History HEENT History: Reports: Impaired Vision, Sinusitis Other HEENT History: wears glasses Cardiovascular History: Reports: Blood Clots/VTE/DVT Respiratory History: Reports: PE Gastrointestinal History: Reports: PUD, Other (See Below) Other Gastrointestinal History: hx ulcers, gastric bypass Genitourinary History: Reports: None NURSE FIRST AID History: Reports: Other (See Below) Other NURSE FIRST AID History: hysterectomy Musculoskeletal History: Reports: Gout Neurological History: Reports: None Psychiatric History: Reports: Addiction, Anxiety, Depression Endocrine/Metabolic History: Reports: None, Osteopenia Hematologic History: Reports: Anemia, Iron Deficiency Immunologic History: Reports: None Oncologic (Cancer) History: Reports: Breast Dermatologic History: Reports: None Other Dermatologic History: OPEN AREAS TO BOTH LOWER LEGS FOR A YEAR OR MORE. IS UNDER THE CARE OF A FISH FROG OR OYSTER FARMER FOR THIS. - Infectious Disease History Infectious Disease History: Reports: Chicken Pox - Past Surgical History Head Surgeries/Procedures: Reports: None Cardiovascular Surgical History: Reports: None Respiratory Surgical History: Reports: None GI Surgical History: Reports: Appendectomy, Bariatric Procedure, Cholecystectomy , Colonoscopy, EGD Female Surgical History: Reports: Section, Hysterectomy, Mastectomy , Salpingo-Oophorectomy Musculoskeletal Surgical History: Reports: Other (See Below) Other Musculoskeletal Surgeries/Procedures:: lt partial mastectomy Oncologic Surgical History: Reports: Mastectomy Social & Family History - Family History Family Medical History: Noncontributory Cardiac: Reports: Afib Hematologic: Reports: Other (See Below) Oncologic: Reports: Pancreatic - Caffeine Use Caffeine Use: Reports: Soda Other Caffeine Use: 2 cans daily - Living Situation & Occupation Living situation: Reports: , Alone Occupation: Employed ED ROS GENERAL - Review of Systems Review Of Systems: ROS reveals no pertinent complaints other than HPI. ED EXAM, HEAD INJURY - Physical Exam Exam: See Below Exam Limited By: No Limitations General Appearance: Alert, WD/WN, Lethargic, Mild Distress Head: Scalp Lacerations, Scalp Swelling, Scalp Abrasions, Scalp Hematoma Nexus Criteria: Painful Distraction Injuries. No: Posterior, Midline Cervical Tenderness, Evidence of Intoxication, Altered Level of Consciousness, Focal Neurological Deficit Eyes: Bilateral Eye: EOMI, Normal Inspection, PERRL (4 brisk) Ears: Normal External Exam, Hearing Grossly Normal Nose: Normal Inspection, Normal Mucousa, No Blood Throat/Mouth: Normal Inspection, Normal Lips, Normal Teeth, Normal Gums, Normal Oropharynx, Normal Voice, No Airway Compromise Neck: Non-Tender, Full Range of Motion, Normal Alignment, Normal Inspection Respiratory: No Respiratory Distress, Lungs Clear, Normal Breath Sounds, No Accessory Muscle Use, Chest Non-Tender Cardiovascular: Normal Peripheral Pulses, Regular Rate, Rhythm, No Edema, No Gallop, No JVD, No Murmur, No Rub GI/Abdominal Exam: Normal Bowel Sounds, Soft, Non-Tender, No Organomegaly, No Distention, No Abnormal Bruit, No Mass (Female) Exam: Deferred Rectal (Female) Exam: Deferred Back Exam: Full Range of Motion, Normal Inspection, NT Extremities: Normal Inspection, Normal Range of Motion, Non-Tender, No Pedal Edema, Normal Capillary Refill Neurologic: No Motor/Sensory Deficits, Alert, Normal Mood/Affect, Oriented x 3 Skin: Normal Color, Warm/Dry, Other (1.5cm laceration to the left side of the head, with hematoma) - [place] Coma Score Best Eye Response ([place]): (4) Open Spontaneously Best Verbal Response ([place]): (5) Oriented Best Motor Response ([place]): (6) Obeys Commands [place] Total: 15 ED LACERATION/WOUND & SAROJ PROC - Laceration/Wound Repair Left Upper Lateral Head Lac/wound length in cm: 1.5 Appearance: Subcutaneous Skin Prep: Chlorhexidine ([place]) Exploration/Debridement/Repair: Wound Explored, In a Bloodless Field, No Foreign Material Found Closed with: [place] # of Sutures: 4 Drain Placement: No Sterile Dressing Applied: None Tetanus Status Addressed: Yes Complications: No Course - Orders/Labs/Meds Orders: Active Orders 24 hr Category Date Time Status EKG Documentation Completion [RC] STAT Care 09/16/19 19:13 Active Peripheral IV Care [RC] . DIRECTED Care 09/16/19 19:14 Active Peripheral IV Insertion Adult [OM.PC] Stat Oth 09/16/19 19:13 Ordered Labs: Laboratory Tests 09/16/19 09/16/19 09/16/19 Range/Units 19:04 19:04 19:04 WBC 5.2 (5.0-10.0) 10^3/uL RBC 3.92 L (4.2-5.4) 10^6/uL Hgb 12.2 (12.0-16.0) g/dL Hct 38.7 (37.0-47.0) % MCV 98.7 D (80-100) fL MCH 31.1 (27.0-34.0) pg MCHC 31.5 L (33.0-35.0) g/dL Plt Count 305 D (150-450) 10^3/uL Neut % (Auto) 55.4 (42.2-75.2) % Lymph % (Auto) 27.8 (20.5-50.1) % [place] % (Auto) 14.3 H (2-8) % Eos % (Auto) 1.5 (1.0-3.0) % Baso % (Auto) 1.0 (0.0-1.0) % PT 9.3 (9.0-12.0) SEC INR 0.9 (0.9-1.2) Sodium 141 (135-145) mmol/L Potassium 3.2 L (3.6-5.0) mmol/L Chloride 106 (101-111) mmol/L Carbon Dioxide 27.0 (21.0-31.0) mmol/L Anion Gap 11.2 BUN 6 L (7-18) mg/dL Creatinine 0.5 L (0.6-1.3) mg/dL Est Cr Clr Drug Dosing 95.82 mL/min Estimated GFR (MDRD) > 60 BUN/Creatinine Ratio 12.00 Glucose 69 L (74-105) mg/dL Calcium 8.6 (8.4-10.2) mg/dl Magnesium (1.8-2.5) mg/dL Total Bilirubin 0.4 (0.2-1.0) mg/dL AST 20 (10-42) IU/L ALT 16 (10-60) IU/L Alkaline Phosphatase 62 (42-121) IU/L Troponin I (0.00-0.02) ng/ml Total Protein 6.8 (6.7-8.2) g/dl Albumin 3.7 (3.2-5.5) g/dl Globulin 3.1 Albumin/Globulin Ratio 1.19 Urine Color (YELLOW) Urine Appearance (CLEAR) Urine pH (5.0-9.0) Ur Specific [place] (1.005-1.030) Urine Protein (NEGATIVE) Urine Glucose (UA) (NEGATIVE) Urine Ketones (NEGATIVE) Urine Occult Blood (NEGATIVE) Urine Nitrite (NEGATIVE) Urine Bilirubin (NEGATIVE) Urine Urobilinogen (0.2-1.0) mg/dL Ur Leukocyte Esterase (NEGATIVE) Urine Opiates Screen (NEGATIVE) Ur Oxycodone Screen (NEGATIVE) Urine Methadone Screen (NEGATIVE) Ur Barbiturates Screen (NEGATIVE) U Tricyclic Antidepress (NEGATIVE) Ur Phencyclidine Scrn (NEGATIVE) Ur Amphetamine Screen (NEGATIVE) U Methamphetamines Scrn (NEGATIVE) Urine MDMA Screen (NEGATIVE) U Benzodiazepines Scrn (NEGATIVE) Urine Cocaine Screen (NEGATIVE) U Marijuana (THC) Screen (NEGATIVE) Ethyl Alcohol < 5 mg/dL 09/16/19 09/16/19 09/16/19 Range/Units 19:04 19:04 20:05 WBC (5.0-10.0) 10^3/uL RBC (4.2-5.4) 10^6/uL Hgb (12.0-16.0) g/dL Hct (37.0-47.0) % MCV (80-100) fL MCH (27.0-34.0) pg MCHC (33.0-35.0) g/dL Plt Count (150-450) 10^3/uL Neut % (Auto) (42.2-75.2) % Lymph % (Auto) (20.5-50.1) % Mckean % (Auto) (2-8) % Eos % (Auto) (1.0-3.0) % Baso % (Auto) (0.0-1.0) % PT (9.0-12.0) SEC INR (0.9-1.2) Sodium (135-145) mmol/L Potassium (3.6-5.0) mmol/L Chloride (101-111) mmol/L Carbon Dioxide (21.0-31.0) mmol/L Anion Gap BUN (7-18) mg/dL Creatinine (0.6-1.3) mg/dL Est Cr Clr Drug Dosing mL/min Estimated GFR (MDRD) BUN/Creatinine Ratio Glucose (74-105) mg/dL Calcium (8.4-10.2) mg/dl Magnesium 1.8 (1.8-2.5) mg/dL Total Bilirubin (0.2-1.0) mg/dL AST (10-42) IU/L ALT (10-60) IU/L Alkaline Phosphatase (42-121) IU/L Troponin I < 0.02 (0.00-0.02) ng/ml Total Protein (6.7-8.2) g/dl Albumin (3.2-5.5) g/dl Globulin Albumin/Globulin Ratio Urine Color Yellow (YELLOW) Urine Appearance Clear (CLEAR) Urine pH 6.0 (5.0-9.0) Ur Specific [place] 1.025 (1.005-1.030) Urine Protein Negative (NEGATIVE) Urine Glucose (UA) 500 H (NEGATIVE) Urine Ketones Negative (NEGATIVE) Urine Occult Blood Negative (NEGATIVE) Urine Nitrite Negative (NEGATIVE) Urine Bilirubin Negative (NEGATIVE) Urine Urobilinogen 0.2 (0.2-1.0) mg/dL Ur Leukocyte Esterase Negative (NEGATIVE) Urine Opiates Screen (NEGATIVE) Ur Oxycodone Screen (NEGATIVE) Urine Methadone Screen (NEGATIVE) Ur Barbiturates Screen (NEGATIVE) U Tricyclic Antidepress (NEGATIVE) Ur Phencyclidine Scrn (NEGATIVE) Ur Amphetamine Screen (NEGATIVE) U Methamphetamines Scrn (NEGATIVE) Urine MDMA Screen (NEGATIVE) U Benzodiazepines Scrn (NEGATIVE) Urine Cocaine Screen (NEGATIVE) U Marijuana (THC) Screen (NEGATIVE) Ethyl Alcohol mg/dL 09/16/19 Range/Units 20:05 WBC (5.0-10.0) 10^3/uL RBC (4.2-5.4) 10^6/uL Hgb (12.0-16.0) g/dL Hct (37.0-47.0) % MCV (80-100) fL MCH (27.0-34.0) pg MCHC (33.0-35.0) g/dL Plt Count (150-450) 10^3/uL Neut % (Auto) (42.2-75.2) % Lymph % (Auto) (20.5-50.1) % [place]ke[place] % (Auto) (2-8) % Eos % (Auto) (1.0-3.0) % Baso % (Auto) (0.0-1.0) % PT (9.0-12.0) SEC INR (0.9-1.2) Sodium (135-145) mmol/L Potassium (3.6-5.0) mmol/L Chloride (101-111) mmol/L Carbon Dioxide (21.0-31.0) mmol/L Anion Gap BUN (7-18) mg/dL Creatinine (0.6-1.3) mg/dL Est Cr Clr Drug Dosing mL/min Estimated GFR (MDRD) BUN/Creatinine Ratio Glucose (74-105) mg/dL Calcium (8.4-10.2) mg/dl Magnesium (1.8-2.5) mg/dL Total Bilirubin (0.2-1.0) mg/dL AST (10-42) IU/L ALT (10-60) IU/L Alkaline Phosphatase (42-121) IU/L Troponin I (0.00-0.02) ng/ml Total Protein (6.7-8.2) g/dl Albumin (3.2-5.5) g/dl Globulin Albumin/Globulin Ratio Urine Color (YELLOW) Urine Appearance (CLEAR) Urine pH (5.0-9.0) Ur Specific [place] (1.005-1.030) Urine Protein (NEGATIVE) Urine Glucose (UA) (NEGATIVE) Urine Ketones (NEGATIVE) Urine Occult Blood (NEGATIVE) Urine Nitrite (NEGATIVE) Urine Bilirubin (NEGATIVE) Urine Urobilinogen (0.2-1.0) mg/dL Ur Leukocyte Esterase (NEGATIVE) Urine Opiates Screen Negative (NEGATIVE) Ur Oxycodone Screen Negative (NEGATIVE) Urine Methadone Screen Negative (NEGATIVE) Ur Barbiturates Screen Negative (NEGATIVE) U Tricyclic Antidepress Negative (NEGATIVE) Ur Phencyclidine Scrn Negative (NEGATIVE) Ur Amphetamine Screen Negative (NEGATIVE) U Methamphetamines Scrn Negative (NEGATIVE) Urine MDMA Screen Negative (NEGATIVE) U Benzodiazepines Scrn Negative (NEGATIVE) Urine Cocaine Screen Negative (NEGATIVE) U Marijuana (THC) Screen Negative (NEGATIVE) Ethyl Alcohol mg/dL Meds: Medications Discontinued Medications Generic Name Dose Route Start Last Admin Trade Name Freq PRN Reason Stop Dose Admin Butorphanol Tartrate 2 mg 09/16/19 20:19 09/16/19 20:30 Stadol IVPUSH 09/16/19 20:20 2 mg ONETIME ONE Administration Sodium Chloride 10 ml 09/16/19 19:14 09/16/19 19:47 Saline Flush FLUSH 10 ml ASDIRECTED PRN Administration Keep Vein Open - Radiology Interpretation Free Text/Narrative:: Head CT wo contrast: FINDINGS: Brain: Normal. No hemorrhage. Very mild white matter disease. No mass effect. Ventricles: Normal. No ventriculomegaly. Bones/joints: Unremarkable. No acute fracture. Sinuses: Visualized sinuses are unremarkable. No fluid levels. Mastoid air cells: Visualized mastoid air cells are well aerated. Soft tissues: Small subgaleal hematoma left vertex IMPRESSION: No acute intracranial process. Thank you for allowing us to participate in the care of your patient. Dictated and Authenticated by: Jose Freeman MD 09/16/2019 7:37 PM Central Time ([place] & [place]) C spine wo contrast: FINDINGS: Vertebrae: No acute fracture. Normal alignment. Discs/Spinal canal/Neural foramina: No spinal stenosis. Soft tissues: Unremarkable. Lungs: Lung apices are normal. IMPRESSION: No acute fracture or dislocation. Thank you for allowing us to participate in the care of your patient. Dictated and Authenticated by: Jose Freeman MD 09/16/2019 7:36 PM Central Time ([place] & [place]) See rad report - Re-Assessments/Exams Free Text/Narrative Re-Assessment/Exam: 09/16/19 20:17 Patient case discussed with Dr. Carrera who agreed to accept the patient for transfer to [facility] in [place]. Departure - Departure Time of Disposition: 23:19 Disposition: DC/Tfer to Acute Hospital 02 Condition: Fair Clinical Impression: Laceration Head injury Qualifiers: Encounter type: initial encounter Qualified Code(s): S09.90XA - Unspecified injury of head, initial encounter Syncopal episodes Qualifiers: Syncope type: unspecified Qualified Code(s): R55 - Syncope and collapse - Discharge Information *PRESCRIPTION DRUG MONITORING PROGRAM REVIEWED*: No *COPY OF PRESCRIPTION DRUG MONITORING REPORT IN PATIENT PETEY: No Referrals: PCP,Unobtain [Primary Care Provider] - Forms: ED Department Discharge, Interfacility Transfer EMTJR - My Orders Last 24 Hours: My Active Orders 09/16/19 19:13 EKG Documentation Completion [RC] STAT Peripheral IV Insertion Adult [OM.PC] Stat 09/16/19 19:14 Peripheral IV Care [RC] . DIRECTED - Assessment/Plan Last 24 Hours: My Active Orders 09/16/19 19:13 EKG Documentation Completion [RC] STAT Peripheral IV Insertion Adult [OM.PC] Stat 09/16/19 19:14 Peripheral IV Care [RC] . DIRECTED
[2019-09-16] MEDS: Sodium Chloride 0.9% 10 ML Syringe FLUSH PRN ×2 (19:36→19:47)
[2019-09-16] MEDS ORDERED: Butorphanol 2 MG/ML SDV IVPUSH ONE (20:19)
== END 2019-09-16 22:24 ==
LOC: DL.ED 18:54
DX: S01.01XA Laceration without foreign body of scalp, initial encounter (principal); K27.9 Peptic ulcer, site unspecified, unspecified as acute or chronic, without hemorrhage or perforation; F32.9 Major depressive disorder, single episode, unspecified; F41.9 Anxiety disorder, unspecified; Z79.899 Other long term (current) drug therapy
CPT/HCPCS: 12001; 36415; 70450; 72125; 80053; 80305; 80320; 81003; 83735; 84484; 85025; 85610; 93005; 96374; 99285; J0595; G0480

== ENCOUNTER 2019-10-23 20:36 | Emergency (ER) | payer OTHER ==
[2019-10-23] MEDS ORDERED: Ondansetron 4 MG/2 ML SDV IV ONE (21:00)
[2019-10-23] MEDS ORDERED: Sodium Chloride 0.9% 1,000 ML IV SCH (21:00)
--- NOTE | 2019-10-23 21:08 | EDM.PDOC ---
ED HPI GENERAL MEDICAL PROBLEM - General Chief Complaint: Gastrointestinal Problem Stated Complaint: DIZZY Time Seen by Provider: 10/23/19 21:05 Source of Information: Reports: Patient History Limitations: Reports: No Limitations (1 week h/o N/V/D) - History of Present Illness INITIAL COMMENTS - FREE TEXT/NARRATIVE: 1 week h/o N/V/D and exac dizziness which had for a while. Headache Pain Score (Numeric/FACES): 6 - Related Data Allergies Allergy/AdvReac Type Severity Reaction Status Date / Time No Known Allergies Allergy Verified 10/23/19 20:46 Home Meds: Home Meds Pantoprazole Sodium 40 mg PO BID 06/09/14 [History] Apixaban [Eliquis] 5 mg PO DAILY 07/09/18 [History] Folic Acid 1 mg PO DAILY 07/09/18 [History] DULoxetine [Cymbalta] 30 mg PO DAILY 12/20/18 [History] hydrOXYzine HCl [hydrOXYzine] 25 mg PO TID PRN 09/16/19 [History] traZODone HCl [Trazodone HCl] 50 mg PO BEDTIME 09/16/19 [History] Past Medical History HEENT History: Reports: Impaired Vision, Sinusitis Other HEENT History: wears glasses Cardiovascular History: Reports: Blood Clots/VTE/DVT Respiratory History: Reports: PE Gastrointestinal History: Reports: PUD, Other (See Below) Other Gastrointestinal History: hx ulcers, gastric bypass Genitourinary History: Reports: None ELECTRIC CAR OPERATOR History: Reports: Other (See Below) Other ELECTRIC CAR OPERATOR History: hysterectomy Musculoskeletal History: Reports: Gout Neurological History: Reports: Vertigo Psychiatric History: Reports: Addiction, Anxiety, Depression Endocrine/Metabolic History: Reports: None, Osteopenia Hematologic History: Reports: Anemia, Iron Deficiency Immunologic History: Reports: None Oncologic (Cancer) History: Reports: Breast Dermatologic History: Reports: None Other Dermatologic History: OPEN AREAS TO BOTH LOWER LEGS FOR A YEAR OR MORE. IS UNDER THE CARE OF A GRANULATING MACHINE OPERATOR FOR THIS. - Infectious Disease History Infectious Disease History: Reports: Chicken Pox - Past Surgical History Head Surgeries/Procedures: Reports: None Cardiovascular Surgical History: Reports: None Respiratory Surgical History: Reports: None GI Surgical History: Reports: Appendectomy, Bariatric Procedure, Cholecystectomy , Colonoscopy, EGD Female Surgical History: Reports: Section, Hysterectomy, Mastectomy , Salpingo-Oophorectomy Musculoskeletal Surgical History: Reports: Other (See Below) Other Musculoskeletal Surgeries/Procedures:: lt partial mastectomy Oncologic Surgical History: Reports: Mastectomy Social & Family History - Family History Family Medical History: Noncontributory Cardiac: Reports: Afib Hematologic: Reports: Other (See Below) Oncologic: Reports: Pancreatic - Tobacco Use Smoking Status *Q: Never Smoker - Caffeine Use Caffeine Use: Reports: Soda Other Caffeine Use: 2 cans daily - Recreational Drug Use Recreational Drug Use: No - Living Situation & Occupation Living situation: Reports: , Alone Occupation: Employed ED ROS GENERAL - Review of Systems Review Of Systems: Comprehensive ROS is negative, except as noted in HPI. ED EXAM, GI/ABD - Physical Exam Exam: See Below Exam Limited By: No Limitations General Appearance: Alert, WD/WN, Mild Distress, Other (discomfort). No: Active Emesis Ears: Hearing Grossly Normal Throat/Mouth: Normal Voice, No Airway Compromise Head: Atraumatic Neck: Non-Tender, Full Range of Motion Respiratory/Chest: No Respiratory Distress Cardiovascular: Regular Rate, Rhythm GI/Abdominal Exam: Soft, Tender, Other (generalized discomfort). No: Distended , Guarding, Rigid, Rebound Neurological: Alert, Oriented, Normal Cognition, Normal Gait, No Motor/Sensory Deficits Psychiatric: Flat Affect Skin Exam: Warm, Dry, Normal Color Lymphatic: No Adenopathy Course - Vital Signs Last Recorded V/S: Last Vital Signs Temp 35.9 C 10/23/19 20:41 Pulse 88 10/23/19 21:30 Resp 20 10/23/19 21:30 BP 151/89 H 10/23/19 21:30 Pulse Ox 92 L 10/23/19 21:30 - Orders/Labs/Meds Orders: Active Orders 24 hr Category Date Time Status EKG 12 Lead [EKG Documentation Completion] [RC] STAT Care 10/23/19 20:54 Active Labs: Laboratory Tests 10/23/19 10/23/19 Range/Units 21:05 21:05 WBC 5.1 (5.0-10.0) 10^3/uL RBC 4.33 (4.2-5.4) 10^6/uL Hgb 13.3 (12.0-16.0) g/dL Hct 40.0 (37.0-47.0) % MCV 92.4 D (80-100) fL MCH 30.7 (27.0-34.0) pg MCHC 33.3 (33.0-35.0) g/dL Plt Count 185 D (150-450) 10^3/uL Neut % (Auto) 66.0 (42.2-75.2) % Lymph % (Auto) 22.2 (20.5-50.1) % [place] % (Auto) 9.4 H (2-8) % Eos % (Auto) 1.4 (1.0-3.0) % Baso % (Auto) 1.0 (0.0-1.0) % Sodium 141 (135-145) mmol/L Potassium 3.5 L (3.6-5.0) mmol/L Chloride 106 (101-111) mmol/L Carbon Dioxide 21.0 (21.0-31.0) mmol/L Anion Gap 17.5 BUN 8 (7-18) mg/dL Creatinine 0.5 L (0.6-1.3) mg/dL Est Cr Clr Drug Dosing 95.82 mL/min Estimated GFR (MDRD) > 60 BUN/Creatinine Ratio 16.00 Glucose 115 H (74-105) mg/dL Calcium 8.5 (8.4-10.2) mg/dl Magnesium 1.5 L (1.8-2.5) mg/dL Total Bilirubin 1.0 (0.2-1.0) mg/dL AST 24 (10-42) IU/L ALT 13 (10-60) IU/L Alkaline Phosphatase 76 (42-121) IU/L Troponin I < 0.02 (0.00-0.02) ng/ml Total Protein 6.8 (6.7-8.2) g/dl Albumin 4.0 (3.2-5.5) g/dl Globulin 2.8 Albumin/Globulin Ratio 1.43 Meds: Medications Discontinued Medications Generic Name Dose Route Start Last Admin Trade Name Freq PRN Reason Stop Dose Admin Hydrocodone Bitart/Acetaminophen 1 tab 10/23/19 22:57 10/23/19 23:03 [place] 325-10 Mg PO 10/23/19 22:58 1 tab ONETIME ONE Administration Sodium Chloride 1,000 mls @ 500 mls/hr 10/23/19 21:00 10/23/19 21:10 Normal Saline IV 500 mls/hr ASDIRECTED MICHAEL Administration Ketorolac Tromethamine 30 mg 10/23/19 21:32 10/23/19 21:35 Toradol IVPUSH 10/23/19 21:33 30 mg ONETIME ONE Administration Ondansetron HCl 4 mg 10/23/19 21:00 10/23/19 21:14 Zofran IV 10/23/19 21:01 4 mg ONETIME ONE Administration - Re-Assessments/Exams Free Text/Narrative Re-Assessment/Exam: 10/23/19 22:58 results discussed with pt. Departure - Departure Time of Disposition: 23:35 Disposition: Home, Self-Care 01 Condition: Good Clinical Impression: Gastroenteritis, Dehydration symptoms, Hypokalemia, Hypomagnesemia - Discharge Information Instructions: Viral Gastroenteritis, Adult, [id number] Referrals: Alesia Lerma, COMMERCIAL FRONT LOAD OPERATOR [Primary Care Provider] - Forms: ED Department Discharge Additional Instructions: 1) avoid solid foods next 48 hours 2) have liquids 3) follow up at clinic 4) recheck if there is any change or concerns. - My Orders Last 24 Hours: My Active Orders 10/23/19 20:54 EKG 12 Lead [EKG Documentation Completion] [RC] STAT - Assessment/Plan Last 24 Hours: My Active Orders 10/23/19 20:54 EKG 12 Lead [EKG Documentation Completion] [RC] STAT
[2019-10-23 21:30] LABS: ANION GAP 17.5; CHLORIDE,CL 106 mmol/L (101-111); SODIUM,NA 141 mmol/L (135-145)
[2019-10-23] MEDS ORDERED: Ketorolac 30 MG/ML SDV IVPUSH ONE (21:32)
[2019-10-23 21:45] VITALS: BP 151/89; PULSE 88
[2019-10-23] MEDS ORDERED: Acetaminophen/HYDROcodone 325-10 MG Tab PO ONE (22:57)
== END 2019-10-23 23:35 | disposition home or self-care (01) ==
LOC: DL.ED 20:36
DX: K52.9 Noninfective gastroenteritis and colitis, unspecified (principal); E86.0 Dehydration; E87.6 Hypokalemia; E83.42 Hypomagnesemia; Z79.01 Long term (current) use of anticoagulants
CPT/HCPCS: 36415; 80053; 83735; 84484; 85025; 93005; 96361; 96374; 96375; 99284; A9270; J1885; J2405; J7030

== ENCOUNTER 2020-01-10 13:10 | Emergency (ER) | payer OTHER ==
[2020-01-10 14:29] VITALS: BP 125/73; PULSE 92
[2020-01-10] MEDS ORDERED: Sodium Chloride 0.9% 1,000 ML IV ONE (17:58)
[2020-01-10] MEDS ORDERED: Ondansetron 4 MG/2 ML SDV IVPUSH ONE (17:59)
[2020-01-10 18:03] LABS: CHLORIDE,CL 98 mmol/L (101-111); SODIUM,NA 133 mmol/L (135-145)
--- NOTE | 2020-01-10 19:07 | EDM.PDOC ---
Scribed by Tamara Melo 01/10/20 190 for Beto Portillo NP ED HPI GENERAL MEDICAL PROBLEM - General Chief Complaint: Gastrointestinal Problem Stated Complaint: NAUSEOUS/LIGHTHEADED/DIZZY Time Seen by Provider: 01/10/20 17:53 Source of Information: Reports: Patient, RN, RN Notes Reviewed History Limitations: Reports: No Limitations - History of Present Illness INITIAL COMMENTS - FREE TEXT/NARRATIVE: A 59-year-old female who presents to ER with complaints of headaches, nausea "she feeling like shit for the past 3 days". She reports drinking heavily 3 days ago and is feeling under the weather. She states she is an alcoholic and has been told not to drink alcohol. She reports feeling dehydrated and has not been able to keep anything down. Reports a history of acid reflux and states it feels like her ulcers are back. She has not taken anything for her symptoms. Denies any hematemesis. Onset Date: 01/07/20 Duration: Getting Worse Location: Reports: Abdomen Quality: Reports: Ache Severity: Moderate Improves with: Reports: None Worsens with: Reports: None Associated Symptoms: Reports: No Other Symptoms - Related Data Allergies Allergy/AdvReac Type Severity Reaction Status Date / Time No Known Allergies Allergy Verified 10/23/19 20:46 Home Meds: Home Meds Pantoprazole Sodium 40 mg PO BID 06/09/14 [History] Apixaban [Eliquis] 5 mg PO DAILY 07/09/18 [History] Folic Acid 1 mg PO DAILY 07/09/18 [History] DULoxetine [Cymbalta] 30 mg PO DAILY 12/20/18 [History] hydrOXYzine HCL [hydrOXYzine] 25 mg PO TID PRN 09/16/19 [History] traZODone HCl [Trazodone HCl] 50 mg PO BEDTIME 09/16/19 [History] Past Medical History HEENT History: Reports: Impaired Vision, Sinusitis Other HEENT History: wears glasses Cardiovascular History: Reports: Blood Clots/VTE/DVT Respiratory History: Reports: PE Gastrointestinal History: Reports: PUD, Other (See Below) Other Gastrointestinal History: hx ulcers, gastric bypass Genitourinary History: Reports: None [employer] DEVEL[employer] History: Reports: Other (See Below) 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 - Infectious Disease History Infectious Disease History: Reports: Chicken Pox - Past Surgical History Head Surgeries/Procedures: Reports: None Cardiovascular Surgical History: Reports: None Respiratory Surgical History: Reports: None GI Surgical History: Reports: Appendectomy, Bariatric Procedure, Cholecystectomy , Colonoscopy, EGD Female Surgical History: Reports: Section, Hysterectomy, Mastectomy , Salpingo-Oophorectomy Musculoskeletal Surgical History: Reports: Other (See Below) Other Musculoskeletal Surgeries/Procedures:: lt partial mastectomy Oncologic Surgical History: Reports: Mastectomy Social & Family History - Family History Family Medical History: Noncontributory Cardiac: Reports: Afib Hematologic: Reports: Other (See Below) Oncologic: Reports: Pancreatic - Tobacco Use Smoking Status *Q: Never Smoker - Caffeine Use Caffeine Use: Reports: Soda, Tea Other Caffeine Use: 2 cans daily - Alcohol Use Number of Drinks Per Day: 6 - Recreational Drug Use Recreational Drug Use: No - Living Situation & Occupation Living situation: Reports: , Alone Occupation: Employed ED ROS GENERAL - Review of Systems Review Of Systems: Comprehensive ROS is negative, except as noted in HPI. ED EXAM, GI/ABD - Physical Exam Exam: See Below Exam Limited By: No Limitations General Appearance: Alert, WD/WN, No Apparent Distress Eyes: Bilateral: Normal Appearance Ears: Normal External Exam, Normal Canal, Hearing Grossly Normal, Normal TMs Nose: Normal Inspection, Normal Mucosa, No Blood Throat/Mouth: Normal Inspection, Normal Lips, Normal Teeth, Normal Gums, Normal Oropharynx, Normal Voice, No Airway Compromise Head: Atraumatic, Normocephalic Neck: Normal Inspection, Supple, Non-Tender, Full Range of Motion Respiratory/Chest: No Respiratory Distress, Lungs Clear, Normal Breath Sounds, No Accessory Muscle Use, Chest Non-Tender Cardiovascular: Normal Peripheral Pulses, Regular Rate, Rhythm, No Edema, No Gallop, No JVD, No Murmur, No Rub GI/Abdominal Exam: Other (right upper epigastric pain. ) (Female) Exam: Deferred Rectal (Female) Exam: Deferred Back Exam: Normal Inspection, Full Range of Motion, NT Extremities: Normal Inspection, Normal Range of Motion, Non-Tender, Normal Capillary Refill, No Pedal Edema Neurological: Alert, Oriented, CN II-XII Intact, Normal Cognition, Normal Gait, Normal Reflexes, No Motor/Sensory Deficits Psychiatric: Normal Affect, Normal Mood Skin Exam: Warm, Dry, Intact, Normal Color, No Rash Lymphatic: No Adenopathy EKG INTERPRETATION EKG Date: 01/10/20 Time: 17:20 Rhythm: Other (sinus rhythm) Rate (Beats/Min): 79 [place]: Normal P-Wave: Present QRS: Other (abnormal R progression) ST-T: Normal QT: Normal Course - Vital Signs Last Recorded V/S: Last Vital Signs Temp 98.2 F 01/10/20 14:22 Pulse 92 01/10/20 14:22 Resp 18 01/10/20 14:22 BP 125/73 01/10/20 14:22 Pulse Ox 97 01/10/20 14:22 - Orders/Labs/Meds Orders: Active Orders 24 hr Category Date Time Status EKG Documentation Completion [RC] STAT Care 01/10/20 17:15 Active Labs: Laboratory Tests 01/10/20 01/10/20 Range/Units 17:26 17:26 WBC 3.5 L (5.0-10.0) 10^3/uL RBC 4.27 (4.2-5.4) 10^6/uL Hgb 13.4 (12.0-16.0) g/dL Hct 38.0 (37.0-47.0) % MCV 89.0 D (80-100) fL MCH 31.4 (27.0-34.0) pg MCHC 35.3 H (33.0-35.0) g/dL Plt Count 132 L (150-450) 10^3/uL Neut % (Auto) 59.6 (42.2-75.2) % Lymph % (Auto) 28.0 (20.5-50.1) % [place] % (Auto) 11.0 H (2-8) % Eos % (Auto) 0.6 L (1.0-3.0) % Baso % (Auto) 0.8 (0.0-1.0) % Sodium 133 L (135-145) mmol/L Potassium 4.0 (3.6-5.0) mmol/L Chloride 98 L (101-111) mmol/L Carbon Dioxide 21.0 (21.0-31.0) mmol/L Anion Gap 18.0 BUN 7 (7-18) mg/dL Creatinine 0.7 (0.6-1.3) mg/dL Est Cr Clr Drug Dosing 68.44 mL/min Estimated GFR (MDRD) > 60 BUN/Creatinine Ratio 10.00 Glucose 193 H (74-105) mg/dL Calcium 8.2 L (8.4-10.2) mg/dl Total Bilirubin 1.2 H (0.2-1.0) mg/dL AST 145 H (10-42) IU/L ALT 75 H (10-60) IU/L Alkaline Phosphatase 221 H (42-121) IU/L Total Protein 6.4 L (6.7-8.2) g/dl Albumin 3.4 (3.2-5.5) g/dl Globulin 3.0 Albumin/Globulin Ratio 1.13 Ethyl Alcohol 57 mg/dL Meds: Medications Discontinued Medications Generic Name Dose Route Start Last Admin Trade Name Freq PRN Reason Stop Dose Admin Sodium Chloride 1,000 mls @ 1,000 mls/hr 01/10/20 17:58 01/10/20 18:43 Normal Saline IV 01/10/20 18:57 1,000 mls/hr .BOLUS ONE Administration Ondansetron HCl 4 mg 01/10/20 17:59 01/10/20 18:43 Zofran IVPUSH 01/10/20 18:00 4 mg ONETIME ONE Administration - Re-Assessments/Exams Free Text/Narrative Re-Assessment/Exam: Review lab results with patient. IV fluids an Zofran administered with some relief. Encouraged patient to quit drinking and seek treatment. She verbalized understanding. Departure - Departure Time of Disposition: 19:05 Disposition: Home, Self-Care 01 Condition: Good, Fair Clinical Impression: Alcohol abuse Alcohol withdrawal Qualifiers: Complication of substance-induced condition: uncomplicated Qualified Code(s): F10.230 - Alcohol dependence with withdrawal, uncomplicated - Discharge Information Instructions: Binge-Drinking Information, Adult, Alcohol Abuse and Nutrition Forms: ED Department Discharge Additional Instructions: Push fluids. Encouraged patient to quit drinking and seek treatment. She verbalized understanding. Sepsis Event Note - Evaluation Sepsis Screening Result: No Definite Risk - Focused Exam Vital Signs: Vital Signs Temp Pulse Resp BP Pulse Ox 01/10/20 14:22 98.2 F 92 18 125/73 97 Date Exam was Performed: 01/10/20 Time Exam was Performed: 19:03 - My Orders Last 24 Hours: My Active Orders 01/10/20 17:15 EKG Documentation Completion [RC] STAT - Assessment/Plan Last 24 Hours: My Active Orders 01/10/20 17:15 EKG Documentation Completion [RC] STAT I have read and agree with the documentation that has been completed regarding this visit. By signing this record, I attest that the documentation was completed in my physical presence and is an accurate record of the encounter.
== END 2020-01-10 19:50 | disposition home or self-care (01) ==
LOC: DL.ED 13:10
DX: F10.230 Alcohol dependence with withdrawal, uncomplicated (principal); F41.9 Anxiety disorder, unspecified; F32.9 Major depressive disorder, single episode, unspecified; Z79.01 Long term (current) use of anticoagulants; Z86.718 Personal history of other venous thrombosis and embolism
CPT/HCPCS: 36415; 80053; 80307; 82962; 85025; 93005; 96361; 96374; 99284; J2405; J7030

== ENCOUNTER 2020-07-16 20:15 | Observation (INO) | payer MEDICAID ==
[2020-07-16] MEDS ORDERED: Ondansetron 4 MG Tab.DIS PO PRN (20:42)
[2020-07-16] MEDS ORDERED: Acetaminophen/HYDROcodone 325-10 MG Tab PO PRN (20:42)
[2020-07-16] MEDS ORDERED: Acetaminophen 325 MG Tab PO PRN (20:42)
[2020-07-16] MEDS ORDERED: Docusate Sodium 100 MG Cap PO PRN (20:42)
[2020-07-16] MEDS ORDERED: hydrOXYzine HCl 25 MG Tab PO PRN (20:48)
[2020-07-16] MEDS ORDERED: Magnesium Sulfate/D5W 2 GM in Premix Bag 1 BAG IV ONE (20:50)
[2020-07-16] MEDS ORDERED: Potassium Chloride 10 MEQ Tab.ER PO ONE (20:50)
[2020-07-16] MEDS ORDERED: traZODone 50 MG Tab PO SCH (21:00)
[2020-07-16] MEDS: Pantoprazole 40 MG Tab.CR PO SCH (22:04)
[2020-07-16] MEDS ORDERED: Sodium Chloride 0.9% with KCl 1,000 ML IV SCH (22:17)
--- NOTE | 2020-07-16 23:10 | HP ---
CHIEF COMPLAINT: Hypokalemia. HISTORY OF PRESENT ILLNESS: The patient is a 60-year-old female, who was seen at the clinic today by Alesia Lerma because of complaints of low back pain after she had a fall about 2 weeks ago, and also during her visit this morning at the clinic, she was also complaining of feeling a little bit dizzy. She had some lab workup done at the clinic and her potassium was noted to be 2.7. Because of this, she was given 40 mEq of IVPB potassium chloride, and this was rechecked again after the 40 mEq IV of potassium, and potassium was still 2.7. Because of this, the patient was then admitted for further management. The patient is still complaining of low back pain. She also had a CAT scan of the L- spine, which showed some compression deformity of L4. The patient denies though any fever, chills, syncope, chest pain, shortness of breath, abdominal pain, bowel or bladder incontinence, nor any other complaints. PAST MEDICAL HISTORY: Remarkable for unprovoked DVT. She is on anticoagulation therapy. She has anxiety and depression, history of breast cancer, history of alcohol abuse, and alcohol withdrawal syndrome. FAMILY HISTORY: Noncontributory. SOCIAL HISTORY: The patient is . She had history of alcohol abuse, but has been sober now for the last several months. She denies any illicit drug use. REVIEW OF SYSTEMS: As in HPI. The rest of the review of systems is negative. HOME MEDICATIONS: Duloxetine 60 mg daily, Eliquis 5 mg twice a day, hydrocodone, hydroxyzine, lorazepam, Pepcid, Flonase, Pred Forte, Protonix, albuterol inhaler, folic acid. ALLERGIES: No known drug allergies. PHYSICAL EXAMINATION: General: The patient is alert and oriented, in [id number] distress from the low back pain. Vital Signs: Blood pressure is 110/64, pulse of 64, respirations of 18, temperature of 97.2. HEENT: Normocephalic. There are pink palpebral conjunctivae. Sclerae anicteric. Neck: No JVD. No lymphadenopathy. Heart: Regular rate and rhythm. Normal S1 and S2. No gallops. No rubs. Lungs: Equal bilaterally. No crackles. No wheezing. Abdomen: Soft, nontender. Bowel sounds positive. Extremities: Negative for any significant pedal edema. No calf tenderness. ADMITTING DIAGNOSES: 1. Hypokalemia. 2. Low back pain secondary to compression fracture of the L4. 3. History of deep venous thrombosis, on anticoagulation. 4. Anxiety. TREATMENT PLAN: The patient is going to be admitted to observation on telemetry. Potassium will be repleted as well as the magnesium, and the rest of the management as necessary. [facility] /[id number]
[2020-07-16] MEDS: Morphine 2 MG/ML SYRINGE IVPUSH PRN (23:35)
[2020-07-17] MEDS: Morphine 2 MG/ML SYRINGE IVPUSH PRN ×2 (05:06→10:16)
[2020-07-17] MEDS ORDERED: Apixaban 5 MG Tab PO SCH (09:00)
[2020-07-17] MEDS ORDERED: Folic Acid 1 MG Tab PO SCH (09:00)
[2020-07-17] MEDS ORDERED: DULoxetine 30 MG Cap PO SCH (09:00)
[2020-07-17] MEDS ORDERED: Potassium Chloride 10 MEQ Tab.ER PO ONE (09:09)
[2020-07-17] MEDS: Pantoprazole 40 MG Tab.CR PO SCH (09:16)
[2020-07-17 09:55] VITALS: BP 110/61; PULSE 102
--- NOTE | 2020-07-17 10:08 | PN ---
DATE: 07/17/2020 SUBJECTIVE: The patient this morning was feeling slightly dizzy and still complaining of low back pain, but her potassium and magnesium level this morning are potassium is 3.3 and magnesium is 2 which is now within normal limits. Otherwise, the patient denies any other ongoing complaints. OBJECTIVE: Vital Signs: Blood pressure is 110/87, pulse of 60, respirations of 18, temperature of 97.2, and saturation is 96%. Heart: Regular rate and rhythm. Normal S1 and S2. No gallops. No rubs. Lungs: Equal bilaterally. No crackles. No wheezing. Abdomen: Soft, nontender. Bowel sounds positive. Extremities: Negative for any pedal edema. No calf tenderness. PLAN: We will finish the IV fluids with potassium and we will discharge the patient home today and we will continue with her potassium supplementation. She is going to follow up with Alesia Lerma this coming Sunday as scheduled. [facility] /[id number]
--- NOTE | 2020-07-17 10:50 | DISCH ---
FINAL DIAGNOSES: 1. Hypokalemia. 2. Low back pain secondary to compression fracture of L4. 3. History of deep vein thrombosis and pulmonary embolism on anticoagulation with Eliquis. 4. Anxiety. 5. Hypomagnesemia. BRIEF HISTORY OF PRESENT ILLNESS: Please see H and P. PERTINENT LAB, X-RAY, AND OTHER TESTS: See H and P. HOSPITAL COURSE: The patient was admitted to General Medicine floor under observation and potassium was repleted orally as well as intravenously under telemetry. Magnesium was also repeated through IV. Followup potassium level the following day was 3.3, which is improvement from 2.7, and magnesium level is 2 which is now within normal limits. Because of this, the patient was subsequently discharged. CONDITION ON DISCHARGE: Improved. We will continue with her oral potassium supplementation as prescribed by Alesia Lerma and she is going to follow up with Alesia Lerma this coming Sunday. [facility] /[id number]
== END 2020-07-17 10:45 | disposition home or self-care (01) ==
LOC: DL.MS 20:18
PROVIDERS: ADMIT Internal Medicine; ATTEND Internal Medicine
DX: E87.6 Hypokalemia (principal); F41.9 Anxiety disorder, unspecified; F32.9 Major depressive disorder, single episode, unspecified; E83.42 Hypomagnesemia; M48.56XA Collapsed vertebra, not elsewhere classified, lumbar region, initial encounter for fracture; Z79.01 Long term (current) use of anticoagulants; Z86.718 Personal history of other venous thrombosis and embolism; Z86.711 Personal history of pulmonary embolism; Z79.899 Other long term (current) drug therapy
CPT/HCPCS: 36415; 83735; 84100; 84132; 96365; 96366; 96368; 96375; 96376; A9270-GY; G0378; J2270; J3475; J3480

== ENCOUNTER 2021-01-31 12:00 | Emergency (ER) | payer MEDICAID ==
--- NOTE | 2021-01-31 12:22 | EDM.PDOC ---
ED HPI GENERAL MEDICAL PROBLEM - General Chief Complaint: Drug or Alcohol Abuse Stated Complaint: AMBULANCE Time Seen by Provider: 01/31/21 12:21 Source of Information: Reports: Patient, EMS, Old Records, RN, RN Notes Reviewed History Limitations: Reports: No Limitations - History of Present Illness INITIAL COMMENTS - FREE TEXT/NARRATIVE: Pt arrives to ER from home by ambulance with report that family and friends have been concerned about the pt's welfare due to excessive alcohol abuse and unsafe living conditions. The pt's ex- call 911 last evening after finding the pt on the floor of her apartment with piles of trash, urine soaked carpets, and human feces all over the floor in several rooms. The EMS crew report finding similar conditions, but the pt was awake, alert and capable of making reasonable decisions, and she refused to go with the ambulance last night. The EMS crew reports that someone (family or friend) filed a vulnerable adult report on the pt, and the mill dresser did as well. The pt admits to heavy daily alcohol consumption since the holidays (September 2020), and even heavier the last 3 to 5 days. She c/o nausea, and feels cold. She also admits to tenderness of the thighs and buttock area from being incontinent. She denies head injury, chest pain, confusion, seizures, cough, or fever. Pt admits the she has not taken any of her medications for weeks. Onset: Unknown/Unsure Duration: Chronic, Getting Worse Location: Reports: Generalized Quality: Reports: Ache Severity: Mild Improves with: Reports: None Worsens with: Reports: None Associated Symptoms: Reports: No Other Symptoms - Related Data Allergies Allergy/AdvReac Type Severity Reaction Status Date / Time prednisone Allergy Itching Verified 07/16/20 22:44 Home Meds: Home Meds Pantoprazole Sodium 40 mg PO BID 06/09/14 [History] Apixaban [Eliquis] 5 mg PO BID 07/09/18 [History] Folic Acid 1 mg PO DAILY 07/09/18 [History] DULoxetine [Cymbalta] 60 mg PO DAILY 12/20/18 [History] hydrOXYzine HCL [hydrOXYzine] 25 mg PO TID PRN 09/16/19 [History] Fluticasone Propionate [Flonase] 1 spray INH BID 07/16/20 [History] Hydrocodone/Acetaminophen [Hydrocodone-Acetamin 5-325 mg] 1 tab PO BID PRN 07/16/20 [History] Multivit-Min/Iron/Folic/Lutein [Multivitamin Women 50 Plus Tab] 1 tab PO DAILY 07/16/20 [History] prednisoLONE acetate [Pred Forte 1% Ophth Susp] 1 drop EYEBOTH BID 07/16/20 [History] Acetaminophen [Tylenol] 650 mg PO Q4H PRN tablet 07/17/20 [Rx] Rivaroxaban [Xarelto] 15 mg PO DAILY 01/31/21 [History] Past Medical History HEENT History: Reports: Hard of Hearing, Impaired Vision, Sinusitis Other HEENT History: wears glasses, right [place] Cardiovascular History: Reports: Blood Clots/VTE/DVT Respiratory History: Reports: PE Gastrointestinal History: Reports: Fatty Liver, PUD, Other (See Below) Other Gastrointestinal History: hx ulcers, gastric bypass Genitourinary History: Reports: Pyelonephritis CONTENT DEVELOPER History: Reports: Other (See Below) Other CONTENT DEVELOPER History: hysterectomy Musculoskeletal History: Reports: Fracture, Gout Other Musculoskeletal History: Gout in 1970's, recent fall on 07/10/20 c fracture of L4 Neurological History: Reports: Vertigo Psychiatric History: Reports: Addiction (Alcohol), Anxiety, Depression Other Psychiatric History: ETOH Endocrine/Metabolic History: Reports: None, Osteopenia Hematologic History: Reports: Anemia, Folic Acid, Iron Deficiency Immunologic History: Reports: None Oncologic (Cancer) History: Reports: Breast Other Oncologic History: left Dermatologic History: Reports: Other (See Below) Other Dermatologic History: OPEN AREAS TO BOTH LOWER LEGS FOR A YEAR OR MORE, ulcers - Infectious Disease History Infectious Disease History: Reports: Chicken Pox, Measles - Past Surgical History Head Surgeries/Procedures: Reports: None Cardiovascular Surgical History: Reports: None Respiratory Surgical History: Reports: None GI Surgical History: Reports: Appendectomy, Bariatric Procedure, Cholecystectomy, Colonoscopy, EGD Female Surgical History: Reports: Section, Hysterectomy, Mastectomy, Salpingo-Oophorectomy Other Female Surgeries/Procedures: left mastectomy, CA history Musculoskeletal Surgical History: Reports: Other (See Below) Other Musculoskeletal Surgeries/Procedures:: left partial mastectomy Oncologic Surgical History: Reports: Mastectomy Social & Family History - Family History Family Medical History: No Pertinent Family History Cardiac: Reports: Afib Hematologic: Reports: Other (See Below) Oncologic: Reports: Pancreatic - Caffeine Use Caffeine Use: Reports: Soda Other Caffeine Use: occasional - Alcohol Use Alcohol Use History: Yes Alcohol Use Frequency: Daily - Recreational Drug Use Recreational Drug Use: No - Living Situation & Occupation Living situation: Reports: , Alone Occupation: Unemployed ED ROS GENERAL - Review of Systems Review Of Systems: Comprehensive ROS is negative, except as noted in HPI. ED EXAM, GENERAL - Physical Exam Exam: See Below Exam Limited By: No Limitations General Appearance: Alert, No Apparent Distress, Other (Disheveled, with urine soaked clothing, and feces smeared from head to toe.) Eye Exam: Bilateral Eye: Normal Inspection (No scleral icterus) Ears: Normal External Exam, Hearing Grossly Normal Nose: Normal Inspection, No Blood Throat/Mouth: Normal Lips, Normal Voice, No Airway Compromise, Other (No evidence of tongue biting or injury) Head: Atraumatic, Normocephalic Neck: Normal Inspection, Non-Tender, Full Range of Motion Respiratory/Chest: No Respiratory Distress, Lungs Clear, Normal Breath Sounds, No Accessory Muscle Use, Chest Non-Tender Cardiovascular: Normal Peripheral Pulses, Regular Rate, Rhythm GI/Abdominal: Normal Bowel Sounds, Soft, Non-Tender, No Distention, Hepatomegaly, Other (Soft protruberant abdomen, likely from ascites). No: Guarding, Rigid, Rebound (Female) Exam: Deferred Rectal (Female) Exam: Deferred Back Exam: Normal Inspection Extremities: Normal Range of Motion, Normal Capillary Refill, Pedal Edema. No: Joint Swelling, Guanaco's Sign Neurological: Alert, Oriented, CN II-XII Intact, Normal Cognition, No Motor/Sensory Deficits Psychiatric: Depressed Mood, Flat Affect Skin Exam: Warm, Dry, Other (Redness to buttock and superior posterior thighs, consistent with prolonged supine position) #1 Interpretation EKG Date: 01/31/21 Time: 12:57 Rhythm: Other (SR) Rate (Beats/Min): 82 [place]: Normal P-Wave: Present QRS: Wide (Nonspecific IVCD) ST-T: Normal QT: Prolonged Comparison: No Change Course - Vital Signs Last Recorded V/S: Last Vital Signs Temp 98.7 F 01/31/21 12:25 Pulse 82 01/31/21 12:25 Resp 17 01/31/21 12:25 BP 121/60 01/31/21 12:25 Pulse Ox - Orders/Labs/Meds Orders: Active Orders 24 hr Category Date Time Status EKG 12 Lead [EKG Documentation Completion] [RC] STAT Care 01/31/21 12:22 Active Insert Dominguez Catheter [Insert Urinary Catheter] [OM.PC] Care 01/31/21 14:30 Ordered Q24H Peripheral IV Care [RC] . DIRECTED Care 01/31/21 12:23 Active Urinary Catheter Assessment [RC] ASDIRECTED Care 01/31/21 14:28 Active CULTURE BLOOD [BC] Stat Lab 01/31/21 12:33 Received CULTURE BLOOD [BC] Stat Lab 01/31/21 12:41 Results CULTURE URINE [RM] Stat Lab 01/31/21 14:00 Received Sodium Chloride 0.9% [Saline Flush] Med 01/31/21 12:23 Active 10 ml FLUSH ASDIRECTED PRN Blood Culture x2 Reflex Set [OM.PC] Stat Oth 01/31/21 12:22 Ordered Peripheral IV Insertion Adult [OM.PC] Stat Oth 01/31/21 12:22 Ordered Medication Orders Sodium Chloride (Saline Flush) 10 ml FLUSH ASDIRECTED PRN PRN Reason: Keep Vein Open Last Admin: 01/31/21 13:06 Dose: 10 ml Documented by: [id number] Labs: Laboratory Tests 01/31/21 01/31/21 01/31/21 Range/Units 12:33 12:33 12:33 WBC 6.7 (5.0-10.0) 10^3/uL RBC 4.13 L (4.2-5.4) 10^6/uL Hgb 9.8 L D (12.0-16.0) g/dL Hct 30.5 L (37.0-47.0) % MCV 73.8 L D (80-100) fL MCH 23.7 L (27.0-34.0) pg MCHC 32.1 L (33.0-35.0) g/dL Plt Count 135 L (150-450) 10^3/uL Neut % (Auto) 80.4 H (42.2-75.2) % Lymph % (Auto) 9.2 L (20.5-50.1) % [place] % (Auto) 8.5 H (2-8) % Eos % (Auto) 0.3 L (1.0-3.0) % Baso % (Auto) 1.6 H (0.0-1.0) % Add Manual Diff Yes Neutrophils % (Manual) 87 H (42-75) % Band Neutrophils % 1 % Lymphocytes % (Manual) 8 L (20-50) % Monocytes % (Manual) 4 (2-8) % Hypochromasia 1+ slight Anisocytosis 1+ slight Microcytosis 1+ slight PT 9.4 (9.0-12.0) SEC INR 1.0 (0.9-1.2) APTT 27.4 (22.0-34.0) SEC Sodium 116 L* (136-145) mmol/L Potassium 4.0 (3.5-5.1) mmol/L Chloride 79 L (98-107) mmol/L Carbon Dioxide 20 L (21-32) mmol/L Anion Gap 21.0 H (7-13) mEq/L BUN 2 L (7-18) mg/dL Creatinine 0.40 L (0.55-1.02) mg/dL Est Cr Clr Drug Dosing 116.81 mL/min Estimated GFR (MDRD) > 60 BUN/Creatinine Ratio 5.0 (No establ ref range) Glucose 89 (74-99) mg/dL Lactic Acid (0.4-2.0) mmol/L Calcium 7.8 L (8.5-10.1) mg/dL Magnesium 1.5 L (1.8-2.4) mg/dL Total Bilirubin 0.7 (0.2-1.0) mg/dL AST 185 H (15-37) U/L ALT 111 H (14-59) U/L Alkaline Phosphatase 82 (46-116) U/L Creatine Kinase 3532 H (16-191) U/L Troponin I < 0.017 (0.000-0.056) ng/mL C-Reactive Protein < 0.2 (0.0-0.9) mg/dL Total Protein 6.4 (6.4-8.2) g/dL Albumin 3.1 L (3.4-5.0) g/dL Globulin 3.3 Albumin/Globulin Ratio 0.94 Amylase 108 (25-115) U/L Lipase 371 (73-393) U/L TSH, Ultra Sensitive 2.12 (0.36-3.74) uIU/mL Urine Color (YELLOW) Urine Appearance (CLEAR) Urine pH (5.0-9.0) Ur Specific [place] (1.005-1.030) Urine Protein (NEGATIVE) Urine Glucose (UA) (NEGATIVE) Urine Ketones (NEGATIVE) Urine Occult Blood (NEGATIVE) Urine Nitrite (NEGATIVE) Urine Bilirubin (NEGATIVE) Urine Urobilinogen (0.2-1.0) mg/dL Ur Leukocyte Esterase (NEGATIVE) Urine RBC /HPF Urine WBC (0-5/HPF) /HPF Ur Epithelial Cells (NOT SEEN) /HPF Amorphous Sediment (NOT SEEN) /HPF Urine Bacteria (0-FEW/HPF) /HPF Urine Mucus (NOT SEEN) /LPF Urine Opiates Screen (NEGATIVE) Ur Oxycodone Screen (NEGATIVE) Urine Methadone Screen (NEGATIVE) Ur Barbiturates Screen (NEGATIVE) U Tricyclic Antidepress (NEGATIVE) Ur Phencyclidine Scrn (NEGATIVE) Ur Amphetamine Screen (NEGATIVE) U Methamphetamines Scrn (NEGATIVE) Urine MDMA Screen (NEGATIVE) U Benzodiazepines Scrn (NEGATIVE) Urine Cocaine Screen (NEGATIVE) U Marijuana (THC) Screen (NEGATIVE) Ethyl Alcohol 249 (0) mg/dL 01/31/21 01/31/21 01/31/21 Range/Units 12:33 14:00 14:00 WBC (5.0-10.0) 10^3/uL RBC (4.2-5.4) 10^6/uL Hgb (12.0-16.0) g/dL Hct (37.0-47.0) % MCV (80-100) fL MCH (27.0-34.0) pg MCHC (33.0-35.0) g/dL Plt Count (150-450) 10^3/uL Neut % (Auto) (42.2-75.2) % Lymph % (Auto) (20.5-50.1) % [place] % (Auto) (2-8) % Eos % (Auto) (1.0-3.0) % Baso % (Auto) (0.0-1.0) % Add Manual Diff Neutrophils % (Manual) (42-75) % Band Neutrophils % % Lymphocytes % (Manual) (20-50) % Monocytes % (Manual) (2-8) % Hypochromasia Anisocytosis Microcytosis PT (9.0-12.0) SEC INR (0.9-1.2) APTT (22.0-34.0) SEC Sodium (136-145) mmol/L Potassium (3.5-5.1) mmol/L Chloride (98-107) mmol/L Carbon Dioxide (21-32) mmol/L Anion Gap (7-13) mEq/L BUN (7-18) mg/dL Creatinine (0.55-1.02) mg/dL Est Cr Clr Drug Dosing mL/min Estimated GFR (MDRD) BUN/Creatinine Ratio (No establ ref range) Glucose (74-99) mg/dL Lactic Acid 7.8 H* (0.4-2.0) mmol/L Calcium (8.5-10.1) mg/dL Magnesium (1.8-2.4) mg/dL Total Bilirubin (0.2-1.0) mg/dL AST (15-37) U/L ALT (14-59) U/L Alkaline Phosphatase (46-116) U/L Creatine Kinase (16-191) U/L Troponin I (0.000-0.056) ng/mL C-Reactive Protein (0.0-0.9) mg/dL Total Protein (6.4-8.2) g/dL Albumin (3.4-5.0) g/dL Globulin Albumin/Globulin Ratio Amylase (25-115) U/L Lipase (73-393) U/L TSH, Ultra Sensitive (0.36-3.74) uIU/mL Urine Color Yellow (YELLOW) Urine Appearance Cloudy (CLEAR) Urine pH 5.0 (5.0-9.0) Ur Specific [place] 1.020 (1.005-1.030) Urine Protein Negative (NEGATIVE) Urine Glucose (UA) Negative (NEGATIVE) Urine Ketones Negative (NEGATIVE) Urine Occult Blood Moderate H (NEGATIVE) Urine Nitrite Negative (NEGATIVE) Urine Bilirubin Negative (NEGATIVE) Urine Urobilinogen 0.2 (0.2-1.0) mg/dL Ur Leukocyte Esterase Moderate H (NEGATIVE) Urine RBC 20-30 H /HPF Urine WBC Semi-packed H (0-5/HPF) /HPF Ur Epithelial Cells Few (NOT SEEN) /HPF Amorphous Sediment Few (NOT SEEN) /HPF Urine Bacteria Few (0-FEW/HPF) /HPF Urine Mucus Few H (NOT SEEN) /LPF Urine Opiates Screen Negative (NEGATIVE) Ur Oxycodone Screen Negative (NEGATIVE) Urine Methadone Screen Negative (NEGATIVE) Ur Barbiturates Screen Negative (NEGATIVE) U Tricyclic Antidepress Negative (NEGATIVE) Ur Phencyclidine Scrn Negative (NEGATIVE) Ur Amphetamine Screen Negative (NEGATIVE) U Methamphetamines Scrn Negative (NEGATIVE) Urine MDMA Screen Negative (NEGATIVE) U Benzodiazepines Scrn Negative (NEGATIVE) Urine Cocaine Screen Negative (NEGATIVE) U Marijuana (THC) Screen Negative (NEGATIVE) Ethyl Alcohol (0) mg/dL 01/31/21 01/31/21 Range/Units 14:09 14:09 WBC (5.0-10.0) 10^3/uL RBC (4.2-5.4) 10^6/uL Hgb (12.0-16.0) g/dL Hct (37.0-47.0) % MCV (80-100) fL MCH (27.0-34.0) pg MCHC (33.0-35.0) g/dL Plt Count (150-450) 10^3/uL Neut % (Auto) (42.2-75.2) % Lymph % (Auto) (20.5-50.1) % [place] % (Auto) (2-8) % Eos % (Auto) (1.0-3.0) % Baso % (Auto) (0.0-1.0) % Add Manual Diff Neutrophils % (Manual) (42-75) % Band Neutrophils % % Lymphocytes % (Manual) (20-50) % Monocytes % (Manual) (2-8) % Hypochromasia Anisocytosis Microcytosis PT (9.0-12.0) SEC INR (0.9-1.2) APTT (22.0-34.0) SEC Sodium 119 L* (136-145) mmol/L Potassium 4.1 (3.5-5.1) mmol/L Chloride 82 L (98-107) mmol/L Carbon Dioxide 20 L (21-32) mmol/L Anion Gap 21.1 H (7-13) mEq/L BUN 2 L (7-18) mg/dL Creatinine 0.33 L (0.55-1.02) mg/dL Est Cr Clr Drug Dosing 141.59 mL/min Estimated GFR (MDRD) > 60 BUN/Creatinine Ratio 6.1 (No establ ref range) Glucose 76 (74-99) mg/dL Lactic Acid 8.5 H* (0.4-2.0) mmol/L Calcium 7.6 L (8.5-10.1) mg/dL Magnesium (1.8-2.4) mg/dL Total Bilirubin 0.7 (0.2-1.0) mg/dL AST 179 H (15-37) U/L ALT 102 H (14-59) U/L Alkaline Phosphatase 75 (46-116) U/L Creatine Kinase (16-191) U/L Troponin I (0.000-0.056) ng/mL C-Reactive Protein (0.0-0.9) mg/dL Total Protein 5.8 L (6.4-8.2) g/dL Albumin 2.8 L (3.4-5.0) g/dL Globulin 3.0 Albumin/Globulin Ratio 0.93 Amylase (25-115) U/L Lipase (73-393) U/L TSH, Ultra Sensitive (0.36-3.74) uIU/mL Urine Color (YELLOW) Urine Appearance (CLEAR) Urine pH (5.0-9.0) Ur Specific [place] (1.005-1.030) Urine Protein (NEGATIVE) Urine Glucose (UA) (NEGATIVE) Urine Ketones (NEGATIVE) Urine Occult Blood (NEGATIVE) Urine Nitrite (NEGATIVE) Urine Bilirubin (NEGATIVE) Urine Urobilinogen (0.2-1.0) mg/dL Ur Leukocyte Esterase (NEGATIVE) Urine RBC /HPF Urine WBC (0-5/HPF) /HPF Ur Epithelial Cells (NOT SEEN) /HPF Amorphous Sediment (NOT SEEN) /HPF Urine Bacteria (0-FEW/HPF) /HPF Urine Mucus (NOT SEEN) /LPF Urine Opiates Screen (NEGATIVE) Ur Oxycodone Screen (NEGATIVE) Urine Methadone Screen (NEGATIVE) Ur Barbiturates Screen (NEGATIVE) U Tricyclic Antidepress (NEGATIVE) Ur Phencyclidine Scrn (NEGATIVE) Ur Amphetamine Screen (NEGATIVE) U Methamphetamines Scrn (NEGATIVE) Urine MDMA Screen (NEGATIVE) U Benzodiazepines Scrn (NEGATIVE) Urine Cocaine Screen (NEGATIVE) U Marijuana (THC) Screen (NEGATIVE) Ethyl Alcohol (0) mg/dL Meds: Medications Generic Name Dose Route Start Last Admin Trade Name Daleq PRN Reason Stop Dose Admin Sodium Chloride 10 ml 01/31/21 12:23 01/31/21 13:06 Saline Flush FLUSH 10 ml ASDIRECTED PRN Administration Keep Vein Open Discontinued Medications Generic Name Dose Route Start Last Admin Trade Name Robyn PRN Reason Stop Dose Admin Multivitamins/Minerals 10 ml/ 1,011.2 mls @ 999 mls/hr 01/31/21 12:23 01/31/21 13:05 Thiamine HCl 100 mg/ Folic IV 01/31/21 13:23 999 mls/hr Acid 1 mg/ Lactated Ringer's .BOLUS ONE Administration Ondansetron HCl 4 mg 01/31/21 12:23 01/31/21 13:05 Zofran IV 01/31/21 12:24 4 mg ONETIME ONE Administration Ondansetron HCl 4 mg 01/31/21 13:40 01/31/21 13:45 Zofran IV 01/31/21 13:41 4 mg ONETIME ONE Administration - Re-Assessments/Exams Free Text/Narrative Re-Assessment/Exam: 01/31/21 13:[address] Blank, who advised holding the remaining banana bag IVF, and repeating the labs for Na+ and lactic acid. 01/31/21 15:15 Repeat Na+119.Plan to transfer the pt to [facility], with Dr. Piña accepting. *A vulnerable adult has been filed through the ER with [place] APS. Departure - Departure Time of Disposition: 15:11 Disposition: DC/Tfer to Acute Hospital 02 Condition: Serious, Critical Clinical Impression: Acute hyponatremia, Alcohol abuse, Chronic anemia, Self neglect Alcohol intoxication Qualifiers: Complication of substance-induced condition: with unspecified complication Qualified Code(s): F10.929 - Alcohol use, unspecified with intoxication, unspecified - Discharge Information *PRESCRIPTION DRUG MONITORING PROGRAM REVIEWED*: Not Applicable *COPY OF PRESCRIPTION DRUG MONITORING REPORT IN PATIENT PETEY: Not Applicable Forms: ED Department Discharge, Interfacility Transfer [facility] Sepsis Event Note (ED) - Focused Exam Vital Signs: Vital Signs Temp Pulse Resp BP 01/31/21 12:25 98.7 F 82 17 121/60 - My Orders Last 24 Hours: My Active Orders 01/31/21 12:22 EKG 12 Lead [EKG Documentation Completion] [RC] STAT Blood Culture x2 Reflex Set [OM.PC] Stat Peripheral IV Insertion Adult [OM.PC] Stat 01/31/21 12:23 Peripheral IV Care [RC] . DIRECTED Sodium Chloride 0.9% [Saline Flush] 10 ml FLUSH ASDIRECTED PRN 01/31/21 12:33 CULTURE BLOOD [BC] Stat 01/31/21 12:41 CULTURE BLOOD [BC] Stat 01/31/21 14:00 CULTURE URINE [RM] Stat 01/31/21 14:28 Urinary Catheter Assessment [RC] ASDIRECTED 01/31/21 14:30 Insert Dominguez Catheter [Insert Urinary Catheter] [OM.PC] Q24H - Assessment/Plan Last 24 Hours: My Active Orders 01/31/21 12:22 EKG 12 Lead [EKG Documentation Completion] [RC] STAT Blood Culture x2 Reflex Set [OM.PC] Stat Peripheral IV Insertion Adult [OM.PC] Stat 01/31/21 12:23 Peripheral IV Care [RC] . DIRECTED Sodium Chloride 0.9% [Saline Flush] 10 ml FLUSH ASDIRECTED PRN 01/31/21 12:33 CULTURE BLOOD [BC] Stat 01/31/21 12:41 CULTURE BLOOD [BC] Stat 01/31/21 14:00 CULTURE URINE [RM] Stat 01/31/21 14:28 Urinary Catheter Assessment [RC] ASDIRECTED 01/31/21 14:30 Insert Dominguez Catheter [Insert Urinary Catheter] [OM.PC] Q24H
[2021-01-31] MEDS ORDERED: Sodium Chloride 0.9% 10 ML Syringe FLUSH PRN (12:23)
[2021-01-31] MEDS ORDERED: Ondansetron 4 MG/2 ML SDV IV ONE ×2 (12:23→13:40)
[2021-01-31] MEDS ORDERED: MVI, Adult with Vitamin K 10 ML, Thiamine 100 MG, Folic Acid 1 MG in Lactated Ringers 1... IV ONE ×4 (12:23)
[2021-01-31 13:04] VITALS: BP 121/60; PULSE 82
[2021-01-31 13:08] LABS: PTT,PARTIAL THROMBOPLSTIN TIME 27.4 SEC (22.0-34.0)
[2021-01-31 13:18] LABS: CHLORIDE,CL 79 mmol/L (98-107)
[2021-01-31 13:20] LABS: SODIUM,NA 116 mmol/L (136-145)
[2021-01-31 14:44] LABS: CHLORIDE,CL 82 mmol/L (98-107)
[2021-01-31 14:50] LABS: ANION GAP 21.1 mEq/L (7-13)
[2021-01-31 14:51] LABS: SODIUM,NA 119 mmol/L (136-145)
== END 2021-01-31 16:06 ==
LOC: DL.ED 12:00
DX: F10.129 Alcohol abuse with intoxication, unspecified (principal); Y90.8 Blood alcohol level of 240 mg/100 ml or more; T76.01XA Adult neglect or abandonment, suspected, initial encounter; D64.9 Anemia, unspecified; E87.1 Hypo-osmolality and hyponatremia; Z79.01 Long term (current) use of anticoagulants; Z79.899 Other long term (current) drug therapy
CPT/HCPCS: 36415; 51702; 80053; 80305; 80307; 81001; 82150; 82550; 83605; 83690; 83735; 84443; 84484; 85025; 85610; 85730; 86140; 87040; 87086; 87088; 87186; 93005; 96374; 96375; 99285; J2405; J3411; J7120; 93010; 99284; J3490

== ENCOUNTER 2021-02-08 10:21 | Inpatient (IN) | payer MEDICAID ==
[2021-02-08] MEDS: traMADol 50 MG Tab PO PRN (17:56)
[2021-02-08] MEDS: QUEtiapine 25 MG Tab PO PRN (17:58)
--- NOTE | 2021-02-08 18:42 | PCM.HP ---
H&P History of Present Illness - General Date of Service: 02/08/21 Admit Problem/Dx: Admission Diagnosis/Problem Admission Diagnosis/Problem Hyponatremia - History of Present Illness Initial Comments - Free Text/Narative: 62F w/ pmh alcoholism, alcoholic liver cirrhosis, breast ca s/p left partial mastectomy, s/p gastric bypass, IRENE, hx DVT/PE on Xarelto, gout, depression, anxiety, recently admitted for severe hyponatremia (Na 116) after being found down in her apartment intoxicated and in a disheveled state now transferred to for Swing Bed. 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 She underwent and EGD which did not demonstrate varices but did show gastritis. She is now well appearing. c/o back pains and muscle weakness due to deconditioning. Back Pain Score (Numeric/FACES): 5 - Related Data Allergies/Adverse Reactions: Allergies Allergy/AdvReac Type Severity Reaction Status Date / Time No Known Drug Allergies Allergy Other Verified 02/08/21 14:24 Home Medications: Home Meds Multivit-Min/Iron/Folic/Lutein [Multivitamin Women 50 Plus Tab] 1 tab PO DAILY 07/16/20 [History] Rivaroxaban [Xarelto] 15 mg PO DAILY 01/31/21 [History] Acetaminophen [Tylenol Arthritis] 1,300 mg PO Q8HR PRN 02/08/21 [History] Escitalopram Oxalate [Lexapro] 10 mg PO DAILY 02/08/21 [History] Famotidine [Pepcid] 20 mg PO DAILY 02/08/21 [History] Melatonin 6 mg PO BEDTIME 02/08/21 [History] Potassium Chloride 20 meq PO DAILY 02/08/21 [History] QUEtiapine [SEROquel] 25 mg PO TID PRN 02/08/21 [History] traMADol [Ultram] 50 mg PO Q6HR PRN 02/08/21 [History] Past Medical History HEENT History: Reports: Hard of Hearing, Impaired Vision, Sinusitis Other HEENT History: wears glasses, right [place] Cardiovascular History: Reports: Blood Clots/VTE/DVT Respiratory History: Reports: PE Gastrointestinal History: Reports: Fatty Liver, PUD, Other (See Below) Other Gastrointestinal History: hx ulcers, gastric bypass Genitourinary History: Reports: Pyelonephritis 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 (See Below) Other OB/BYN History: hysterectomy Musculoskeletal History: Reports: Fracture, Gout Other Musculoskeletal History: Gout in 1970's, recent fall on 07/10/20 c fracture of L4 Neurological History: Reports: Vertigo Psychiatric History: Reports: Addiction, Anxiety, Depression Other Psychiatric History: ETOH Endocrine/Metabolic History: Reports: None, Osteopenia Hematologic History: Reports: Anemia, Folic Acid, Iron Deficiency Immunologic History: Reports: None Oncologic (Cancer) History: Reports: Breast Other Oncologic History: left Dermatologic History: Reports: Other (See Below) Other Dermatologic History: OPEN AREAS TO BOTH LOWER LEGS FOR A YEAR OR MORE, ulcers - Infectious Disease History Infectious Disease History: Reports: Chicken Pox, Measles - Past Surgical History Head Surgeries/Procedures: Reports: None HEENT Surgical History: Reports: Naso-Sinus Surgery, Other (See Below) Other HEENT Surgeries/Procedures: [place] rigth ear Cardiovascular Surgical History: Reports: None Respiratory Surgical History: Reports: None GI Surgical History: Reports: Appendectomy, Bariatric Procedure, Cholecystectomy, Colonoscopy, EGD Female Surgical History: Reports: Section, Hysterectomy, Mastectomy, Salpingo-Oophorectomy Other Female Surgeries/Procedures: left mastectomy, CA history Musculoskeletal Surgical History: Reports: Other (See Below) Other Musculoskeletal Surgeries/Procedures:: left partial mastectomy Oncologic Surgical History: Reports: Mastectomy Social & Family History - Family History Family Medical History: No Pertinent Family History Cardiac: Reports: Afib Hematologic: Reports: Other (See Below) Oncologic: Reports: Pancreatic - Tobacco Use Tobacco Use Status *Q: Never Tobacco User Second Hand Smoke Exposure: No - Caffeine Use Caffeine Use: Reports: Soda Other Caffeine Use: occasional - Recreational Drug Use Recreational Drug Use: No - Living Situation & Occupation Living situation: Reports: , Alone Occupation: Employed H&P Review of Systems - Review of Systems: Review Of Systems: See Below General: Reports: Weakness. Denies: Fever, Chills HEENT: Denies: Headaches Pulmonary: Denies: Shortness of Breath, Wheezing Cardiovascular: Denies: Chest Pain, Dyspnea on Exertion Gastrointestinal: Denies: Abdominal Pain Genitourinary: Denies: Dysuria Musculoskeletal: Denies: Joint Pain Skin: Denies: Jaundice Psychiatric: Denies: Confusion Neurological: Denies: Dizziness Hematologic/Lymphatic: Denies: Easy Bleeding Exam - Exam Exam: See Below - Vital Signs Vital Signs: Last Vital Signs Temp 97.8 F 02/08/21 15:13 Pulse 82 02/08/21 15:13 Resp 18 02/08/21 15:13 BP 110/61 02/08/21 15:13 Pulse Ox 100 02/08/21 16:45 Weight: 163 lb 12.8 oz - Exam Quality Assessment: No: Supplemental Oxygen General: Alert, Oriented, Cooperative HEENT: Conjunctiva Clear Neck: Supple Lungs: Clear to Auscultation, Normal Respiratory Effort Cardiovascular: Regular Rate, Regular Rhythm GI/Abdominal Exam: Normal Bowel Sounds, Soft, Non-Tender, No Distention Back Exam: Normal Inspection Extremities: No Pedal Edema Skin: Warm, Dry, Intact Neurological: Normal Speech Neuro Extensive - Mental Status: Alert, Oriented x3, Normal Mood/Affect Neuro Extensive - Motor, Sensory, Reflexes: No: Tremor Psychiatric: Alert, Normal Affect, Normal Mood Problem List Initiated/Reviewed/Updated: No Orders Last 24hrs: Active Orders 24 hr Category Date Time Status Patient Status [ADT] Routine ADT 02/08/21 16:45 Active Oxygen Therapy [RC] PRN Care 02/08/21 16:45 Active Up With Assistance [RC] ASDIRECTED Care 02/08/21 16:45 Active VTE/DVT Education [RC] PER UNIT ROUTINE Care 02/08/21 16:45 Active Vital Signs [RC] 08,20 Care 02/08/21 16:45 Active OT Evaluation and Treatment [CONS] Routine Cons 02/08/21 16:45 Active PT Evaluation and Treatment [CONS] Routine Cons 02/08/21 16:45 Active Regular Diet [DIET] Diet 02/08/21 Dinner Active CBC WITH AUTO DIFF [HEME] AM Lab 02/09/21 05:11 Ordered COMPREHENSIVE METABOLIC PN,CMP [CHEM] AM Lab 02/09/21 05:11 Ordered Acetaminophen [TylenoL] Med 02/08/21 16:45 Active 650 mg PO Q4H PRN Escitalopram [Lexapro] Med 02/09/21 09:00 Active 10 mg PO DAILY Famotidine [Pepcid] Med 02/09/21 09:00 Active 20 mg PO DAILY Melatonin Med 02/08/21 21:00 Active 6 mg PO BEDTIME Multivitamins/Minerals [Vitamins and Minerals] Med 02/09/21 09:00 Active 1 tab PO DAILY Potassium Chloride [Klor-Con 10] Med 02/09/21 09:00 Active 20 meq PO DAILY QUEtiapine [SEROqueL] Med 02/08/21 17:09 Active 25 mg PO TID PRN Rivaroxaban [Xarelto] Med 02/09/21 18:00 Active 15 mg PO WITHDINNER traMADol [Ultram] Med 02/08/21 17:09 Active 50 mg PO Q6HR PRN Resuscitation Status Routine Resus Stat 02/08/21 16:45 Ordered Medication Orders Acetaminophen (Acetaminophen 325 Mg Tab) 650 mg PO Q4H PRN PRN Reason: Pain (Mild 1-3)/fever Escitalopram Oxalate (Escitalopram 10 Mg Tab) 10 mg PO DAILY MICHAEL Famotidine (Famotidine 20 Mg Tab) 20 mg PO DAILY MICHAEL Melatonin (Melatonin 3 Mg Tab) 6 mg PO BEDTIME MICHAEL Multivitamins/Minerals (Multivitamins, Therapeutic With Minerals Tab) 1 tab PO DAILY MICHAEL Potassium Chloride (Potassium Chloride 10 Meq Tab.Er) 20 meq PO DAILY MICHAEL Quetiapine Fumarate (Quetiapine 25 Mg Tab) 25 mg PO TID PRN PRN Reason: Anxiety Last Admin: 02/08/21 17:58 Dose: 25 mg Documented by: TOYA Rivaroxaban (Rivaroxaban 10 Mg Tab) 15 mg PO WITHDINNER MICHAEL Tramadol HCl (Tramadol 50 Mg Tab) 50 mg PO Q6HR PRN PRN Reason: Pain Last Admin: 02/08/21 17:56 Dose: 50 mg Documented by: TOYA Assessment/Plan Comment:: #deconditioning - PT/OT to eval and treat #alcohol dependence, abuse and compensated alcoholic liver cirrhosis - pt is set to transfer to an in-patient program when her physical debility improves #hx DVT/PE - c/w Xarelto #chronic anemia - s/p EGD on last hospital stay - scheduled for cscope 02/16? #gout / anxiety / depression - c/w home meds PPX - on a/c Full code
[2021-02-08] MEDS: Melatonin 3 MG Tab PO SCH (21:45)
[2021-02-09] MEDS: traMADol 50 MG Tab PO PRN ×4 (00:36→20:41)
[2021-02-09] MEDS: QUEtiapine 25 MG Tab PO PRN ×3 (01:31→17:14)
[2021-02-09 07:09] LABS: ANION GAP 11.5 mEq/L (7-13); CHLORIDE,CL 106 mmol/L (98-107); SODIUM,NA 142 mmol/L (136-145)
[2021-02-09] MEDS: Multivitamins, Therapeutic with Minerals Tab PO SCH (08:49)
[2021-02-09] MEDS: Famotidine 20 MG Tab PO SCH (08:49)
[2021-02-09] MEDS: Potassium Chloride 10 MEQ Tab.ER PO SCH (08:50)
[2021-02-09] MEDS: Escitalopram 10 MG Tab PO SCH (08:50)
[2021-02-09] MEDS: Rivaroxaban 10 MG Tab PO SCH (17:13)
[2021-02-09] MEDS: Melatonin 3 MG Tab PO SCH (20:41)
[2021-02-10] MEDS ORDERED: diphenhydrAMINE 25 MG Tab PO ONE (00:12)
[2021-02-10] MEDS: QUEtiapine 25 MG Tab PO PRN ×2 (02:12→14:10)
[2021-02-10] MEDS: Multivitamins, Therapeutic with Minerals Tab PO SCH (08:06)
[2021-02-10] MEDS: Potassium Chloride 10 MEQ Tab.ER PO SCH (08:06)
[2021-02-10] MEDS: Famotidine 20 MG Tab PO SCH (08:06)
[2021-02-10] MEDS: Escitalopram 10 MG Tab PO SCH (08:06)
[2021-02-10] MEDS: traMADol 50 MG Tab PO PRN (08:06)
[2021-02-10] MEDS: Isopropyl Myristate/Mineral Oil/Water Lotion 240 ML Bottle TOP PRN (11:01)
[2021-02-10] MEDS: Loratadine 10 MG Tab PO SCH (11:01)
[2021-02-10] MEDS: Acetaminophen 325 MG Tab PO PRN ×2 (17:01→20:51)
[2021-02-10] MEDS: Rivaroxaban 10 MG Tab PO SCH (17:01)
[2021-02-10] MEDS: Melatonin 3 MG Tab PO SCH (20:44)
[2021-02-10] MEDS ORDERED: diphenhydrAMINE 50 MG Cap PO SCH (21:00)
[2021-02-11] MEDS: Isopropyl Myristate/Mineral Oil/Water Lotion 240 ML Bottle TOP PRN (02:23)
[2021-02-11] MEDS: Acetaminophen 325 MG Tab PO PRN (06:21)
[2021-02-11 07:39] VITALS: BP 105/65; PULSE 78
[2021-02-11] MEDS: Escitalopram 10 MG Tab PO SCH ×2 (08:27→09:41)
[2021-02-11] MEDS: Potassium Chloride 10 MEQ Tab.ER PO SCH (08:27)
[2021-02-11] MEDS: Loratadine 10 MG Tab PO SCH (08:27)
[2021-02-11] MEDS: Multivitamins, Therapeutic with Minerals Tab PO SCH (08:28)
[2021-02-11] MEDS: Famotidine 20 MG Tab PO SCH (08:28)
[2021-02-11] MEDS ORDERED: Famotidine 20 MG/2 ML SDV IVPUSH ONE (09:23)
[2021-02-11] MEDS ORDERED: Ondansetron 4 MG Tab.DIS PO ONE (09:23)
--- NOTE | 2021-02-11 17:09 | PCM.DCSUM1 ---
Discharge Summary - Hospital Course Free Text/Narrative:: 62F w/ pmh alcoholism, alcoholic liver cirrhosis, breast ca s/p left partial mastectomy, s/p gastric bypass, IRENE, hx DVT/PE on Xarelto, gout, depression, anxiety, recently admitted for severe hyponatremia (Na 116) after being found down in her apartment intoxicated and in a disheveled state now transferred to for Swing Bed. 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 She underwent and EGD which did not demonstrate varices but did show gastritis. She is now well appearing. c/o back pains and muscle weakness due to deconditioning. Pt's Swing Bed stay was uneventful. She progressed w/ PT quickly and was d/c straight into an inpatient alcohol rehab program. Diagnosis: Stroke: No - Discharge Data Discharge Date: 02/11/21 Discharge Disposition: Home, Self-Care 01 Condition: Good - Referral to Home Health Primary Care Physician: Alesia Lerma NP - Patient Summary/Data Consults: Consultations 02/08/21 16:45 OT Evaluation and Treatment [CONS] Routine PT Evaluation and Treatment [CONS] Routine - Discharge Plan *PRESCRIPTION DRUG MONITORING PROGRAM REVIEWED*: Not Applicable *COPY OF PRESCRIPTION DRUG MONITORING REPORT IN PATIENT PETEY: Not Applicable Prescriptions/Med Rec: Escitalopram Oxalate [Lexapro] 10 mg PO DAILY #30 tab Potassium Chloride 20 meq PO DAILY #60 tab Rivaroxaban [Xarelto] 15 mg PO DAILY #30 tab Home Medications: Home Meds Multivit-Min/Iron/Folic/Lutein [Multivitamin Women 50 Plus Tab] 1 tab PO DAILY 07/16/20 [History] Famotidine [Pepcid] 20 mg PO DAILY 02/08/21 [History] Acetaminophen [Tylenol] 650 mg PO Q4H PRN tablet 02/11/21 [Rx] Escitalopram Oxalate [Lexapro] 10 mg PO DAILY #30 tab 02/11/21 [Rx] Loratadine [Claritin] 10 mg PO DAILY tablet 02/11/21 [Rx] Potassium Chloride 20 meq PO DAILY #60 tab 02/11/21 [Rx] Rivaroxaban [Xarelto] 15 mg PO DAILY #30 tab 02/11/21 [Rx] Patient Handouts: Potassium Chloride Extended-Release Capsules, Rivaroxaban oral tablets, Hyponatremia, [id number], Deconditioning, Back Exercises, [id number], Alcohol Abuse and Nutrition, Chronic Back Pain, [id number], Recovering From Addiction, Escitalopram tablets - Discharge Summary/Plan Comment DC Time >30 min.: Yes (35 min) - Patient Data Vitals - Most Recent: Last Vital Signs Temp 98 F 02/11/21 07:31 Pulse 78 02/11/21 07:31 Resp 16 02/11/21 07:31 BP 105/65 02/11/21 07:31 Pulse Ox 100 02/11/21 07:31 Weight - Most Recent: 163 lb 12.8 oz Med Orders - Current: Current Medications Discontinued Medications Acetaminophen (Acetaminophen 325 Mg Tab) 650 mg PO Q4H PRN PRN Reason: Pain (Mild 1-3)/fever Last Admin: 02/11/21 06:21 Dose: 650 mg Documented by: Diphenhydramine HCl (Diphenhydramine 25 Mg Tab) 25 mg PO ONETIME ONE Stop: 02/10/21 00:13 Last Admin: 02/10/21 00:23 Dose: 25 mg Documented by: Diphenhydramine HCl (Diphenhydramine 50 Mg Cap) 50 mg PO BEDTIME [facility] Emollient Ointment (Isopropyl Myristate/Mineral Oil/Water Lotion 240 Ml Bottle) 1 ml TOP QID PRN PRN Reason: Itching Last Admin: 02/11/21 02:23 Dose: 1 applic Documented by: Escitalopram Oxalate (Escitalopram 10 Mg Tab) 10 mg PO DAILY [facility] Last Admin: 02/11/21 09:41 Dose: 10 mg Documented by: Famotidine (Famotidine 20 Mg Tab) 20 mg PO DAILY [facility] Last Admin: 02/11/21 08:28 Dose: 20 mg Documented by: Famotidine (Famotidine 20 Mg/2 Ml Sdv) 20 mg IVPUSH ONETIME ONE Stop: 02/11/21 09:24 Last Admin: 02/11/21 11:42 Dose: Not Given Documented by: Loratadine (Loratadine 10 Mg Tab) 10 mg PO DAILY [facility] Last Admin: 02/11/21 08:27 Dose: 10 mg Documented by: Melatonin (Melatonin 3 Mg Tab) 6 mg PO BEDTIME [facility] Last Admin: 02/10/21 20:44 Dose: 6 mg Documented by: Multivitamins/Minerals (Multivitamins, Therapeutic With Minerals Tab) 1 tab PO DAILY [facility] Last Admin: 02/11/21 08:28 Dose: 1 tab Documented by: Ondansetron HCl (Ondansetron 4 Mg Tab.Dis) 4 mg PO ONETIME ONE Stop: 02/11/21 09:24 Last Admin: 02/11/21 10:06 Dose: 4 mg Documented by: Potassium Chloride (Potassium Chloride 10 Meq Tab.Er) 20 meq PO DAILY [facility] Last Admin: 02/11/21 08:27 Dose: 20 meq Documented by: Quetiapine Fumarate (Quetiapine 25 Mg Tab) 25 mg PO TID PRN PRN Reason: Anxiety Last Admin: 02/10/21 14:10 Dose: 25 mg Documented by: Rivaroxaban (Rivaroxaban 10 Mg Tab) 15 mg PO WITHDINNER [facility] Last Admin: 02/10/21 17:01 Dose: 15 mg Documented by: Tramadol HCl (Tramadol 50 Mg Tab) 50 mg PO Q6HR PRN PRN Reason: Pain Last Admin: 02/10/21 08:06 Dose: 50 mg Documented by: - Exam Quality Assessment: Denies: Supplemental Oxygen General: Reports: Alert, Oriented, Cooperative HEENT: Reports: Pupils Equal, Pupils Reactive Neck: Reports: Supple Lungs: Reports: Clear to Auscultation, Normal Respiratory Effort Cardiovascular: Reports: Regular Rate, Regular Rhythm GI/Abdominal Exam: Normal Bowel Sounds, Soft, Non-Tender, No Distention Back Exam: Reports: Normal Inspection Extremities: No Pedal Edema Skin: Reports: Warm, Dry, Intact Wound/Incisions: Reports: Healing Well Neurological: Reports: No New Focal Deficit Psy/Mental Status: Reports: Alert, Normal Affect, Normal Mood
== END 2021-02-11 11:20 | disposition home or self-care (01) | DRG 948 ==
LOC: DL.MS 14:07
PROVIDERS: ADMIT Internal Medicine; ATTEND Internal Medicine
DX: R53.81 Other malaise (principal); F10.288 Alcohol dependence with other alcohol-induced disorder; K70.30 Alcoholic cirrhosis of liver without ascites; F41.9 Anxiety disorder, unspecified; F32.9 Major depressive disorder, single episode, unspecified; M10.9 Gout, unspecified; D64.9 Anemia, unspecified; M85.80 Other specified disorders of bone density and structure, unspecified site; H54.7 Unspecified visual loss; H91.90 Unspecified hearing loss, unspecified ear; M54.9 Dorsalgia, unspecified; M62.81 Muscle weakness (generalized); K29.70 Gastritis, unspecified, without bleeding; Z86.718 Personal history of other venous thrombosis and embolism; Z86.711 Personal history of pulmonary embolism; Z79.01 Long term (current) use of anticoagulants; Z90.710 Acquired absence of both cervix and uterus; Z79.899 Other long term (current) drug therapy; Z90.49 Acquired absence of other specified parts of digestive tract; Z98.84 Bariatric surgery status; Z85.3 Personal history of malignant neoplasm of breast
CPT/HCPCS: 36415; 80053; 85025; 97110-GO; 97161-GP; 97165-GO; A9270-GY

== ENCOUNTER 2021-05-24 22:45 | Emergency (ER) | payer MEDICAID ==
[2021-05-24] MEDS ORDERED: Acetaminophen/HYDROcodone 325-5 MG Tab PO ONE (22:59)
[2021-05-24 23:02] VITALS: BP 124/51; PULSE 79
--- NOTE | 2021-05-24 23:05 | EDM.PDOC ---
"ED HPI GENERAL MEDICAL PROBLEM - General Chief Complaint: Back Pain or Injury Stated Complaint: AMBULANCE Time Seen by Provider: 05/24/21 22:50 Source of Information: Reports: Patient History Limitations: Reports: No Limitations - History of Present Illness INITIAL COMMENTS - FREE TEXT/NARRATIVE: This 61 yo female patient was brought to the ED by [facility] due to a ground level fall. The patient reports she has a history of neuropathy and normally uses a cane or walker. Tonight, at about 2000, the patient reports she got up to walk a couple of feet when she fell directly on her back. The patient reports she has drank about a 6 pack of beer tonstephanie. The patient reports increased pain to her lower back and inability to move due to increased lower back pain. Onset: Today Onset Date: 05/24/21 Onset Time: 22:00 Duration: Constant Location: Reports: Back Quality: Reports: Ache, Sharp Severity: Severe Improves with: Reports: Rest Worsens with: Reports: Movement Context: Reports: Activity Middle Back Pain Score (Numeric/FACES): 9 - Related Data Allergies Allergy/AdvReac Type Severity Reaction Status Date / Time No Known Drug Allergies Allergy Other Verified 05/24/21 23:02 Home Meds: Home Meds Multivit-Min/Iron/Folic/Lutein [Multivitamin Women 50 Plus Tab] 1 tab PO DAILY 07/16/20 [History] Famotidine [Pepcid] 20 mg PO DAILY 02/08/21 [History] Acetaminophen [Tylenol] 650 mg PO Q4H PRN tablet 02/11/21 [Rx] Escitalopram Oxalate [Lexapro] 10 mg PO DAILY #30 tab 02/11/21 [Rx] Loratadine [Claritin] 10 mg PO DAILY tablet 02/11/21 [Rx] Potassium Chloride 20 meq PO DAILY #60 tab 02/11/21 [Rx] Rivaroxaban [Xarelto] 15 mg PO DAILY #30 tab 02/11/21 [Rx] Past Medical History HEENT History: Reports: Hard of Hearing, Impaired Vision, Sinusitis Other HEENT History: wears glasses, right [place] Cardiovascular History: Reports: Blood Clots/VTE/DVT Respiratory History: Reports: PE Gastrointestinal History: Reports: Fatty Liver, PUD, Other (See Below) Other Gastrointestinal History: hx ulcers, gastric bypass Genitourinary History: Reports: Pyelonephritis 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 (See Below) 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 Musculoskeletal History: Reports: Fracture, Gout Other Musculoskeletal History: Gout in 1970's, recent fall on 07/10/20 c fracture of L4 Neurological History: Reports: Vertigo Psychiatric History: Reports: Addiction, Anxiety, Depression Other Psychiatric History: ETOH Endocrine/Metabolic History: Reports: None, Osteopenia Hematologic History: Reports: Anemia, Folic Acid, Iron Deficiency Immunologic History: Reports: None Oncologic (Cancer) History: Reports: Breast Other Oncologic History: left Dermatologic History: Reports: Other (See Below) Other Dermatologic History: OPEN AREAS TO BOTH LOWER LEGS FOR A YEAR OR MORE, ulcers - Infectious Disease History Infectious Disease History: Reports: Chicken Pox, Measles - Past Surgical History Head Surgeries/Procedures: Reports: None HEENT Surgical History: Reports: Naso-Sinus Surgery, Other (See Below) Other HEENT Surgeries/Procedures: [place] rigth ear Cardiovascular Surgical History: Reports: None Respiratory Surgical History: Reports: None GI Surgical History: Reports: Appendectomy, Bariatric Procedure, Cholecystectomy, Colonoscopy, EGD Female Surgical History: Reports: Section, Hysterectomy, Mastectomy, Salpingo-Oophorectomy Other Female Surgeries/Procedures: left mastectomy, CA history Musculoskeletal Surgical History: Reports: Other (See Below) Other Musculoskeletal Surgeries/Procedures:: left partial mastectomy Oncologic Surgical History: Reports: Mastectomy Social & Family History - Family History Family Medical History: No Pertinent Family History Cardiac: Reports: Afib Hematologic: Reports: Other (See Below) Oncologic: Reports: Pancreatic - Caffeine Use Caffeine Use: Reports: Soda Other Caffeine Use: occasional - Living Situation & Occupation Living situation: Reports: , Alone Occupation: Employed ED ROS GENERAL - Review of Systems Review Of Systems: Comprehensive ROS is negative, except as noted in HPI. ED EXAM,LOWER BACK PAIN/INJURY - Physical Exam Exam: See Below Exam Limited By: No Limitations General Appearance: Alert, WD/WN, Moderate Distress Eye Exam: Bilateral Eye: EOMI, Normal Inspection, PERRL Ears: Normal External Exam, Normal Canal, Hearing Grossly Normal, Normal TMs Nose: Normal Inspection, Normal Mucosa, No Blood Throat/Mouth: Normal Inspection, Normal Lips, Normal Teeth, Normal Gums, Normal Oropharynx, Normal Voice, No Airway Compromise Head: Atraumatic, Normocephalic Neck: Normal Inspection, Supple, Non-Tender, Full Range of Motion Respiratory/Chest: No Respiratory Distress, Lungs Clear, Normal Breath Sounds, No Accessory Muscle Use, Chest Non-Tender Cardiovascular: Normal Peripheral Pulses, Regular Rate, Rhythm, No Edema, No Gallop, No JVD, No Murmur, No Rub GI/Abdominal: Normal Bowel Sounds, Soft, Non-Tender, No Organomegaly, No Distention, No Abnormal Bruit, No Mass (Female) Exam: Deferred Rectal (Female) Exam: Deferred Back Exam: Paraspinal Tenderness (lower lumbar), Vertebral Tenderness (Lower lumbar) Extremities: Normal Inspection, Normal Range of Motion, Non-Tender, No Pedal Edema, Normal Capillary Refill Neurological: Alert, Normal Mood/Affect, Normal Dorsiflexion, CN II-XII Intact, Normal Plantar Flexion, Normal Gait, Normal Reflexes, No Motor/Sensory Deficits, Oriented x 3 Psychiatric: Normal Affect, Normal Mood Skin Exam: Warm, Dry, Intact, Normal Color, No Rash Lymphatic: No Adenopathy Course - Vital Signs Last Recorded V/S: Last Vital Signs Temp 98.0 F 05/24/21 23:01 Pulse 79 05/24/21 23:01 Resp 20 05/24/21 23:01 BP 124/51 L 05/24/21 23:01 Pulse Ox 98 05/24/21 23:01 - Orders/Labs/Meds Meds: Medications Discontinued Medications Generic Name Dose Route Start Last Admin Trade Name Robyn PRN Reason Stop Dose Admin Hydrocodone Bitart/Acetaminophen 1 tab 05/24/21 22:59 05/24/21 23:15 Acetaminophen/Hydrocodone 325-5 Mg Tab PO 05/24/21 23:00 1 tab ONETIME ONE Administration Hydrocodone Bitart/Acetaminophen 1 tab 05/25/21 01:24 05/25/21 01:48 Acetaminophen/Hydrocodone 325-10 Mg Tab PO 05/25/21 01:25 1 tab ONETIME ONE Administration - Radiology Interpretation Free Text/Narrative:: [facility] Final Radiology Report Call: [phone] assistance Online chat: [email or web address] Name: APOLLO VAIL Age: 61Years F Date: 05/25/2021 SSN: -- : 1960 Study: CT LUMBAR SPINE WO CONT Requesting Physician: Bon Giron Images: [phone] Addl Studies: Provided Clinical History: ground level fall with low back pain Contrast: Without Contrast Medium: Contrast Amount: Contrast Method: Page 1 of 2 PROCEDURE INFORMATION: Exam: CT Lumbar Spine Without Contrast Exam date and time: 05/25/2021 12:21 AM Age: 61 years old Clinical indication: Low back pain; Patient HX: HX breast CA, ; additional info: Ground level fall with low back pain TECHNIQUE: Imaging protocol: Computed tomography images of the lumbar spine without contrast. Radiation optimization: All CT scans at this facility use at least one of these dose optimization techniques: automated exposure control; mA and/or kV adjustment per patient size (includes targeted exams where dose is matched to clinical indication); or iterative reconstruction. COMPARISON: CT Lumbar Spine wo Cont 07/16/2020 6:17 PM FINDINGS: Vertebrae: Near anatomic alignment. Stable focal compression superior endplate L4. Very subtle minimal compression deformity superior endplate L1 appears to reflect a subtle change from the prior study. Several vague fracture lines appear to course through the superior endplate in this area in the axial projection there may be minimal perivertebral hematoma. There is no acute fracture otherwise. T12-L1: No significant compressive lesion is seen. No L1 retropulsed fragment. L1-L2: No significant compressive lesion is seen. L2-L3: There is a mild broad-based diffuse disc bulge.No significant compressive lesion is seen. L3-L4: There is a mild broad-based diffuse disc bulge.No significant compressive lesion is seen. L4-L5: There is a small central focal abnormality compatible with small central disc herniation/protrusion.There is mild facet and ligamentum flavum hypertrophy at this level.There is a mild broad-based diffuse disc bulge.There is no significant spinal stenosis at this level. L5-S1: There is a moderate broad-based diffuse disc bulge.There is no significant spinal stenosis at this level. Other bones/joints: No blastic or lytic lesions are seen. APOLLO VAIL | Final Radiology Report CONFIDENTIALITY STATEMENT This report is intended only for use by the referring physician, and only in accordance with law. If you received this in error, call [phone]. Page 2 of 2 Soft tissues: See above. IMPRESSION: 1. Subtle acute/subacute compression fracture superior endplate L1 suspect. Confirm with MR when possible. 2. No L1 retropulsed fragment. 3. Chronic focal compression deformity superior endplate L4. 4. Degenerative changes as described. Thank you for allowing us to participate in the care of your patient. Dictated and Authenticated by: Christophe Oconnor MD 05/25/2021 1:16 AM Central Time ([place] & [place]) - Re-Assessments/Exams Free Text/Narrative Re-Assessment/Exam: 05/25/21 00:16 The patient continues to report increased back pain when talked to, but was resting on her side when there were no staff in the room. 05/25/21 02:20 The patient reports the pain medication is starting to work for her. Departure - Departure Time of Disposition: 02:21 Disposition: Home, Self-Care 01 Condition: Fair Clinical Impression: Low back pain Qualifiers: Chronicity: acute Back pain laterality: bilateral Sciatica presence: without sciatica Qualified Code(s): M54.5 - Low back pain - Discharge Information *PRESCRIPTION DRUG MONITORING PROGRAM REVIEWED*: Not Applicable *COPY OF PRESCRIPTION DRUG MONITORING REPORT IN PATIENT PETEY: Not Applicable Forms: ED Department Discharge Care Plan Goals: The patient was advised of the examination and CT results during the visit. The patient was given oral pain medications during the visit. The patient was discharged with a script for [place] (5/325) #8 to take 1 by mouth every 6 hours as needed for pain. The patient should follow-up with her primary care facility within the next week for continued evaluation and further management. If the patient has any additional symptoms or concerns, the patient should either return to the emergency department or visit her primary care facility. Sepsis Event Note (ED) - Focused Exam Vital Signs: Vital Signs Temp Pulse Resp BP Pulse Ox 05/24/21 23:01 98.0 F 79 20 124/51 L 98"
--- NOTE | 2021-05-25 01:16 | CT ---
PROCEDURE INFORMATION: Exam: CT Lumbar Spine Without Contrast Exam date and time: 05/25/2021 12:21 AM Age: 61 years old Clinical indication: Low back pain; Patient HX: HX breast CA, ; additional info: Ground level fall with low back pain TECHNIQUE: Imaging protocol: Computed tomography images of the lumbar spine without contrast. Radiation optimization: All CT scans at this facility use at least one of these dose optimization techniques: automated exposure control; mA and/or kV adjustment per patient size (includes targeted exams where dose is matched to clinical indication); or iterative reconstruction. COMPARISON: CT Lumbar Spine wo Cont 07/16/2020 6:17 PM FINDINGS: Vertebrae: Near anatomic alignment. Stable focal compression superior endplate L4. Very subtle minimal compression deformity superior endplate L1 appears to reflect a subtle change from the prior study. Several vague fracture lines appear to course through the superior endplate in this area in the axial projection there may be minimal perivertebral hematoma. There is no acute fracture otherwise. T12-L1: No significant compressive lesion is seen. No L1 retropulsed fragment. L1-L2: No significant compressive lesion is seen. L2-L3: There is a mild broad-based diffuse disc bulge.No significant compressive lesion is seen. L3-L4: There is a mild broad-based diffuse disc bulge.No significant compressive lesion is seen. L4-L5: There is a small central focal abnormality compatible with small central disc herniation/protrusion.There is mild facet and ligamentum flavum hypertrophy at this level.There is a mild broad-based diffuse disc bulge.There is no significant spinal stenosis at this level. L5-S1: There is a moderate broad-based diffuse disc bulge.There is no significant spinal stenosis at this level. Other bones/joints: No blastic or lytic lesions are seen. Soft tissues: See above. IMPRESSION: 1. Subtle acute/subacute compression fracture superior endplate L1 suspect. Confirm with MR when possible. 2. No L1 retropulsed fragment. 3. Chronic focal compression deformity superior endplate L4. 4. Degenerative changes as described.
[2021-05-25] MEDS ORDERED: Acetaminophen/HYDROcodone 325-10 MG Tab PO ONE (01:24)
== END 2021-05-25 02:51 | disposition home or self-care (01) ==
LOC: DL.ED 22:45
DX: M54.5 Low back pain (principal); Z79.01 Long term (current) use of anticoagulants; W18.39XA Other fall on same level, initial encounter
CPT/HCPCS: 72131; 99283-25; A9270-GY

== ENCOUNTER 2021-06-19 14:57 | Emergency (ER) | payer MEDICAID ==
[2021-06-19 15:21] VITALS: BP 123/71; PULSE 82
[2021-06-19 16:02] LABS: AMPHETAMINES,URINE NEGATIVE (NEGATIVE); BARBITURATES,URINE NEGATIVE (NEGATIVE); BENZODIAZEPINE,URINE NEGATIVE (NEGATIVE); MDMA (ECSTASY), URINE NEGATIVE (NEGATIVE); METHADONE,URINE NEGATIVE (NEGATIVE); METHAMPHETAMINES,URINE NEGATIVE (NEGATIVE); OPIATES,URINE NEGATIVE (NEGATIVE); OXYCODONE,URINE NEGATIVE (NEGATIVE); PHENCYCLIDINE,URINE NEGATIVE (NEGATIVE); TCA,URINE NEGATIVE (NEGATIVE)
[2021-06-19] MEDS ORDERED: Sodium Chloride 0.9% 1,000 ML IV ONE (16:12)
[2021-06-19 16:16] LABS: ANION GAP 17.9 mEq/L (7-13); CHLORIDE,CL 104 mmol/L (98-107); SODIUM,NA 143 mmol/L (136-145)
--- NOTE | 2021-06-19 16:34 | EDM.PDOC ---
<Bon Giron M - Last Filed: 06/19/21 17:55> ED HPI GENERAL MEDICAL PROBLEM - General Chief Complaint: Lower Extremity Injury/Pain Stated Complaint: CANT FEEL LEGS Time Seen by Provider: 06/19/21 15:30 Source of Information: Reports: Patient History Limitations: Reports: No Limitations - History of Present Illness INITIAL COMMENTS - FREE TEXT/NARRATIVE: This 61 yo female patient reports to the ED due to no feeling in bilateral lower extremities. The patient reports her symptoms started this morning when she woke up this morning. The patient reports she did sleep on her couch last night. The patient reports she has a history of back fractures. The patient also reports she has been hospitalized for blood clots in the past. The patient reports she has not been able to feel anything below her knees. The patient was able to stand and move from the wheelchair to the bed. The patient reports she dose have a history of peripheral neuropathy, but does not take any medications for that. The patient has a cane and walker at home. Onset: Today Duration: Constant Location: Reports: Lower Extremity, Left (below the knee), Lower Extremity, Right (below the knee) Quality: Reports: Other Severity: Moderate Improves with: Reports: None Worsens with: Reports: None Context: Reports: Other Headache Pain Score (Numeric/FACES): 7 - Related Data Allergies Allergy/AdvReac Type Severity Reaction Status Date / Time No Known Drug Allergies Allergy Other Verified 06/19/21 15:21 Home Meds: Home Meds Multivit-Min/Iron/Folic/Lutein [Multivitamin Women 50 Plus Tab] 1 tab PO DAILY 07/16/20 [History] Famotidine [Pepcid] 20 mg PO DAILY 02/08/21 [History] Acetaminophen [Tylenol] 650 mg PO Q4H PRN tablet 02/11/21 [Rx] Escitalopram Oxalate [Lexapro] 10 mg PO DAILY #30 tab 02/11/21 [Rx] Loratadine [Claritin] 10 mg PO DAILY tablet 02/11/21 [Rx] Potassium Chloride 20 meq PO DAILY #60 tab 02/11/21 [Rx] Rivaroxaban [Xarelto] 15 mg PO DAILY #30 tab 02/11/21 [Rx] Past Medical History HEENT History: Reports: Hard of Hearing, Impaired Vision, Sinusitis Other HEENT History: wears glasses, right COWLITZ Cardiovascular History: Reports: Blood Clots/VTE/DVT Respiratory History: Reports: PE Gastrointestinal History: Reports: Fatty Liver, PUD, Other (See Below) Other Gastrointestinal History: hx ulcers, gastric bypass Genitourinary History: Reports: Pyelonephritis [employer]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 (See Below) 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 Musculoskeletal History: Reports: Fracture, Gout Other Musculoskeletal History: Gout in 1970's, recent fall on 07/10/20 c fracture of L4 Neurological History: Reports: Vertigo Psychiatric History: Reports: Addiction, Anxiety, Depression Other Psychiatric History: ETOH Endocrine/Metabolic History: Reports: None, Osteopenia Hematologic History: Reports: Anemia, Folic Acid, Iron Deficiency Immunologic History: Reports: None Oncologic (Cancer) History: Reports: Breast Other Oncologic History: left Dermatologic History: Reports: Other (See Below) Other Dermatologic History: OPEN AREAS TO BOTH LOWER LEGS FOR A YEAR OR MORE, ulcers - Infectious Disease History Infectious Disease History: Reports: Chicken Pox, Measles - Past Surgical History Head Surgeries/Procedures: Reports: None HEENT Surgical History: Reports: Naso-Sinus Surgery, Other (See Below) Other HEENT Surgeries/Procedures: COWLITZ rig ear Cardiovascular Surgical History: Reports: None Respiratory Surgical History: Reports: None GI Surgical History: Reports: Appendectomy, Bariatric Procedure, Cholecystec michelle, Colonoscopy, EGD Female Surgical History: Reports: Section, Hysterectomy, Mastectomy, Salpingo-Oophorectomy Other Female Surgeries/Procedures: left mastectomy, CA history Musculoskeletal Surgical History: Reports: Other (See Below) Other Musculoskeletal Surgeries/Procedures:: left partial mastectomy Oncologic Surgical History: Reports: Mastectomy Social & Family History - Family History Family Medical History: No Pertinent Family History Cardiac: Reports: Afib Hematologic: Reports: Other (See Below) Oncologic: Reports: Pancreatic - Tobacco Use Tobacco Use Status *Q: Never Tobacco User Second Hand Smoke Exposure: No - Caffeine Use Caffeine Use: Reports: Soda Other Caffeine Use: occasional - Recreational Drug Use Recreational Drug Use: No - Living Situation & Occupation Living situation: Reports: , Alone Occupation: Employed Review of Systems - Review of Systems Review Of Systems: Comprehensive ROS is negative, except as noted in HPI. ED EXAM, GENERAL - Physical Exam Exam: See Below Exam Limited By: No Limitations General Appearance: Alert, WD/WN, Moderate Distress Eye Exam: Bilateral Eye: EOMI, Normal Inspection, PERRL Ears: Normal External Exam, Normal Canal, Hearing Grossly Normal, Normal TMs Nose: Normal Inspection, Normal Mucosa, No Blood Throat/Mouth: Normal Inspection, Normal Lips, Normal Teeth, Normal Gums, Normal Oropharynx, Normal Voice, No Airway Compromise Head: Atraumatic, Normocephalic Neck: Normal Inspection, Supple, Non-Tender, Full Range of Motion Respiratory/Chest: No Respiratory Distress, Lungs Clear, Normal Breath Sounds, No Accessory Muscle Use, Chest Non-Tender Cardiovascular: Normal Peripheral Pulses, Regular Rate, Rhythm, No Edema, No Gallop, No JVD, No Murmur, No Rub GI/Abdominal: Normal Bowel Sounds, Soft, Non-Tender, No Organomegaly, No Distention, No Abnormal Bruit, No Mass (Female) Exam: Deferred Rectal (Female) Exam: Deferred Back Exam: Other (chronic lower back pain due to injury) Extremities: Normal Inspection, Normal Range of Motion, No Pedal Edema, Normal Capillary Refill, Other (The patient reports she could not feel anything in her lower extremities, but when babinski reflex was tested, the patient jumped and reports she "can feel that". ) Neurological: Alert, Oriented, CN II-XII Intact, Normal Cognition, Normal Reflexes, Sensory/Motor Deficit (Patient reports lower extremities feel numb) Psychiatric: Normal Affect, Normal Mood Skin Exam: Warm, Dry, Intact, Normal Color, No Rash Lymphatic: No Adenopathy Departure - Departure Disposition: Home, Self-Care 01 Clinical Impression: Tibial vein thrombosis Qualifiers: Laterality: left Qualified Code(s): I80.232 - Phlebitis and thrombophlebitis of left tibial vein - Discharge Information Referrals: Alesia Lerma NP [Primary Care Provider] - Forms: ED Department Discharge Additional Instructions: Reviewed US results with patient. Recommended she continues with her Eliquis 5 mg BID and follow up with her PCP. Encouraged her to elevated her feet when sitting or laying down. Return to ER if symptoms worsens. Sepsis Event Note (ED) - Evaluation Sepsis Screening Result: No Definite Risk <Beto Portillo - Last Filed: 06/19/21 21:43> Course - Vital Signs Last Recorded V/S: Last Vital Signs Temp 97.3 F 06/19/21 15:01 Pulse 82 06/19/21 15:01 Resp 16 06/19/21 15:01 BP 123/71 06/19/21 15:01 Pulse Ox 98 06/19/21 15:01 - Orders/Labs/Meds Labs: Laboratory Tests 06/19/21 06/19/21 06/19/21 Range/Units 15:06 15:06 15:45 WBC 5.7 (5.0-10.0) 10^3/uL RBC 4.81 (4.2-5.4) 10^6/uL Hgb 13.1 D (12.0-16.0) g/dL Hct 38.6 (37.0-47.0) % MCV 80.2 (80-100) fL MCH 27.2 (27.0-34.0) pg MCHC 33.9 (33.0-35.0) g/dL Plt Count 159 D (150-450) 10^3/uL Neut % (Auto) 83.0 H (42.2-75.2) % Lymph % (Auto) 9.5 L (20.5-50.1) % [place] % (Auto) 6.9 (2-8) % Eos % (Auto) 0.2 L (1.0-3.0) % Baso % (Auto) 0.4 (0.0-1.0) % D-Dimer, Quantitative (0-400) ng/mL Sodium (136-145) mmol/L Potassium (3.5-5.1) mmol/L Chloride (98-107) mmol/L Carbon Dioxide (21-32) mmol/L Anion Gap (7-13) mEq/L BUN (7-18) mg/dL Creatinine (0.55-1.02) mg/dL Est Cr Clr Drug Dosing mL/min Estimated GFR (MDRD) BUN/Creatinine Ratio (No establ ref range) Glucose (70-99) mg/dL Calcium (8.5-10.1) mg/dL Total Bilirubin (0.2-1.0) mg/dL AST (15-37) U/L ALT (14-59) U/L Alkaline Phosphatase (46-116) U/L Total Protein (6.4-8.2) g/dL Albumin (3.4-5.0) g/dL Globulin Albumin/Globulin Ratio Urine Color Yellow (YELLOW) Urine Appearance Clear (CLEAR) Urine pH 6.0 (5.0-9.0) Ur Specific [place] >= 1.030 (1.005-1.030) Urine Protein Trace H (NEGATIVE) Urine Glucose (UA) Negative (NEGATIVE) Urine Ketones Trace H (NEGATIVE) Urine Occult Blood Trace-intact H (NEGATIVE) Urine Nitrite Negative (NEGATIVE) Urine Bilirubin Negative (NEGATIVE) Urine Urobilinogen 0.2 (0.2-1.0) mg/dL Ur Leukocyte Esterase Negative (NEGATIVE) Urine RBC 0-5 /HPF Urine WBC 0-5 (0-5/HPF) /HPF Ur Epithelial Cells Few (NOT SEEN) /HPF Amorphous Sediment Few (NOT SEEN) /HPF Urine Bacteria Moderate H (0-FEW/HPF) /HPF Urine Mucus Few H (NOT SEEN) /LPF Urine Opiates Screen Negative (NEGATIVE) Ur Oxycodone Screen Negative (NEGATIVE) Urine Methadone Screen Negative (NEGATIVE) Ur Barbiturates Screen Negative (NEGATIVE) U Tricyclic Antidepress Negative (NEGATIVE) Ur Phencyclidine Scrn Negative (NEGATIVE) Ur Amphetamine Screen Negative (NEGATIVE) U Methamphetamines Scrn Negative (NEGATIVE) Urine MDMA Screen Negative (NEGATIVE) U Benzodiazepines Scrn Negative (NEGATIVE) Urine Cocaine Screen Negative (NEGATIVE) U Marijuana (THC) Screen Negative (NEGATIVE) Ethyl Alcohol (0) mg/dL 06/19/21 06/19/21 Range/Units 15:45 15:45 WBC (5.0-10.0) 10^3/uL RBC (4.2-5.4) 10^6/uL Hgb (12.0-16.0) g/dL Hct (37.0-47.0) % MCV (80-100) fL MCH (27.0-34.0) pg MCHC (33.0-35.0) g/dL Plt Count (150-450) 10^3/uL Neut % (Auto) (42.2-75.2) % Lymph % (Auto) (20.5-50.1) % [place] % (Auto) (2-8) % Eos % (Auto) (1.0-3.0) % Baso % (Auto) (0.0-1.0) % D-Dimer, Quantitative 1790 H (0-400) ng/mL Sodium 143 (136-145) mmol/L Potassium 3.9 (3.5-5.1) mmol/L Chloride 104 (98-107) mmol/L Carbon Dioxide 25 (21-32) mmol/L Anion Gap 17.9 H (7-13) mEq/L BUN 6 L (7-18) mg/dL Creatinine 0.64 (0.55-1.02) mg/dL Est Cr Clr Drug Dosing 73.01 mL/min Estimated GFR (MDRD) > 60 BUN/Creatinine Ratio 9.4 (No establ ref range) Glucose 138 H (70-99) mg/dL Calcium 8.4 L (8.5-10.1) mg/dL Total Bilirubin 1.0 (0.2-1.0) mg/dL AST 47 H (15-37) U/L ALT 45 (14-59) U/L Alkaline Phosphatase 141 H (46-116) U/L Total Protein 6.5 (6.4-8.2) g/dL Albumin 3.6 (3.4-5.0) g/dL Globulin 2.9 Albumin/Globulin Ratio 1.2 Urine Color (YELLOW) Urine Appearance (CLEAR) Urine pH (5.0-9.0) Ur Specific [place] (1.005-1.030) Urine Protein (NEGATIVE) Urine Glucose (UA) (NEGATIVE) Urine Ketones (NEGATIVE) Urine Occult Blood (NEGATIVE) Urine Nitrite (NEGATIVE) Urine Bilirubin (NEGATIVE) Urine Urobilinogen (0.2-1.0) mg/dL Ur Leukocyte Esterase (NEGATIVE) Urine RBC /HPF Urine WBC (0-5/HPF) /HPF Ur Epithelial Cells (NOT SEEN) /HPF Amorphous Sediment (NOT SEEN) /HPF Urine Bacteria (0-FEW/HPF) /HPF Urine Mucus (NOT SEEN) /LPF Urine Opiates Screen (NEGATIVE) Ur Oxycodone Screen (NEGATIVE) Urine Methadone Screen (NEGATIVE) Ur Barbiturates Screen (NEGATIVE) U Tricyclic Antidepress (NEGATIVE) Ur Phencyclidine Scrn (NEGATIVE) Ur Amphetamine Screen (NEGATIVE) U Methamphetamines Scrn (NEGATIVE) Urine MDMA Screen (NEGATIVE) U Benzodiazepines Scrn (NEGATIVE) Urine Cocaine Screen (NEGATIVE) U Marijuana (THC) Screen (NEGATIVE) Ethyl Alcohol < 3 (0) mg/dL Meds: Medications Discontinued Medications Generic Name Dose Route Start Last Admin Trade Name Freq PRN Reason Stop Dose Admin Acetaminophen 1,000 mg 07/25/21 19:23 06/19/21 19:28 Acetaminophen 500 Mg Tab PO 06/19/21 19:24 1,000 mg ONETIME ONE Administration Sodium Chloride 1,000 mls @ 999 mls/hr 06/19/21 16:12 06/19/21 16:32 Normal Saline IV 06/19/21 17:12 999 mls/hr .BOLUS ONE Administration Ondansetron HCl 4 mg 06/19/21 19:17 06/19/21 19:30 Ondansetron 4 Mg/2 Ml Sdv IVPUSH 06/19/21 19:18 4 mg ONETIME ONE Administration - Re-Assessments/Exams Free Text/Narrative Re-Assessment/Exam: Report received from Bon Giron at 1730pm. Reviewed US results with patient. She was given tylenol 1000mg for back pain and Zofran for nausea. Recommended she continues with her Eliquis 5 mg BID and follow up with her PCP. Patient is noted to ambulate to the bathroom with the nurse using a walker. Encouraged her to elevated her feet when sitting or laying down. Patient verbalized understanding. 06/19/21 21:41 Departure - Departure Time of Disposition: 19:40 Condition: Good Sepsis Event Note (ED) - Focused Exam Vital Signs: Vital Signs Temp Pulse Resp BP Pulse Ox 06/19/21 15:01 97.3 F 82 16 123/71 98
--- NOTE | 2021-06-19 18:51 | US ---
PROCEDURE INFORMATION: Exam: US Duplex Lower Extremity Veins, Bilateral Exam date and time: 06/19/2021 5:24 PM Age: 61 years old Clinical indication: Pain; Other: Numbness; Leg, lower; Bilateral; Additional info: Elevated d-dimer, numbness bilateral lower ext. TECHNIQUE: Imaging protocol: Real-time duplex ultrasound of the extremities with 2-D lucia scale, color Doppler flow and spectral waveform analysis with image documentation. Complete exam focused on the bilateral lower extremity veins. COMPARISON: US Venous Doppler Lwr Ext Bi 03/12/2017 9:47 AM FINDINGS: Right deep veins: Unremarkable. The common femoral, femoral, proximal profunda femoral and popliteal veins are patent without thrombus. Normal Doppler waveforms. Normal compressibility and/or augmentation response. Right superficial veins: Saphenofemoral junction is patent without thrombus. Left deep veins: The left posterior tibial vein is noncompressible and demonstrates echogenic material compatible with thrombus. Left superficial veins: Saphenofemoral junction is patent without thrombus. Soft tissues: Unremarkable. IMPRESSION: 1. Thrombus within the left posterior tibial vein. No other deep venous thrombosis identified.
[2021-06-19] MEDS ORDERED: Ondansetron 4 MG/2 ML SDV IVPUSH ONE (19:17)
[2021-06-19] MEDS ORDERED: Acetaminophen 500 MG Tab PO ONE (19:23)
== END 2021-06-19 20:02 | disposition home or self-care (01) ==
LOC: DL.ED 14:57
DX: I80.232 Phlebitis and thrombophlebitis of left tibial vein (principal); Z79.01 Long term (current) use of anticoagulants
CPT/HCPCS: 36415; 80053; 80305; 80307; 81001; 85025; 85379; 93970; 96374; 99283; 99284; A9270; J2405; J7030

== ENCOUNTER 2022-06-01 18:35 | Inpatient (IN) | payer MEDICAID ==
[2022-06-01] MEDS ORDERED: LORazepam 2 MG/ML SDV IVPUSH ONE (19:37)
[2022-06-01 20:10] LABS: ANION GAP 14.3 mEq/L (7-13)
[2022-06-01] MEDS ORDERED: MVI, Adult with Vitamin K 10 ML, Folic Acid 1 MG, Thiamine 100 MG in Lactated Ringers 1... IV ONE ×4 (20:20)
[2022-06-01] MEDS ORDERED: Magnesium Sulfate/Water 2 GM in Premix Bag 1 BAG IV ONE (20:21)
[2022-06-01] MEDS ORDERED: Iopamidol 755 Mg/ML 100 ML Bottle IVPUSH ONE (20:21)
[2022-06-01] MEDS ORDERED: Potassium Chloride 20 MEQ in Premix Bag 1 BAG IV ONE (20:21)
[2022-06-01] MEDS ORDERED: Acetaminophen 325 MG Tab PO ONE (20:39)
[2022-06-01] MEDS ORDERED: Sodium Chloride 0.9% 1,000 ML IV ONE (21:41)
[2022-06-01 22:00] LABS: AMPHETAMINES,URINE NEGATIVE (NEGATIVE); BARBITURATES,URINE NEGATIVE (NEGATIVE); BENZODIAZEPINE,URINE NEGATIVE (NEGATIVE); MDMA (ECSTASY), URINE NEGATIVE (NEGATIVE); METHADONE,URINE NEGATIVE (NEGATIVE); METHAMPHETAMINES,URINE NEGATIVE (NEGATIVE); OPIATES,URINE NEGATIVE (NEGATIVE); OXYCODONE,URINE NEGATIVE (NEGATIVE); PHENCYCLIDINE,URINE NEGATIVE (NEGATIVE); TCA,URINE NEGATIVE (NEGATIVE)
[2022-06-01] MEDS ORDERED: Sodium Chloride 0.9% 500 ML IV SCH (23:45)
[2022-06-02] MEDS ORDERED: diphenhydrAMINE 50 MG/ML SDV IVPUSH ONE (01:18)
[2022-06-02] MEDS: Sodium Chloride 0.9% 1,000 ML IV SCH ×2 (01:46→09:25)
[2022-06-02] MEDS: LORazepam 1 MG Tab PO PRN ×3 (03:31→20:44)
[2022-06-02] MEDS: LORazepam 2 MG/ML SDV IVPUSH PRN ×4 (04:20→12:54)
[2022-06-02] MEDS: Ondansetron 4 MG/2 ML SDV IVPUSH PRN ×3 (07:31→20:43)
[2022-06-02] MEDS ORDERED: Docusate Sodium 100 MG Cap PO PRN (07:51)
[2022-06-02] MEDS: Multivitamins with Iron/Calcium/Folic Acid/Minerals Tab PO SCH (09:18)
[2022-06-02] MEDS: Famotidine 20 MG Tab PO SCH (09:18)
[2022-06-02] MEDS: Loratadine 10 MG Tab PO SCH (09:18)
[2022-06-02] MEDS: Escitalopram 10 MG Tab PO SCH (09:19)
[2022-06-02 10:19] LABS: ANION GAP 14.7 mEq/L (7-13)
[2022-06-02] MEDS: Rivaroxaban 10 MG Tab PO SCH (17:12)
[2022-06-02] MEDS: Acetaminophen/Butalbital/Caffeine 325-50-40 MG Tab PO PRN (20:34)
[2022-06-03] MEDS: Escitalopram 10 MG Tab PO SCH (08:11)
[2022-06-03] MEDS: Loratadine 10 MG Tab PO SCH (08:11)
[2022-06-03] MEDS: Multivitamins with Iron/Calcium/Folic Acid/Minerals Tab PO SCH (08:11)
[2022-06-03] MEDS: Famotidine 20 MG Tab PO SCH (08:11)
[2022-06-03] MEDS: Acetaminophen/Butalbital/Caffeine 325-50-40 MG Tab PO PRN ×2 (08:12→16:04)
[2022-06-03] MEDS: LORazepam 1 MG Tab PO PRN ×4 (08:12→20:26)
[2022-06-03] MEDS: Ondansetron 4 MG/2 ML SDV IVPUSH PRN ×3 (08:56→18:05)
[2022-06-03] MEDS: Rivaroxaban 10 MG Tab PO SCH (18:06)
[2022-06-03] MEDS ORDERED: Acetaminophen/Butalbital/Caffeine 325-50-40 MG Tab PO ONE (22:08)
[2022-06-03] MEDS ORDERED: Melatonin 3 MG Tab PO SCH (22:13)
[2022-06-03] MEDS: Melatonin 3 MG Tab PO PRN (22:37)
[2022-06-04] MEDS: LORazepam 1 MG Tab PO PRN ×7 (00:32→23:49)
[2022-06-04 06:49] LABS: ANION GAP 13.6 mEq/L (7-13)
[2022-06-04] MEDS: Loratadine 10 MG Tab PO SCH (08:12)
[2022-06-04] MEDS: Escitalopram 10 MG Tab PO SCH (08:12)
[2022-06-04] MEDS: Multivitamins with Iron/Calcium/Folic Acid/Minerals Tab PO SCH (08:12)
[2022-06-04] MEDS: Ciprofloxacin 500 MG Tab PO SCH ×2 (08:12→20:07)
[2022-06-04] MEDS: Famotidine 20 MG Tab PO SCH (08:12)
[2022-06-04] MEDS: Ondansetron 4 MG/2 ML SDV IVPUSH PRN (10:44)
[2022-06-04] MEDS: Acetaminophen/Butalbital/Caffeine 325-50-40 MG Tab PO PRN (14:07)
[2022-06-04] MEDS: Rivaroxaban 10 MG Tab PO SCH (17:40)
[2022-06-04] MEDS: Melatonin 3 MG Tab PO PRN (20:07)
[2022-06-04] MEDS ORDERED: Melatonin 3 MG Tab PO SCH (21:00)
[2022-06-05] MEDS: LORazepam 1 MG Tab PO PRN ×4 (06:32→18:42)
[2022-06-05] MEDS: Ondansetron 4 MG/2 ML SDV IVPUSH PRN (07:54)
[2022-06-05] MEDS: Multivitamins with Iron/Calcium/Folic Acid/Minerals Tab PO SCH (08:58)
[2022-06-05] MEDS: Acetaminophen/Butalbital/Caffeine 325-50-40 MG Tab PO PRN ×2 (08:58→17:02)
[2022-06-05] MEDS: Loratadine 10 MG Tab PO SCH (09:00)
[2022-06-05] MEDS: Escitalopram 10 MG Tab PO SCH (09:00)
[2022-06-05] MEDS: Ciprofloxacin 500 MG Tab PO SCH ×2 (09:00→20:05)
[2022-06-05] MEDS: Famotidine 20 MG Tab PO SCH (09:00)
[2022-06-05] MEDS: Rivaroxaban 10 MG Tab PO SCH (17:02)
[2022-06-05 20:13] VITALS: BP 109/60; PULSE 94
== END 2022-06-05 22:32 | DRG 433 ==
LOC: DL.ED 18:35 → DL.MS 23:30 → OBSVTOIN 23:30
PROVIDERS: ADMIT Hospitalist; ATTEND Hospitalist
DX: K70.10 Alcoholic hepatitis without ascites (principal); F10.239 Alcohol dependence with withdrawal, unspecified; E87.8 Other disorders of electrolyte and fluid balance, not elsewhere classified; D64.9 Anemia, unspecified; E87.6 Hypokalemia; H91.90 Unspecified hearing loss, unspecified ear; H54.7 Unspecified visual loss; K76.0 Fatty (change of) liver, not elsewhere classified; M10.9 Gout, unspecified; F41.9 Anxiety disorder, unspecified; F32.A Depression, unspecified; M85.80 Other specified disorders of bone density and structure, unspecified site; E61.1 Iron deficiency; Z20.822 Contact with and (suspected) exposure to COVID-19; Z90.49 Acquired absence of other specified parts of digestive tract; Z79.899 Other long term (current) drug therapy; Z86.718 Personal history of other venous thrombosis and embolism; Z79.01 Long term (current) use of anticoagulants; Z90.710 Acquired absence of both cervix and uterus; Z90.12 Acquired absence of left breast and nipple; R82.71 Bacteriuria
CPT/HCPCS: 36415; 70450; 71260; 74177; 80053; 80305-QW; 80307; 81001; 82140; 82150; 83690; 83735; 85025; 85379; 85610; 87086; 87088; 87186; 93005; 93010; 96361; 96365; 96366; 96367; 96368; 96375; 96376; 97161-GP; 97166-GO; 97530-GO; 99284; 99285-25; A9270-GY; G0378; J1200; J2060; J2405; J3411; J3475; J3480; J3490; J7030; J7120; Q9967; U0002

== ENCOUNTER 2022-06-07 12:26 | Emergency (ER) | payer MEDICAID ==
[2022-06-07 13:39] VITALS: BP 148/71; PULSE 58
[2022-06-07] MEDS: Ondansetron 4 MG/2 ML SDV IVPUSH ONE (14:12)
[2022-06-07] MEDS: MVI, Adult with Vitamin K 10 ML, Folic Acid 1 MG, Thiamine 100 MG in Lactated Ringers 1... IV ONE ×4 (14:26)
[2022-06-07 14:37] LABS: ANION GAP 13.2 mEq/L (7-13); CHLORIDE,CL 105 mmol/L (98-107); ESTIMATED GFR 100 mL/min (>=60); SODIUM,NA 142 mmol/L (136-145)
[2022-06-07] MEDS: Metoclopramide 10 MG/2 ML SDV IVPUSH ONE (15:49)
[2022-06-07] MEDS: Famotidine 20 MG/2 ML SDV IVPUSH ONE (15:50)
== END 2022-06-07 16:15 ==
LOC: DL.ED 12:26
DX: R11.2 Nausea with vomiting, unspecified (principal); Z79.01 Long term (current) use of anticoagulants; Z79.899 Other long term (current) drug therapy; Z95.1 Presence of aortocoronary bypass graft
CPT/HCPCS: 36415; 80053; 80307; 81001; 82150; 83605; 83690; 83735; 84484; 85025; 87086; 87088; 87186; 96365; 96375; 99284; J2405; J2765; J3411; J3490; J7120